=== PATIENT | female | born 1950 | race Caucasian/White ===

== ENCOUNTER 2018-10-18 09:12 | Inpatient (IN) ==
--- NOTE | 2018-10-18 09:40 | ED ---
HPI General Chief Complaint: Altered Mental Status Stated Complaint: altered mental status Time Seen by Provider: 10/18/18 09:29 Source: patient and EMS Mode of arrival: EMS Limitations: altered mental status History of Present Illness HPI narrative: Patient is a 68-year-old female with history of COPD who wears 2- 4 L of oxygen at baseline, history of atrial fibrillation currently on Eliquis, as well as history of hyperlipidemia who presents to the emergency room by EMS for evaluation of increasing lethargy. Reports that patient recently returned home from a [facility] facility, reports that this morning, patient has been less responsive. Patient is alert to person, currently complaints of shortness of breath. MD complaint: Reports altered mental status and confusion Related Data Home Medications Medication Instructions Recorded Confirmed Lactobacillus acidoph-L.bulgar 1 tab PO DAILY 10/18/18 10/18/18 [Floranex] acetaminophen 650 mg PO Q6H PRN 10/18/18 10/18/18 albuterol sulfate [Ventolin HFA] 2 puff INHALATION Q6H PRN 10/18/18 10/18/18 amiodarone 200 mg PO DAILY 10/18/18 10/18/18 apixaban [Eliquis] 5 mg PO BID 10/18/18 10/18/18 aspirin [Aspirin Childrens] 81 mg PO DAILY 10/18/18 10/18/18 atorvastatin 80 mg PO DAILY 10/18/18 10/18/18 rfgfxqu-ctkyumeuc-fyxb 1 tab PO DAILY 10/18/18 10/18/18 cholecalciferol (vitamin D3) 1,000 unit PO DAILY 10/18/18 10/18/18 [Vitamin D3] cyanocobalamin (vitamin B-12) 500 mcg PO DAILY 10/18/18 10/18/18 [Vitamin B-12] docusate sodium 100 mg PO BID 10/18/18 10/18/18 furosemide 40 mg PO BID 10/18/18 10/18/18 ipratropium-albuterol 3 ml INHALATION Q4HR PRN 10/18/18 10/18/18 magnesium oxide 400 mg PO DAILY 10/18/18 10/18/18 metoprolol succinate 50 mg PO DAILY 10/18/18 10/18/18 nitroglycerin 0.4 mg SUBLINGUAL Q5-15M PRN 10/18/18 10/18/18 ropinirole 0.25 mg PO HS 10/18/18 10/18/18 umeclidinium-vilanterol [Anoro 1 inh INHALATION Q24H 10/18/18 10/18/18 Ellipta] Allergies Allergy/AdvReac Type Severity Reaction Status Date / Time ciprofloxacin [From Cipro] Allergy Rash Verified 10/18/18 09:41 metronidazole [From Flagyl] Allergy Rash Verified 10/18/18 09:41 Review of Systems ROS: all other systems reviewed are negative [facility] History 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 HEAD: Atraumatic. Normocephalic. EYES: Pupils equal and round. No scleral icterus. No injection or drainage. ENT: No nasal bleeding or discharge. Mucous membranes pink and moist. NECK: Trachea midline. No JVD. CARDIOVASCULAR: Irregular irregular rate and rhythm. No murmur appreciated. RESPIRATORY: Increased accessory muscle use. Scattered wheezing. Breath sounds equal bilaterally. GASTROINTESTINAL: Abdomen soft, non-tender, nondistended. Hepatic and splenic margins not palpable. MUSCULOSKELETAL: No obvious deformities. No clubbing. No cyanosis. No edema. NEUROLOGICAL: Awake and alert. No obvious cranial nerve deficits. Motor grossly within normal limits. Normal speech. PSYCHIATRIC: Appropriate mood and affect; insight and judgment normal, alert to person Course Initial Documented Vital Signs Temperature 98.0 F 10/18/18 09:22 Pulse Rate 96 H 10/18/18 09:22 Respiratory Rate 36 H 10/18/18 09:22 Blood Pressure 120/73 10/18/18 09:22 Pulse Oximetry 96 10/18/18 09:22 Last Documented Vital Signs Temperature 98.0 F 10/18/18 09:22 Pulse Rate 96 H 10/18/18 09:22 Respiratory Rate 36 H 10/18/18 09:22 Blood Pressure 120/73 10/18/18 09:22 Pulse Oximetry 96 10/18/18 09:22 Procedures Intubation Time Out Performed: Yes Sedative: etomidate Mg Given: 20 Paralytic: succinylcholine Mg Given: 100 Assist Device Used: other (D Blade - glide scope) ET Tube Size: 7.5 Tube Secured Depth (cm): 23 Tube Secured Location: teeth Tube Placement Confirmation: visualized tube passing through cords and equal breath sounds bilaterally Patient Tolerated Procedure: well Intubation Complications: none Critical Care Time Critical Care Time: Yes Total Critical Care Time: 30 Attestation: Aggregate critical care time was 30 minutes. Time to perform other separately billable procedures was not included in the critical care time. My time did not include minutes spent treating any other patients simultaneously or on activities that did not directly contribute to the patient's treatment. The services I provided to this patient were to treat and/or prevent clinically significant deterioration that could result in: , decompensation, deterioration I provided critical care services requiring my management, as noted below: Chart data review, documentation time, medication orders and management, vital sign assessments/reviewing monitor data, ordering and reviewing lab tests, ordering and interpreting/reviewing x-rays and diagnostic studies, care of the patient and discussion of the patient with the admitting physicians. Medical Decision Making MDM Narrative Medical decision making narrative: During the course of the patients emergency department visit, the patients history, examination, and differential diagnosis were reviewed with the patient. The patient was placed on a investigation officer with oximetry and frequent blood pressure monitoring. The patient had an IV access obtained and blood work sent for analysis. The patient was initially provided IV Solu-Medrol as well as duo nebs and IV fluids. Patient is wheezing with increased respiratory rate, she was ordered steroids as well as neb treatments, she is alert to person, I did initiate an altered mental status workup as well. Labs and studies are reviewed, patient with hypercapnic respiratory failure with a pH of 7.19, PCO2 was 111, PO2 was 99. Patient with increasing altered mentation, plan to intubate patient. Patient's is at bedside, reports that they are from [place], reports that she was recently hospitalized and was at a nursing care facility and was discharged 1 month ago, they were here for medication. Patients reports that he has been reports that patient is a full code, reports that she has not been acting like her normal self for the past few days. Discussed with patient's need for intubation, he agrees and consents to treatment. Patient was also found to have a mild right lung base consolidation , she has been pancultured, given her recent hospitalization, she has been given Zosyn as well as vancomycin. Patient will be admitted to the hospital for further treatment. case reviewed with Dr. Grullon who accepts pt to service Medical Screen Exam Complete: Yes Emergency Medical Condition: Yes Differential Diagnosis Differential Diagnosis: Encephalopathy, pneumonia, COPD exacerbation, hypoxemia , ACS, arrhythmia Medical Records Medical records reviewed: Yes I reviewed the patient's medical records. Lab Data Result diagrams: 10/18/18 09:30 10/18/18 09:30 Lab Results 10/18/18 10/18/18 10/18/18 Range/Units 09:30 09:30 09:30 CBC w Diff Auto diff final WBC 9.0 (4.0-11.0) th/mm3 RBC 3.73 L (4.00-5.30) mil/mm3 Hgb 12.1 (11.6-15.3) gm/dL Hct 37.2 (35.0-46.0) % MCV 99.8 (80.0-100.0) fL MCH 32.6 (27.0-34.0) pg MCHC 32.7 (32.0-36.0) % RDW 17.5 H (11.6-17.2) % Plt Count 240 (150-450) th/mm3 MPV 8.4 (7.0-11.0) fL Neut % (Auto) 77.6 H (16.0-70.0) % Lymph % (Auto) 11.8 (9.0-44.0) % Dundy % (Auto) 9.4 H (0.0-8.0) % Eos % (Auto) 0.7 (0.0-4.0) % Baso % (Auto) 0.5 (0.0-2.0) % Neut # (Auto) 7.0 (1.8-7.7) th/mm3 Lymph # (Auto) 1.1 (1.0-4.8) th/mm3 Dundy # (Auto) 0.8 (0.0-0.9) th/mm3 Eos # (Auto) 0.1 (0.0-0.4) th/mm3 Baso # (Auto) 0.0 (0.0-0.2) th/mm3 WBC Differential . Differential Comment . PT 11.9 H (9.8-11.6) sec INR 1.2 Ratio APTT 26.1 (23.4-31.7) sec Puncture Site Patient Temperature O2 Saturation (90-100) % ABG pH (7.380-7.420) ABG pCO2 (38-42) mmHg ABG pO2 (61-120) mmHg ABG HCO3 (22-26) mmol/L ABG O2 Content (12.0-20.0) Vol % ABG Base Excess (-2-2) mmol/L ABG Methemoglobin (0-2) % Josse Test Hemoglobin (12.0-16.0) G/DL Carboxyhemoglobin (0-4) % O2 Delivery Device Liter Flow L/M Critical Value Sodium 142 (136-145) meq/L Potassium 4.0 (3.5-5.1) meq/L Chloride 97 L (98-107) meq/L Carbon Dioxide 42.0 H (21.0-32.0) meq/L Anion Gap 3 L (5-15) meq/L BUN 55 H (7-18) mg/dL Creatinine 1.90 H (0.50-1.00) mg/dL Estimated GFR 26 L (>89) mL/min Random Glucose 156 H (74-106) mg/dL Lactic Acid (0.4-2.0) mmol/L Calcium 8.8 (8.5-10.1) mg/dL Magnesium 2.5 (1.5-2.5) mg/dL Total Bilirubin 0.4 (0.2-1.0) mg/dL AST 29 (15-37) U/L ALT 42 (10-53) U/L Alkaline Phosphatase 127 H (45-117) U/L Troponin I 0.03 (0.02-0.05) ng/mL Total Protein 7.5 (6.4-8.2) g/dL Albumin 3.0 L (3.4-5.0) g/dL 10/18/18 10/18/18 Range/Units 09:30 10:00 CBC w Diff WBC (4.0-11.0) th/mm3 RBC (4.00-5.30) mil/mm3 Hgb (11.6-15.3) gm/dL Hct (35.0-46.0) % MCV (80.0-100.0) fL MCH (27.0-34.0) pg MCHC (32.0-36.0) % RDW (11.6-17.2) % Plt Count (150-450) th/mm3 MPV (7.0-11.0) fL Neut % (Auto) (16.0-70.0) % Lymph % (Auto) (9.0-44.0) % Dundy % (Auto) (0.0-8.0) % Eos % (Auto) (0.0-4.0) % Baso % (Auto) (0.0-2.0) % Neut # (Auto) (1.8-7.7) th/mm3 Lymph # (Auto) (1.0-4.8) th/mm3 Dundy # (Auto) (0.0-0.9) th/mm3 Eos # (Auto) (0.0-0.4) th/mm3 Baso # (Auto) (0.0-0.2) th/mm3 WBC Differential Differential Comment PT (9.8-11.6) sec INR Ratio APTT (23.4-31.7) sec Puncture Site Right radial Patient Temperature 98.6 O2 Saturation 92 (90-100) % ABG pH 7.19 L* (7.380-7.420) ABG pCO2 111 H* (38-42) mmHg ABG pO2 99 (61-120) mmHg ABG HCO3 41 H (22-26) mmol/L ABG O2 Content 16.0 (12.0-20.0) Vol % ABG Base Excess 12.8 H (-2-2) mmol/L ABG Methemoglobin 1.4 (0-2) % Josse Test Present Hemoglobin 12.2 (12.0-16.0) G/DL Carboxyhemoglobin 4.2 H (0-4) % O2 Delivery Device Nasal cannula Liter Flow 3.00 L/M Critical Value Yes Sodium (136-145) meq/L Potassium (3.5-5.1) meq/L Chloride (98-107) meq/L Carbon Dioxide (21.0-32.0) meq/L Anion Gap (5-15) meq/L BUN (7-18) mg/dL Creatinine (0.50-1.00) mg/dL Estimated GFR (>89) mL/min Random Glucose (74-106) mg/dL Lactic Acid 0.7 (0.4-2.0) mmol/L Calcium (8.5-10.1) mg/dL Magnesium (1.5-2.5) mg/dL Total Bilirubin (0.2-1.0) mg/dL AST (15-37) U/L ALT (10-53) U/L Alkaline Phosphatase (45-117) U/L Troponin I (0.02-0.05) ng/mL Total Protein (6.4-8.2) g/dL Albumin (3.4-5.0) g/dL Imaging Data Radiologist's impression: Chest X-Ray 10/18/18 09:42 CONCLUSION: Mild right base consolidation. Mild left base atelectasis. Mild cardiomegaly. ECG Data EKG Prior to Arrival: No Attestation: I personally reviewed and interpreted this ECG as follows: Interpretation: EKG at 0949: Afib at 90bpm, qt/qtc: 414/462, rbbb Discharge Plan Discharge Disposition Patient Disposition: ED Admit(ED Internal Use Only) Discharge Condition Condition: Critical Discharge Details Diagnosis: Acute respiratory failure with hypercapnia, Pneumonia Physicians Team ED Provider: Farhana Temple Rxs /Orders / Referrals /Forms Prescriptions: No Action furosemide 40 mg Tablet 40 mg PO BID RF: 0 atorvastatin 80 mg Tablet 80 mg PO DAILY RF: 0 acetaminophen 325 mg Tablet 650 mg PO Q6H PRN (Reason: Pain) RF: 0 ipratropium-albuterol 0.5 mg-3 mg(2.5 mg base)/3 mL Solution For Nebulization 3 ml INHALATION Q4HR PRN (Reason: Wheezing) RF: 0 amiodarone 200 mg Tablet 200 mg PO DAILY RF: 0 metoprolol succinate 50 mg Tablet Extended Release 24 Hr 50 mg PO DAILY RF: 0 magnesium oxide 400 mg (241.3 mg magnesium) Tablet 400 mg PO DAILY RF: 0 cyanocobalamin (vitamin B-12) [Vitamin B-12] 500 mcg Tablet 500 mcg PO DAILY RF: 0 ropinirole 0.25 mg Tablet 0.25 mg PO HS RF: 0 nitroglycerin 0.4 mg Tablet, Sublingual 0.4 mg SUBLINGUAL Q5-15M PRN (Reason: Chest Pain) RF: 0 docusate sodium 100 mg Capsule 100 mg PO BID RF: 0 aspirin [Aspirin Childrens] 81 mg Tablet,Chewable 81 mg PO DAILY RF: 0 albuterol sulfate [Ventolin HFA] 90 mcg/actuation Hfa Aerosol Inhaler 2 puff INHALATION Q6H PRN (Reason: Shortness Of Breath) RF: 0 cholecalciferol (vitamin D3) [Vitamin D3] 1,000 unit Capsule 1,000 unit PO DAILY RF: 0 ckqydpa-ullpdowgw-ecrf 333-133-5 mg Tablet 1 tab PO DAILY RF: 0 Lactobacillus acidoph-L.bulgar [Floranex] 1 million cell Tablet 1 tab PO DAILY RF: 0 apixaban [Eliquis] 5 mg Tablet 5 mg PO BID RF: 0 umeclidinium-vilanterol [Anoro Ellipta] 62.5-25 mcg/actuation Blister With Device 1 inh INHALATION Q24H RF: 0 Status ED Status: With Doctor
[2018-10-18] MEDS ORDERED: MethylPREDNISolone Sod Succinate Inj 125 MG/2 ML Vial IV.PUSH ONE (09:43)
[2018-10-18] MEDS ORDERED: Sod Chloride 0.9% Inj 1,000 ML IV.SIG SCH ×2 (09:45→11:30)
[2018-10-18 09:59] LABS: Baso % (Auto) 0.5 % (0.0-2.0); Eos # (Auto) 0.1 th/mm3 (0.0-0.4); Eos % (Auto) 0.7 % (0.0-4.0); Hematocrit 37.2 % (35.0-46.0); Hemoglobin 12.1 gm/dL (11.6-15.3); Lymph # (Auto) 1.1 th/mm3 (1.0-4.8); Lymph % (Auto) 11.8 % (9.0-44.0); Mean Corpuscular HGB Conc 32.7 % (32.0-36.0); Mean Corpuscular Hemoglobin 32.6 pg (27.0-34.0); Mean Corpuscular Volume 99.8 fL (80.0-100.0); Mean Platelet Volume 8.4 fL (7.0-11.0); Mono # (Auto) 0.8 th/mm3 (0.0-0.9); Mono % (Auto) 9.4 % (0.0-8.0); Neut % (Auto) 77.6 % (16.0-70.0); Platelet Count 240 th/mm3 (150-450); Red Blood Count 3.73 mil/mm3 (4.00-5.30); Red Cell Distribution Width 17.5 % (11.6-17.2)
--- NOTE | 2018-10-18 10:02 | XR ---
EXAM DATE: 10/18/2018 9:57 AM EST AGE/SEX: 68 years / Female INDICATIONS: Altered mental status, croup, short of breath CLINICAL DATA: This is the patient's initial encounter. Patient reports that signs and symptoms have been present for 1 day and indicates a pain score of Nonresponsive. MEDICAL/SURGICAL HISTORY: Non-responsive. Non-responsive. COMPARISON: No prior exams available for comparison. FINDINGS: There is mild consolidation at the right lung base. Mild atelectasis seen of the left base. No defini te pleural effusion demonstrated. No pneumothorax seen. Mild cardiomegaly noted. Previous median sternotomy CONCLUSION: Mild right base consolidation. Mild left base atelectasis. Mild cardiomegaly. Electronically signed by: Satya Pratt MD Board Certified Radiologist 10/18/2018 10:01 AM EST
[2018-10-18 10:08] LABS: ABG Base Excess 12.8 mmol/L (-2-2); ABG PCO2 111 mmHg (38-42); ABG PO2 99 mmHg (61-120)
[2018-10-18 10:12] LABS: Chloride 97 meq/L (98-107); Sodium 142 meq/L (136-145)
[2018-10-18] MEDS ORDERED: Vancomycin Inj 1,000 MG in Sodium Chlor 0.9% Inj 250 ML IV.SIG ONE ×2 (10:13→18:00)
[2018-10-18] MEDS ORDERED: Succinylcholine Inj 100 MG/5 ML Syringe IV.PUSH ONE (10:13)
[2018-10-18] MEDS ORDERED: Propofol 1000 mg/100 ml Inj 1,000 MG/100 ML BOTTLE IV.CONT PRN ×2 (10:13→11:11)
[2018-10-18] MEDS ORDERED: Piperacil/Tazo 3.375 GM Premix 3.375 GM/50 ML PIGGYBACK IV.SIG ONE (10:13)
[2018-10-18] MEDS ORDERED: Etomidate Inj 20 MG/10 ML Ampul IV.PUSH ONE (10:13)
[2018-10-18 10:15] LABS: Anion Gap 3 meq/L (5-15); Calcium 8.8 mg/dL (8.5-10.1)
[2018-10-18 10:16] LABS: Activated Partial Thrombo Time 26.1 sec (23.4-31.7); Blood Urea Nitrogen 55 mg/dL (7-18); Glucose,Random 156 mg/dL (74-106); INR 1.2 Ratio; Magnesium 2.5 mg/dL (1.5-2.5); Prothrombin Time 11.9 sec (9.8-11.6)
[2018-10-18 10:19] LABS: Alanine Aminotransferase 42 U/L (10-53); Aspartate Aminotransferase 29 U/L (15-37); Glomerular Filtration Rate 26 mL/min (>89)
[2018-10-18 10:20] LABS: Total Protein 7.5 g/dL (6.4-8.2)
[2018-10-18 10:21] LABS: Alkaline Phosphatase 127 U/L (45-117)
[2018-10-18] MEDS ORDERED: Succinylcholine Inj 200 MG/10 ML Vial ONE (10:21)
[2018-10-18 10:24] LABS: Troponin I 0.03 ng/mL (0.02-0.05)
--- NOTE | 2018-10-18 11:09 | XR ---
EXAM DATE: 10/18/2018 11:04 AM EST AGE/SEX: 68 years / Female INDICATIONS: ET tube placement CLINICAL DATA: This is the patient's subsequent encounter. Patient reports that signs and symptoms h ave been present for 1 day and indicates a pain score of Nonresponsive. MEDICAL/SURGICAL HISTORY: Non-responsive. Non-responsive. COMPARISON: [facility], CHEST 1V SINGLE AP, 10/18/2018. . FINDINGS: There is right greater than left bibasilar consolidation. A small right pleural effusion is also susp ected. I don't see a pneumothorax. Mild cardiomegaly unchanged. Median sternotomy changes are again noted. Patient is now intubated. Endotracheal tube tip is approximately 2.2 cm above the prince. CONCLUSION: 1. Interim intubation as above. 2. Right base consolidation probably slightly worse and with a possible small pleural effusion devel oping. 3. Left base consolidation developing. Electronically signed by: Satya Pratt MD Board Certified Radiologist 10/18/2018 11:08 AM EST
[2018-10-18] MEDS ORDERED: Acetaminophen 325 MG Tablet PO PRN (11:11)
[2018-10-18] MEDS ORDERED: Bisacodyl 10 MG Supp RECTAL PRN (11:11)
[2018-10-18] MEDS: Midazolam 100 MG/100 ML Inj 100 MG/100 ML BAG IV.CONT PRN (11:35)
[2018-10-18] MEDS: fentaNYL 10 mcg/mL Premix Drip 2,500 MCG/250 ML BAG IV.SIG PRN (11:46)
[2018-10-18] MEDS: Oral Hygiene Kit OROPHARYNG SCH ×2 (12:30→16:44)
--- NOTE | 2018-10-18 13:30 | US ---
EXAM DATE: 10/18/2018 1:26 PM EST AGE/SEX: 68 years / Female INDICATIONS: Bilateral leg swelling. CLINICAL DATA: This is the patient's initial encounter. Patient reports that signs and symptoms have been present for 1 day and indicates a pain score of Nonresponsive. MEDICAL/SURGICAL HISTORY: Chronic obstructive pulmonary disease. Gastroesophageal reflux disea se. Hypertension. Atrial fibrillation. None. COMPARISON: No prior exams available for comparison. TECHNIQUE: Venous ultrasound of both lower extremities was performed from the inguinal ligament to t he proximal calf. Real-time, color Doppler and spectral tracing, compression and augmentation techni ques were used. FINDINGS: Right Leg: Normal compression of the deep venous system from the inguinal region to the proximal cynthia f. No echogenic clot is seen. Normal response of the venous system to augmentation and respiration. Left Leg: Normal compression of the deep venous system from the inguinal region to the proximal calf . No echogenic clot is seen. Normal response of the venous system to augmentation and respiration. Other: None. CONCLUSION: 1. The study is negative for bilateral lower extremity deep venous thrombosis. Electronically signed by: Rj Lao MD Board Certified Radiologist 10/18/2018 1:29 PM EST
--- NOTE | 2018-10-18 13:59 | ECG ---
Date Performed: 10/18/2018 Time Performed: 09:49:07 PTAGE: 68 years EKG: ATRIAL FIBRILLATION RIGHT BUNDLE BRANCH BLOCK ABNORMAL ECG NO PREVIOUS TRACING DOCTOR: Jarvis Wallace Interpretating Date/Time 10/18/2018 13:58:13
[2018-10-18 14:08] LABS: ABG Base Excess 9.9 mmol/L (-2-2); ABG PCO2 63 mmHg (38-42); ABG PO2 72 mmHg (61-120)
[2018-10-18] MEDS ORDERED: Vancomycin Consult Pharmacy OTHER PRN (14:29)
[2018-10-18] MEDS: Sod Chloride 0.9% Inj 1,000 ML IV.CONT SCH (14:30)
[2018-10-18 14:38] LABS: Bilirubin,Urine Negative (Negative); Clarity,Urine Clear (Clear); Color,Urine Yellow (Yellw/Straw); Glucose,Urine (UA) Negative (Negative); Leukocyte Esterase,Urine Negative (Negative); Nitrite,Urine Negative (Negative); Urobilinogen,Urine 0.2 mg/dL (Less than 2)
[2018-10-18 14:49] LABS: Hyaline Casts,Urine 0-3 /lpf (0-3); RBC,Urine 0-3 /hpf (0-3); Squamous Epithelial Cell,Urine 0-5 /hpf (0-5); WBC,Urine 0-5 /hpf (0-5)
[2018-10-18 15:07] LABS: Albumin 2.8 g/dL (3.4-5.0)
[2018-10-18 15:11] LABS: Total Protein 7.2 g/dL (6.4-8.2)
[2018-10-18 15:20] LABS: Thyroid Stimulating Hormone 1.42 uIU/mL (0.358-3.740)
--- NOTE | 2018-10-18 15:57 | CT ---
EXAM DATE: 10/18/2018 3:36 PM EST AGE/SEX: 68 years / Female INDICATIONS: Increasing lethargy and less responsive this morning. CLINICAL DATA: This is the patient's initial encounter. Patient reports that signs and symptoms have been present for 1 day and indicates a pain score of Nonresponsive. MEDICAL/SURGICAL HISTORY: Chronic obstructive pulmonary disease. Gastroesophageal reflux disease. Hypertension. Atrial fibrillation. None. RADIATION DOSE: 60.83 CTDI (mGy) COMPARISON: No prior exams available for comparison. TECHNIQUE: CT of the head without contrast. Using automated exposure control and adjustment of the mA and/or kV according to patient size, radiation dose was kept as low as reasonably achievable to ob tain optimal diagnostic quality images. DICOM format image data is available electronically for revi ew and comparison. FINDINGS: Cerebrum: The ventricles are normal for age. No evidence of midline shift, mass lesion, hemorrhage or acute infarction. No extraaxial fluid collections are seen. Posterior Fossa: The cerebellum and brainstem are intact. The 4th ventricle is midline. The cerebe llopontine angle is unremarkable. Extracranial: The visualized portion of the orbits is intact. Skull: The calvaria is intact. No evidence of skull fracture. Endotracheal tube and orogastric tube noted. CONCLUSION: 1. No acute intracranial abnormality. . Electronically signed by: Rj Lao MD Board Certified Radiologist 10/18/2018 3:56 PM EST
[2018-10-18 16:13] LABS: T4 (Thyroxine) 10.7 mcg/dL (4.8-13.9)
--- NOTE | 2018-10-18 16:57 | XR ---
EXAM DATE: 10/18/2018 4:52 PM EST AGE/SEX: 68 years / Female INDICATIONS: NG tube placement CLINICAL DATA: This is the patient's subsequent encounter. Patient reports that signs and symptoms h ave been present for 1 day and indicates a pain score of Nonresponsive. MEDICAL/SURGICAL HISTORY: . Chronic obstructive pulmonary disease. Gastroesophageal reflux dis ease. Hypertension. Atrial fibrillation. . None. COMPARISON: No prior exams available for comparison. FINDINGS: A single frontal view of the upper abdomen in the supine position. Tip of the NG tube is just past th e GE junction in the body of the stomach. No dilated bowel loops within the visualized portions of th e abdomen. Heart is enlarged. Interstitial prominence involving the lung bases. No effusions. CONCLUSION: Tip of the NG tube just past the GE junction. Electronically signed by: Rj Lao MD Board Certified Radiologist 10/18/2018 4:56 PM EST
[2018-10-18] MEDS: Azithromycin Inj 500 MG in Sodium Chlor 0.9% Inj 250 ML IV.SIG SCH (17:12)
--- NOTE | 2018-10-18 18:06 | P.HPCC ---
History of Present Illness Service: ICU Primary Care Physician: Talha Maguire Chief Complaint: Hypercapnic respiratory failure History of Present Illness: This is a 68-year-old female that presented to the ED, with increased lethargy. Patient has a known history of COPD. Laboratory and imaging studies revealed the patient had a CO2 of 111 noted to be in hypercapnic respiratory failure and was emergently intubated in the ED. the patient was noted to have right basilar consolidation empiric antibiotics for H CAP was initiated secondary to the fact the patient had recently been in a detention facility for approximately 1 month. Patient's past medical history is significant for atrial fibrillation, COPD, morbid obesity, and tobacco use disorder. - Diagnosis (1) Tobacco use disorder Inpatient Certification: I certify that the inpatient services were ordered in accordance with Medicare regulations governing the order. 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 - Medical History Medical History: Medical History (Last Reviewed 10/18/18 @ 17:49 by Hue Grullon MD) A-fib COPD (chronic obstructive pulmonary disease) GERD (gastroesophageal reflux disease) Hypertension - Tobacco History Tobacco Use In Past 30 Days: Yes Smoking Status: Heavy tobacco smoker Tobacco Type: Cigarettes - Alcohol History How Often Do You Have a Drink Containing Alcohol: Never - Substance Use History Substance History: No History of Abuse - Travel History Recent Travel in the [place] Within the Last 8 Weeks: No Recent Travel Out of the Country Within the Last 8 Weeks: No - Immunization History Tetanus Immunization: Unsure Medications and Allergies Active Medications: Active Medications Acetaminophen (Tylenol) 650 mg PO Q6H PRN PRN Reason: PAIN 1-10 AND/OR FEVER >101F Al Hydroxide/Mg Hydroxide (Milk Of Magnmendez Liq) 30 ml PO Q12H PRN PRN Reason: Mild Constipation Albuterol (Duoneb Neb (Prn)) 1 ampul NEB Q2HR NEB PRN PRN Reason: SHORTNESS OF BREATH Albuterol (Duoneb Neb (Rony)) 1 ampul NEB Q4HR NEB [facility] Last Admin: 10/18/18 12:30 Dose: 1 ampul Amiodarone HCl (Cordarone) 200 mg PO DAILY [facility] Apixaban (Eliquis) 5 mg PO BID [facility] Aspirin (Aspirin Chew) 81 mg PO DAILY [facility] Bisacodyl (Dulcolax Supp) 10 mg RECTAL DAILY PRN PRN Reason: SEVERE CONSITIPATION Chlorhexidine Gluconate (Peridex 0.12% Oral Kit) 15 ml OROPHARYNG BID@0800, 2000 [facility] Chlorhexidine Gluconate (Chlorhexidine 2% Cloth) 3 pack TOPICAL DAILY@0400 RONY Stop: 10/24/18 03:59 Chlorhexidine Gluconate (Chlorhexidine 2% Cloth) 3 pack TOPICAL DAILY@0400 PRN PRN Reason: Extra cloth needed Stop: 10/24/18 03:59 Famotidine (Pepcid) 20 mg PO BID [facility] Famotidine (Pepcid Pf Inj) 20 mg IV.PUSH Q12HR [facility] Furosemide (Lasix Inj) 40 mg IV.PUSH BID@0900,1800 [facility] Last Admin: 10/18/18 17:08 Dose: 40 mg Midazolam HCl (Versed Inj) 100 mg in 100 mls @ 2 mls/hr IV.CONT TITRATE PRN; Protocol PRN Reason: See protocol Last Titration: 10/18/18 12:19 Dose: 2 mg/hr, 2 mls/hr Fentanyl (Fentanyl 10 Mcg/Ml Premix Drip) 2,500 mcg in 250 mls @ 5 mls/hr IV.SIG TITRATE PRN; Protocol PRN Reason: Per Protocol Last Titration: 10/18/18 16:47 Dose: 150 mcg/hr, 15 mls/hr Sodium Chloride (Ns Inj) 1,000 mls @ 84 mls/hr IV.CONT .[id number] [facility] Last Admin: 10/18/18 14:30 Dose: 84 mls/hr Propofol (Diprivan 1000 Mg/100 Ml Inj) 1,000 mg in 100 mls @ 3.198 mls/hr IV.CONT TITRATE PRN; Protocol PRN Reason: Per Protocol Cefepime HCl 1,000 mg/ Sodium (Chloride) 100 mls @ 200 mls/hr IV.SIG Q8H [facility] Last Admin: 10/18/18 16:56 Dose: 200 mls/hr Azithromycin 500 mg/ Sodium (Chloride) 250 mls @ 250 mls/hr IV.SIG Q24H [facility] Last Admin: 10/18/18 17:12 Dose: 250 mls/hr Vancomycin HCl 1,000 mg/ (Sodium Chloride) 250 mls @ 250 mls/hr IV.SIG ONCE ONE Stop: 10/18/18 18:59 Lactulose (Lactulose Liq) 30 ml PO DAILY PRN PRN Reason: SEVERE CONSITIPATION Metoprolol Tartrate (Lopressor) 25 mg PO BID [facility] Miscellaneous Medication () 1 each OROPHARYNG 0000,0400,1200,1600 [facility] Last Admin: 10/18/18 16:44 Dose: 1 each Ondansetron HCl (Zofran Inj) 4 mg IV.PUSH Q6H PRN PRN Reason: NAUSEA OR VOMITING Pharmacy Profile Note (Vancomycin Consult Pharmacy) 1 each OTHER UNSCH PRN PRN Reason: Pharmacy to dose Senna/Docusate Sodium (Paz-Colace) 1 tab PO BID [facility] Sennosides (Senokot) 17.2 mg PO Q12H PRN PRN Reason: Moderate Constipation Sodium Chloride (Ns Flush) 2 ml IV.FLUSH BID [facility] Sodium Chloride (Ns Flush) 2 ml IV.FLUSH PRN PRN PRN Reason: FLUSH AFTER USING IV ACCESS Allergies Allergy/AdvReac Type Severity Reaction Status Date / Time ciprofloxacin [From Cipro] Allergy Rash Verified 10/18/18 09:41 metronidazole [From Flagyl] Allergy Rash Verified 10/18/18 09:41 Home Medications Medication Instructions Recorded Confirmed Type Lactobacillus acidoph-L.bulgar 1 tab PO DAILY 10/18/18 10/18/18 History [Floranex] acetaminophen 650 mg PO Q6H PRN 10/18/18 10/18/18 History albuterol sulfate [Ventolin HFA] 2 puff INHALATION Q6H PRN 10/18/18 10/18/18 History amiodarone 200 mg PO DAILY 10/18/18 10/18/18 History apixaban [Eliquis] 5 mg PO BID 10/18/18 10/18/18 History aspirin [Aspirin Childrens] 81 mg PO DAILY 10/18/18 10/18/18 History atorvastatin 80 mg PO DAILY 10/18/18 10/18/18 History jtsbnmq-lhyzwbcqy-vbjk 1 tab PO DAILY 10/18/18 10/18/18 History cholecalciferol (vitamin D3) 1,000 unit PO DAILY 10/18/18 10/18/18 History [Vitamin D3] cyanocobalamin (vitamin B-12) 500 mcg PO DAILY 10/18/18 10/18/18 History [Vitamin B-12] docusate sodium 100 mg PO BID 10/18/18 10/18/18 History furosemide 40 mg PO BID 10/18/18 10/18/18 History ipratropium-albuterol 3 ml INHALATION Q4HR PRN 10/18/18 10/18/18 History magnesium oxide 400 mg PO DAILY 10/18/18 10/18/18 History metoprolol succinate 50 mg PO DAILY 10/18/18 10/18/18 History nitroglycerin 0.4 mg SUBLINGUAL Q5-15M PRN 10/18/18 10/18/18 History ropinirole 0.25 mg PO HS 10/18/18 10/18/18 History umeclidinium-vilanterol [Anoro 1 inh INHALATION Q24H 10/18/18 10/18/18 History Ellipta] Results - Labs CBC & Chem 7: 10/18/18 09:30 10/18/18 09:30 Labs: Short CBC 10/18/18 Range/Units 09:30 WBC 9.0 (4.0-11.0) th/mm3 Hgb 12.1 (11.6-15.3) gm/dL Hct 37.2 (35.0-46.0) % Plt Count 240 (150-450) th/mm3 [facility] 10/18/18 09:30 Sodium 142 Potassium 4.0 Chloride 97 L Carbon Dioxide 42.0 H BUN 55 H Creatinine 1.90 H Calcium 8.8 Cardiac Enzymes 10/18/18 10/18/18 Range/Units 09:30 14:38 Total Creatine Kinase 51 (26-192) U/L Troponin I 0.03 (0.02-0.05) ng/mL Liver Function 10/18/18 10/18/18 Range/Units 09:30 14:38 Total Bilirubin 0.4 0.7 (0.2-1.0) mg/dL Direct Bilirubin 0.3 H (0.0-0.2) mg/dL AST 29 34 (15-37) U/L ALT 42 39 (10-53) U/L Alkaline Phosphatase 127 H 119 H (45-117) U/L Albumin 3.0 L 2.8 L (3.4-5.0) g/dL Urine 10/18/18 Range/Units 13:57 Urine Color Yellow (Yellw/Straw) Urine Clarity Clear (Clear) Urine pH 6.0 (5.0-8.5) Ur Specific [place] 1.020 (1.002-1.035) Urine Protein Negative (Neg-Trace) mg/dL Urine Glucose (UA) Negative (Negative) mg/dL - Imaging Impressions Abdomen X-Ray 10/18/18 00:00 CONCLUSION: Tip of the NG tube just past the GE junction. Chest X-Ray 10/18/18 09:42 CONCLUSION: Mild right base consolidation. Mild left base atelectasis. Mild cardiomegaly. Chest X-Ray 10/18/18 10:37 CONCLUSION: 1. Interim intubation as above. 2. Right base consolidation probably slightly worse and with a possible small pleural effusion developing. 3. Left base consolidation developing. Venous Doppler Study 10/18/18 10:59 CONCLUSION: 1. The study is negative for bilateral lower extremity deep venous thrombosis. Head CT 10/18/18 14:32 CONCLUSION: 1. No acute intracranial abnormality. . Exam Vital signs: Vital Signs 10/18/18 09:22 10/18/18 09:40 10/18/18 09:50 Temperature 98.0 F Pulse Rate 96 H 99 H 97 H Respiratory Rate 36 H 18 16 Blood Pressure 120/73 Pulse Oximetry 96 10/18/18 09:53 10/18/18 10:00 10/18/18 11:11 Temperature Pulse Rate 97 H 92 H 89 Respiratory Rate 16 20 Blood Pressure 72/49 L Pulse Oximetry 94 L 99 10/18/18 11:38 10/18/18 12:01 10/18/18 12:19 Temperature Pulse Rate 92 H 80 Respiratory Rate 20 20 Blood Pressure 104/69 98/54 L 133/79 Pulse Oximetry 10/18/18 12:20 10/18/18 12:23 10/18/18 12:31 Temperature Pulse Rate 98 H 127 H Respiratory Rate 20 19 20 Blood Pressure Pulse Oximetry 99 99 10/18/18 12:35 10/18/18 12:45 10/18/18 13:00 Temperature Pulse Rate 102 H 94 H 96 H Respiratory Rate 29 H 19 18 Blood Pressure 122/72 114/89 132/71 Pulse Oximetry 96 95 98 10/18/18 13:15 10/18/18 13:30 10/18/18 13:45 Temperature Pulse Rate 102 H 90 100 H Respiratory Rate 18 17 18 Blood Pressure 114/67 118/68 113/61 Pulse Oximetry 98 95 10/18/18 13:59 10/18/18 14:00 10/18/18 14:15 Temperature Pulse Rate 102 H 90 Respiratory Rate 18 18 18 Blood Pressure 112/62 Pulse Oximetry 97 97 97 10/18/18 14:30 Temperature Pulse Rate 100 H Respiratory Rate 18 Blood Pressure 107/58 L Pulse Oximetry 95 Intake & Output 10/17/18 10/18/18 10/18/18 18:59 06:59 18:59 Intake Total 1023.5 / 1023.5 Balance 1023.5 / 1023.5 Weight 106.594 kg Intake: IV 1023.5 / 1023.5 Versed Inj 100 mg In 100 ml @ 2 1 / 1 MG/HR 2 mls/hr IV.CONT TITRATE PRN Rx#:[id number] Diprivan 1000 mg/100 ml Inj 1, 20 / 20 000 mg In 100 ml @ 5 MCG/KG/MIN 3.198 mls/hr IV.CONT TITRATE PRN Rx#:[id number] NS Inj 1,000 ML @ 1000 mls/hr 1000 / 1000 IV.SIG BOLUS RONY Rx#:[id number] fentaNYL 10 mcg/mL Premix Drip 2.5 / 2.5 2,500 mcg In 250 ml @ 50 MCG/HR 5 mls/hr IV.SIG TITRATE PRN Rx #:[id number] - Constitutional morbidly obese (Intubated and sedated) - Routine HEENT Exam Head: Present: normocephalic, atraumatic Eye: Present: PERRL ENT: Present: mucous membranes moist - Routine Neck Exam Present: supple, trachea midline - Routine Respiratory Exam Present: patient mechanically ventilated, decreased breath sounds - Routine Cardiovascular Exam Present: irregularly irregular - Routine Abdominal Exam Present: soft (obese), normoactive bowel sounds - Routine Extremities Exam Present: pulses intact, normal capillary refill Caprini VTE Risk Assessment Caprini VTE Risk Assessment: Moderate/High Risk (score >= 2) VTE Pharmacological Exception Reason: Documented Caprini Risk Assessment Model: Point Value = 1 Point Value = 2 Point Value = 3 Point Value = 5 Age 41-60 Minor surgery BMI > 25 kg/m2 Swollen legs Varicose veins or History of unexplained or recurrent spontaneous Oral contraceptives or hormone replacement Sepsis (< 1 month) Serious lung disease, including pneumonia (< 1 month) Abnormal pulmonary function Acute myocardial infarction Congestive heart failure (< 1 month) History of inflammatory bowel disease Medical patient at bed rest Age 61-74 Arthroscopic surgery Major open surgery (> 45 min) Laparoscopic surgery (> 45 min) Malignancy Confined to bed (> 72 hours) Immobilizing plaster cast Central venous access Age >= 75 History of VTE Family history of VTE Factor V Leiden Prothrombin [id number] Lupus anticoagulant Anticardiolipin antibodies Elevated serum homocysteine Heparin-induced thrombocytopenia Other congenital or acquired thrombophilia Stroke (< 1 month) Elective arthroplasty Hip, pelvis, or leg fracture Acute spinal cord injury (< 1 month) Prophylaxis Regimen: Total Risk Factor Score Risk Level Prophylaxis Regimen 0-1 Low Early ambulation 2 Moderate Order ONE of the following: *Sequential Compression Device (SCD) *Heparin 5000 units SQ BID 3-4 Higher Order ONE of the following medications: *Heparin 5000 units SQ TID *Enoxaparin/Lovenox 40 mg SQ daily (WT < 150 kg, CrCl > 30 mL/min) *Enoxaparin/Lovenox 30 mg SQ daily (WT < 150 kg, CrCl > 10-29 mL/min) *Enoxaparin/Lovenox 30 mg SQ BID (WT < 150 kg, CrCl > 30 mL/min) AND/OR *Sequential Compression Device (SCD) 5 or more Highest Order ONE of the following medications: *Heparin 5000 units SQ TID (Preferred with Epidurals) *Enoxaparin/Lovenox 40 mg SQ daily (WT < 150 kg, CrCl > 30 mL/min) *Enoxaparin/Lovenox 30 mg SQ daily (WT < 150 kg, CrCl > 10-29 mL/min) *Enoxaparin/Lovenox 30 mg SQ BID (WT < 150 kg, CrCl > 30 mL/min) AND *Sequential Compression Device (SCD) Assessment and Plan - Problem List (1) Tobacco use disorder Code(s): F17.200 - Nicotine dependence, unspecified, uncomplicated Status: Acute - Assessment and Plan Plan: Assessment Morbidly obese female recently in detention facility that presented with acute hypercapnic respiratory failure with emergent requirement for intubation, and probable HCAP pneumonia. Admit to ICU. Plan by systems: Neurologic: Continue Versed and fentanyl infusions currently at 2 mg/hour and 150 mics/hour to maintain ventilator synchrony Daily sedation vacation Neurochecks per ICU protocol CT head negative Respiratory: Acute hypercapnic respiratory failure Acute on chronic COPD exacerbation Tobacco use disorder Maintain O2 sat greater than 92% Ventilator bundle ABG 7.35/48/136/26/16 on FiO2 of 50% and mechanical ventilation Begin CPAP trials in a.m., if patient clinically stable Chest x-raynoted right basilar consolidation Duo nebs every 4 hours scheduled and every 2 hours as needed Plan for smoking cessation counseling post extubation Cardiovascular: Cardiomegaly Chronic atrial fibrillation Continue amiodarone 200 mg/day, aspirin 81 mg/day, metoprolol 25 mg twice daily , and Eliquis 5 mg twice daily Continue home dosing Lasix 40 mg twice daily Monitor QT interval-patient currently on azithromycin and home dose amiodarone Renal: SAMIRA Insert Branch strict Iand O -- Strict I/Os FEN/GI: Obesity Protein calorie malnutrition Albumin 3.0 Insert OGT Maintain n.p.o. status for now Zofran for nausea Famotidine for GI prophylaxis Hold atorvastatin Obtain lipid panel Heme/ID: Pneumonia Obtain blood, urine, sputum culture Obtain influenza A/B, strep pneumo antigen Obtain respiratory panel maker CBC Initiate empiric antibiotics cefepime, azithromycin, and vancomycin Endocrine: Glucose monitoring per ICU protocol, low-dose regimen -- SSI Prophylaxis: GI Prophylaxis Famotidine DVT Prophylaxis -- SCDs Patient on Eliquis 5 mg twice daily Lines: Of IVs x2. Central line if indicated Dispo: My billing statement This patient remains critically ill with one or more organ systems which are or may become a threat to life. I have spent in excess of 57 minutes discontinuously in the care and management of this patient. This time is exclusive of procedures, and includes, but is not limited to, evaluation of the patient, review of the medical record, discussions with family, consultants, nursing staff, or respiratory therapy, and documentation in the medical record. Code Status: Full Discussed Condition With: GRAIN ORIGINATION SPECIALIST at bedside. No family at bedside
[2018-10-18] MEDS: Chlorhexidine 0.12% Oral Kit 15 ML UDC OROPHARYNG SCH (20:38)
[2018-10-18] MEDS ORDERED: Famotidine PF Inj 20 MG/2 ML Vial IV.PUSH SCH (21:00)
[2018-10-18] MEDS: Sod Chloride 0.9% Inj 1,000 ML IV.SIG SCH ×2 (21:55→22:52)
[2018-10-18] MEDS: Metoprolol Tartrate 25 MG Tablet PO SCH (21:56)
[2018-10-18] MEDS: Famotidine 20 MG Tablet PO SCH (22:18)
[2018-10-18] MEDS: Senna/Docusate Sodium 8.6/50 MG Tablet PO SCH (22:18)
[2018-10-18] MEDS: Famotidine PF Inj 20 MG/2 ML Vial IV.PUSH SCH (22:18)
[2018-10-19] MEDS: Phenylephrine Inj 40 MG in Sodium Chlor 0.9% Inj 496 ML IV.CONT PRN ×2 (01:23→20:47)
[2018-10-19] MEDS: Sod Chloride 0.9% Inj 1,000 ML IV.CONT SCH ×2 (01:25→15:10)
[2018-10-19] MEDS: Oral Hygiene Kit OROPHARYNG SCH ×4 (01:27→18:10)
[2018-10-19] MEDS: fentaNYL 10 mcg/mL Premix Drip 2,500 MCG/250 ML BAG IV.SIG PRN (03:13)
[2018-10-19] MEDS ORDERED: Chlorhexidine Gluconate 2% 1 Pack (2 Cloths) TOPICAL PRN (04:00)
[2018-10-19 04:31] LABS: ABG PCO2 52 mmHg (38-42); ABG PO2 63 mmHg (61-120)
[2018-10-19] MEDS: Chlorhexidine Gluconate 2% 1 Pack (2 Cloths) TOPICAL SCH (04:31)
[2018-10-19 05:16] LABS: Baso # (Auto) 0.1 th/mm3 (0.0-0.2); Baso % (Auto) 1.4 % (0.0-2.0); Hematocrit 37.8 % (35.0-46.0); Hemoglobin 12.5 gm/dL (11.6-15.3); Lymph # (Auto) 0.5 th/mm3 (1.0-4.8); Lymph % (Auto) 5.7 % (9.0-44.0); Mean Corpuscular Hemoglobin 32.9 pg (27.0-34.0); Mean Corpuscular Volume 99.7 fL (80.0-100.0); Mono # (Auto) 0.6 th/mm3 (0.0-0.9); Mono % (Auto) 7.1 % (0.0-8.0); Neut # (Auto) 7.8 th/mm3 (1.8-7.7); Neut % (Auto) 85.8 % (16.0-70.0); Platelet Count 250 th/mm3 (150-450); Red Blood Count 3.79 mil/mm3 (4.00-5.30); Red Cell Distribution Width 17.8 % (11.6-17.2)
[2018-10-19 05:23] LABS: INR 1.3 Ratio
[2018-10-19 05:37] LABS: Alanine Aminotransferase 33 U/L (10-53); Albumin 2.6 g/dL (3.4-5.0); Alkaline Phosphatase 113 U/L (45-117); Anion Gap 6 meq/L (5-15); Aspartate Aminotransferase 27 U/L (15-37); Blood Urea Nitrogen 48 mg/dL (7-18); Calcium 8.1 mg/dL (8.5-10.1); Carbon Dioxide 34.4 meq/L (21.0-32.0); Chloride 106 meq/L (98-107); Glomerular Filtration Rate 40 mL/min (>89); Glucose,Random 164 mg/dL (74-106); Magnesium 1.8 mg/dL (1.5-2.5); Phosphorus 2.7 mg/dL (2.5-4.9); Potassium 4.1 meq/L (3.5-5.1); Sodium 146 meq/L (136-145)
[2018-10-19 06:27] LABS: Vancomycin,Random 11.9 Comment
--- NOTE | 2018-10-19 06:27 | XR ---
EXAM DATE: 10/19/2018 6:20 AM EST AGE/SEX: 68 years / Female INDICATIONS: Shortness of breath. CLINICAL DATA: This is the patient's subsequent encounter. Patient reports that signs and symptoms h ave been present for 2 days and indicates a pain score of Nonresponsive. MEDICAL/SURGICAL HISTORY: Non-responsive. Non-responsive. COMPARISON: [facility], CHEST 1V SINGLE AP, 10/18/2018. . FINDINGS: Endotracheal tube tip is just above the prince. Nasogastric tube descends to the stomach. Hazy bilate ral primarily basilar pleural-parenchymal opacity is grossly unchanged. Cardiac contours are grossly stable. CONCLUSION: Endotracheal tube tip is very close to the prince. Otherwise stable chest appearance Electronically signed by: Satya Garcia MD Board Certified Radiologist 10/19/2018 6:26 AM EST
[2018-10-19] MEDS ORDERED: Dextrose 50% in Water 50 ML Vial IV.PUSH PRN (06:34)
--- NOTE | 2018-10-19 07:05 | P.PNCC ---
Subjective Subjective Remarks/Hospital Course: 10/19: FiO2 requirements decreased to 50%. CPAP trials initiated early this a.m.. ETT retracted 2cm, due to chest x-ray results ,to 21cm. On daily sedation vacation GCS 11 T. She has periods of agitation she remains on low- dose Versed at 1 mg fentanyl at 100 mics currently on CPAP trials. Objective Vital Signs / I&O: Vital Signs 10/18/18 09:22 10/18/18 09:40 10/18/18 09:50 Temperature 98.0 F Pulse Rate 96 H 99 H 97 H Respiratory Rate 36 H 18 16 Blood Pressure 120/73 Pulse Oximetry 96 10/18/18 09:53 10/18/18 10:00 10/18/18 11:11 Temperature Pulse Rate 97 H 92 H 89 Respiratory Rate 16 20 Blood Pressure 72/49 L Pulse Oximetry 94 L 99 10/18/18 11:38 10/18/18 12:01 10/18/18 12:19 Temperature Pulse Rate 92 H 80 Respiratory Rate 20 20 Blood Pressure 104/69 98/54 L 133/79 Pulse Oximetry 10/18/18 12:20 10/18/18 12:23 10/18/18 12:31 Temperature Pulse Rate 98 H 127 H Respiratory Rate 20 19 20 Blood Pressure Pulse Oximetry 99 99 10/18/18 12:35 10/18/18 12:45 10/18/18 13:00 Temperature Pulse Rate 102 H 94 H 96 H Respiratory Rate 29 H 19 18 Blood Pressure 122/72 114/89 132/71 Pulse Oximetry 96 95 98 10/18/18 13:15 10/18/18 13:30 10/18/18 13:45 Temperature Pulse Rate 102 H 90 100 H Respiratory Rate 18 17 18 Blood Pressure 114/67 118/68 113/61 Pulse Oximetry 98 95 10/18/18 13:59 10/18/18 14:00 10/18/18 14:15 Temperature Pulse Rate 102 H 90 Respiratory Rate 18 18 18 Blood Pressure 112/62 Pulse Oximetry 97 97 97 10/18/18 14:30 10/18/18 16:00 10/18/18 17:55 Temperature Pulse Rate 100 H 96 H Respiratory Rate 18 18 Blood Pressure 107/58 L Pulse Oximetry 95 94 L 10/18/18 18:00 10/18/18 18:46 10/18/18 19:02 Temperature Pulse Rate 94 H 94 H 90 Respiratory Rate 17 18 Blood Pressure 112/59 L 123/64 Pulse Oximetry 95 95 10/18/18 19:17 10/18/18 19:29 10/18/18 19:32 Temperature Pulse Rate 92 H 83 96 H Respiratory Rate 18 18 18 Blood Pressure 121/72 112/61 Pulse Oximetry 94 L 10/18/18 19:33 10/18/18 20:00 10/18/18 20:02 Temperature 97.5 F L Pulse Rate 94 H 92 H Respiratory Rate 18 18 17 Blood Pressure 90/56 L Pulse Oximetry 98 91 L 86 L 10/18/18 20:17 10/18/18 20:22 10/18/18 20:33 Temperature Pulse Rate 100 H 104 H 98 H Respiratory Rate 24 36 H 18 Blood Pressure 93/61 L 77/55 L 91/50 L Pulse Oximetry 98 94 L 10/18/18 21:00 10/18/18 21:17 10/18/18 21:32 Temperature Pulse Rate 94 H 94 H 96 H Respiratory Rate 17 18 18 Blood Pressure 99/58 L 102/59 L 84/46 L Pulse Oximetry 94 L 94 L 94 L 10/18/18 21:47 10/18/18 21:49 10/18/18 22:00 Temperature Pulse Rate 100 H 98 H 94 H Respiratory Rate 18 18 Blood Pressure 73/49 L 80/44 L Pulse Oximetry 94 L 94 L 10/18/18 22:02 10/18/18 22:26 10/18/18 22:32 Temperature Pulse Rate 96 H 116 H 100 H Respiratory Rate 18 32 H 18 Blood Pressure 85/47 L 86/67 L 98/45 L Pulse Oximetry 93 L 96 93 L 10/18/18 23:00 10/18/18 23:02 10/18/18 23:17 Temperature Pulse Rate 94 H 94 H 100 H Respiratory Rate 17 17 18 Blood Pressure 84/57 L 92/56 L 95/60 L Pulse Oximetry 92 L 92 L 92 L 10/19/18 00:00 10/19/18 00:15 10/19/18 00:30 Temperature 98 F Pulse Rate 96 H 98 H 90 Respiratory Rate 18 18 18 Blood Pressure 91/53 L 96/52 L 81/49 L Pulse Oximetry 92 L 95 97 10/19/18 00:45 10/19/18 00:52 10/19/18 01:00 Temperature Pulse Rate 104 H 94 H 98 H Respiratory Rate 18 18 18 Blood Pressure 74/50 L 68/49 L 83/45 L Pulse Oximetry 96 96 97 10/19/18 01:18 10/19/18 01:30 10/19/18 01:45 Temperature Pulse Rate 100 H 96 H 100 H Respiratory Rate 29 H 18 18 Blood Pressure 107/69 114/67 132/73 Pulse Oximetry 72 L 100 99 10/19/18 02:00 10/19/18 02:01 10/19/18 02:12 Temperature Pulse Rate 98 H 96 H Respiratory Rate 18 18 18 Blood Pressure 133/76 116/65 Pulse Oximetry 100 100 98 10/19/18 02:31 10/19/18 02:46 10/19/18 03:00 Temperature Pulse Rate 102 H 94 H 92 H Respiratory Rate 17 18 23 Blood Pressure 108/62 98/58 L 101/57 L Pulse Oximetry 99 98 100 10/19/18 03:16 10/19/18 03:31 10/19/18 03:46 Temperature Pulse Rate 96 H 92 H 90 Respiratory Rate 18 18 18 Blood Pressure 85/41 L 107/61 113/61 Pulse Oximetry 97 99 99 10/19/18 04:00 10/19/18 04:01 10/19/18 04:16 Temperature 98.6 F Pulse Rate 96 H 98 H 102 H Respiratory Rate 18 18 20 Blood Pressure 115/57 L 119/64 Pulse Oximetry 99 99 10/19/18 04:24 10/19/18 04:25 10/19/18 04:31 Temperature Pulse Rate 101 H 102 H Respiratory Rate 18 18 18 Blood Pressure 108/63 Pulse Oximetry 97 99 10/19/18 04:46 10/19/18 05:00 10/19/18 05:16 Temperature Pulse Rate 102 H 102 H 96 H Respiratory Rate 18 18 18 Blood Pressure 111/62 109/62 115/51 L Pulse Oximetry 100 100 100 10/19/18 05:31 10/19/18 05:46 10/19/18 06:00 Temperature Pulse Rate 102 H 104 H 100 H Respiratory Rate 18 22 31 H Blood Pressure 112/57 L 109/54 L 96/51 L Pulse Oximetry 100 100 88 L 10/19/18 06:16 10/19/18 06:18 10/19/18 06:20 Temperature Pulse Rate 94 H 102 H Respiratory Rate 18 18 14 Blood Pressure 77/47 L 78/45 L Pulse Oximetry 98 97 93 L Intake & Output 10/18/18 10/18/18 10/19/18 06:59 18:59 06:59 Intake Total 1023.5 / 1023.5 4950 / 4950 Output Total 650 / 650 1105 / 1105 Balance 373.5 / 373.5 3845 / 3845 Weight 106.594 kg 113.4 kg Intake: IV 1023.5 / 1023.5 4950 / 4950 Versed Inj 100 mg In 100 ml @ 2 1 / 1 MG/HR 2 mls/hr IV.CONT TITRATE PRN Rx#:[id number] Diprivan 1000 mg/100 ml Inj 1, 20 / 20 000 mg In 100 ml @ 5 MCG/KG/MIN 3.198 mls/hr IV.CONT TITRATE PRN Rx#:[id number] NS Inj 1,000 ML @ 84 mls/hr IV. 1000 / 1000 CONT .[id number] MERE Rx#: [id number] Azithromycin Inj 500 MG In NS 250 / 250 Inj 250 ML @ 250 mls/hr IV.SIG Q24H MERE Rx#:[id number] Maxipime Inj 1,000 MG In NS Inj 200 / 200 100 ML @ 200 mls/hr IV.SIG Q8H MERE Rx#:[id number] NS Inj 1,000 ML @ 2000 mls/hr 1000 / 1000 3000 / 3000 IV.SIG Q30M MERE Rx#:[id number] Vancomycin Inj 1,000 MG In NS 250 / 250 Inj 250 ML @ 250 mls/hr IV.SIG ONCE ONE Rx#:[id number] fentaNYL 10 mcg/mL Premix Drip 2.5 / 2.5 250 / 250 2,500 mcg In 250 ml @ 50 MCG/HR 5 mls/hr IV.SIG TITRATE PRN Rx #:[id number] Oral 0 / 0 0 / 0 Output: Urine Amount (Catheter) 650 / 650 1075 / 1075 Indwelling Urethral Catheter 650 / 650 1075 / 1075 Gastric Drainage 30 / 30 Orogastric Tube 30 / 30 Other: # Bowel Movements 0 Weight On Admission 112.5 kg Result Diagrams: 10/19/18 04:35 10/19/18 04:35 Other Results: Laboratory Results CBC w Diff Auto diff final 10/19/18 04:35 WBC 9.0 th/mm3 (4.0-11.0) 10/19/18 04:35 RBC 3.79 mil/mm3 (4.00-5.30) L 10/19/18 04:35 Hgb 12.5 gm/dL (11.6-15.3) 10/19/18 04:35 Hct 37.8 % (35.0-46.0) 10/19/18 04:35 MCV 99.7 fL (80.0-100.0) 10/19/18 04:35 MCH 32.9 pg (27.0-34.0) 10/19/18 04:35 MCHC 33.0 % (32.0-36.0) 10/19/18 04:35 RDW 17.8 % (11.6-17.2) H 10/19/18 04:35 Plt Count 250 th/mm3 (150-450) 10/19/18 04:35 MPV 9.0 fL (7.0-11.0) 10/19/18 04:35 Neut % (Auto) 85.8 % (16.0-70.0) H 10/19/18 04:35 Lymph % (Auto) 5.7 % (9.0-44.0) L 10/19/18 04:35 [place] % (Auto) 7.1 % (0.0-8.0) 10/19/18 04:35 Eos % (Auto) 0.0 % (0.0-4.0) 10/19/18 04:35 Baso % (Auto) 1.4 % (0.0-2.0) 10/19/18 04:35 Neut # (Auto) 7.8 th/mm3 (1.8-7.7) H 10/19/18 04:35 Lymph # (Auto) 0.5 th/mm3 (1.0-4.8) L 10/19/18 04:35 [place] # (Auto) 0.6 th/mm3 (0.0-0.9) 10/19/18 04:35 Eos # (Auto) 0.0 th/mm3 (0.0-0.4) 10/19/18 04:35 Baso # (Auto) 0.1 th/mm3 (0.0-0.2) 10/19/18 04:35 WBC Differential . 10/19/18 04:35 Differential Comment . 10/19/18 04:35 PT 13.0 sec (9.8-11.6) H 10/19/18 04:35 INR 1.3 Ratio 10/19/18 04:35 APTT 26.1 sec (23.4-31.7) 10/18/18 09:30 Puncture Site Right brachial 10/19/18 04:10 Patient Temperature 98.6 10/19/18 04:10 O2 Saturation 91 % (90-100) 10/19/18 04:10 ABG pH 7.42 (7.380-7.420) 10/19/18 04:10 ABG pCO2 52 mmHg (38-42) H* 10/19/18 04:10 ABG pO2 63 mmHg (61-120) 10/19/18 04:10 ABG HCO3 33 mmol/L (22-26) H 10/19/18 04:10 ABG O2 Content 15.4 Vol % (12.0-20.0) 10/19/18 04:10 ABG Base Excess 8.0 mmol/L (-2-2) H 10/19/18 04:10 ABG Methemoglobin 0.7 % (0-2) 10/19/18 04:10 Josse Test + 10/18/18 14:00 Hemoglobin 12.0 G/DL (12.0-16.0) 10/19/18 04:10 Carboxyhemoglobin 1.9 % (0-4) 10/19/18 04:10 O2 Delivery Device Ventilator 10/19/18 04:10 Liter Flow 3.00 L/M 10/18/18 10:00 Vent Setting Prvc/ac 10/19/18 04:10 Inspired O2 40 % 10/19/18 04:10 Critical Value Yes 10/19/18 04:10 Sodium 146 meq/L (136-145) H 10/19/18 04:35 Potassium 4.1 meq/L (3.5-5.1) 10/19/18 04:35 Chloride 106 meq/L (98-107) D 10/19/18 04:35 Carbon Dioxide 34.4 meq/L (21.0-32.0) H 10/19/18 04:35 Anion Gap 6 meq/L (5-15) 10/19/18 04:35 BUN 48 mg/dL (7-18) H 10/19/18 04:35 Creatinine 1.30 mg/dL (0.50-1.00) H 10/19/18 04:35 Estimated GFR 40 mL/min (>89) L 10/19/18 04:35 Random Glucose 164 mg/dL (74-106) H 10/19/18 04:35 Lactic Acid 1.7 mmol/L (0.4-2.0) 10/19/18 04:35 Calcium 8.1 mg/dL (8.5-10.1) L 10/19/18 04:35 Phosphorus 2.7 mg/dL (2.5-4.9) 10/19/18 04:35 Magnesium 1.8 mg/dL (1.5-2.5) D 10/19/18 04:35 Total Bilirubin 0.7 mg/dL (0.2-1.0) 10/19/18 04:35 Direct Bilirubin 0.3 mg/dL (0.0-0.2) H 10/18/18 14:38 Indirect Bilirubin 0.4 mg/dL (0.0-0.8) 10/18/18 14:38 AST 27 U/L (15-37) 10/19/18 04:35 ALT 33 U/L (10-53) 10/19/18 04:35 Alkaline Phosphatase 113 U/L (45-117) 10/19/18 04:35 Ammonia 44 mcmol/L (11-32) H 10/18/18 14:38 Total Creatine Kinase 51 U/L (26-192) 10/18/18 14:38 Troponin I 0.03 ng/mL (0.02-0.05) 10/18/18 09:30 Total Protein 7.0 g/dL (6.4-8.2) 10/19/18 04:35 Albumin 2.6 g/dL (3.4-5.0) L 10/19/18 04:35 TSH 1.420 uIU/mL (0.358-3.740) 10/18/18 14:38 Thyroxine (T4) 10.7 mcg/dL (4.8-13.9) 10/18/18 14:38 Urine Color Yellow (Yellw/Straw) 10/18/18 13:57 Urine Clarity Clear (Clear) 10/18/18 13:57 Urine pH 6.0 (5.0-8.5) 10/18/18 13:57 Ur Specific [place] 1.020 (1.002-1.035) 10/18/18 13:57 Urine Protein Negative mg/dL (Neg-Trace) 10/18/18 13:57 Urine Glucose (UA) Negative mg/dL (Negative) 10/18/18 13:57 Urine Ketones Negative mg/dL (Negative) 10/18/18 13:57 Urine Occult Blood Negative (Negative) 10/18/18 13:57 Urine Nitrate Negative (Negative) 10/18/18 13:57 Urine Bilirubin Negative (Negative) 10/18/18 13:57 Urine Urobilinogen 0.2 mg/dL (Less than 2) 10/18/18 13:57 Ur Leukocyte Esterase Negative (Negative) 10/18/18 13:57 Urine RBC 0-3 /hpf (0-3) 10/18/18 13:57 Urine WBC 0-5 /hpf (0-5) 10/18/18 13:57 Ur Squamous Epith Cells 0-5 /hpf (0-5) 10/18/18 13:57 Hyaline Casts 0-3 /lpf (0-3) 10/18/18 13:57 Micro UA Comment Culture not ind 10/18/18 13:57 Ur Microscopic Review Microscopic reviewed 10/18/18 13:57 Urine Culture Comments Culture not ind 10/18/18 13:57 Nasal Screen MRSA (PCR) Not detected (Negative) 10/18/18 13:49 Random Vancomycin 11.9 Comment 10/19/18 04:35 Impressions Abdomen X-Ray 10/18/18 00:00 CONCLUSION: Tip of the NG tube just past the GE junction. Venous Doppler Study 10/18/18 10:59 CONCLUSION: 1. The study is negative for bilateral lower extremity deep venous thrombosis. Head CT 10/18/18 14:32 CONCLUSION: 1. No acute intracranial abnormality. . Chest X-Ray 10/19/18 04:00 CONCLUSION: Endotracheal tube tip is very close to the prince. Otherwise stable chest appearance Objective Remarks: GENERAL: This is a well-developed well-nourished morbidly obese female currently sedated and intubated undergoing CPAP trials SKIN: Warm and dry. Skin integrity intact HEAD: Atraumatic. Normocephalic. EYES: Pupils equal and round. EOMI. No scleral icterus. No injection or drainage. ENT: No nasal bleeding or discharge. Mucous membranes pink and moist. NECK: Trachea midline. No JVD. CARDIOVASCULAR: Irregular rate irregular rhythm. Atrial fibrillation RESPIRATORY: No accessory muscle use. Clear to auscultation. Breath sounds equal bilaterally. GASTROINTESTINAL: Abdomen soft, non-tender, obese nondistended. No guarding. MUSCULOSKELETAL: Extremities without clubbing, cyanosis, or edema. No obvious deformities. NEUROLOGICAL: RASS -2 No gross focal/sensory deficits. Follows commands in all 4 extremities. Easily agitated on sedation vacation Assessment and Plan - Problem List (1) Tobacco use disorder Code(s): F17.200 - Nicotine dependence, unspecified, uncomplicated Status: Acute - Assessment and Plan Plan: Plan by systems: Neurologic: Continue Versed and fentanyl infusions currently at 2 mg/hour and 150 mics/hour to maintain ventilator synchrony Daily sedation vacation Neurochecks per ICU protocol CT head negative Respiratory: Acute hypercapnic respiratory failure Acute on chronic COPD exacerbation Tobacco use disorder Maintain O2 sat greater than 92% Ventilator bundle Begin CPAP trials in a.m., if patient clinically stable Chest x-rayETT tip noted near prince retracted 2 cm to 21 cm at the lip Duo nebs every 4 hours scheduled and every 2 hours as needed Plan for smoking cessation counseling post extubation Begin Solu-Medrol 40 every 8hrs Patient has home O2 dependency ranging 3-4 LPM, per report of family Cardiovascular: Cardiomegaly Chronic atrial fibrillation Continue amiodarone 200 mg/day, aspirin 81 mg/day, metoprolol 25 mg twice daily (with parameters), and Eliquis 5 mg twice daily Continue home dosing Lasix 40 mg twice daily Monitor QT interval-patient currently on azithromycin and home dose amiodarone Renal: SAMIRA Insert Branch strict Iand O -- Strict I/Os FEN/GI: Obesity Protein calorie malnutrition Albumin 3.0 Maintain OGT to low intermittent wall suction Zofran for nausea Famotidine for GI prophylaxis Hold atorvastatin Obtain lipid panel Heme/ID: Pneumonia Obtain blood, urine, sputum culture influenza A/B- Neg strep pneumo antigen 10/18 respiratory panel- NGTD Monitor CBC Initiate empiric antibiotics cefepime, azithromycin, and vancomycin(day 2) Endocrine: Glucose monitoring per ICU protocol, medium-dose regimen -- SSI Prophylaxis: GI Prophylaxis Famotidine DVT Prophylaxis -- SCDs Patient on Eliquis 5 mg twice daily Lines: Of IVs x2. 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
[2018-10-19] MEDS: MethylPREDNISolone Sod Succinate Inj 40 MG/ML Vial IV.PUSH SCH ×3 (07:58→23:16)
[2018-10-19] MEDS: Metoprolol Tartrate 25 MG Tablet PO SCH (08:05)
[2018-10-19] MEDS: Famotidine 20 MG Tablet PO SCH ×2 (08:05→20:33)
[2018-10-19] MEDS: Amiodarone 200 MG Tablet PO SCH (08:05)
[2018-10-19] MEDS: Senna/Docusate Sodium 8.6/50 MG Tablet PO SCH ×2 (08:05→20:33)
[2018-10-19] MEDS: Chlorhexidine 0.12% Oral Kit 15 ML UDC OROPHARYNG SCH ×2 (08:06→20:32)
[2018-10-19] MEDS: Famotidine PF Inj 20 MG/2 ML Vial IV.PUSH SCH ×2 (08:06→20:33)
[2018-10-19] MEDS ORDERED: Amiodarone 200 MG Tablet PO SCH (09:00)
--- NOTE | 2018-10-19 14:14 | ECG ---
Date Performed: 10/19/2018 Time Performed: 07:53:24 PTAGE: 68 years EKG: ATRIAL FIBRILLATION RIGHT BUNDLE BRANCH BLOCK ABNORMAL ECG Since the PREVIOUS TRACING , no significant change noted PREVIOUS TRACIN10/18/2018 09.49 DOCTOR: Roscoe Matos Interpretating Date/Time 10/19/2018 14:10:42
[2018-10-19] MEDS: Insulin NovoLOG Aspart Correctional Sugar Inj SQ SCH ×2 (15:09→17:54)
[2018-10-19] MEDS: Azithromycin Inj 500 MG in Sodium Chlor 0.9% Inj 250 ML IV.SIG SCH (16:18)
[2018-10-19] MEDS: Vancomycin Inj 1,250 MG in Sodium Chlor 0.9% Inj 250 ML IV.SIG SCH (20:32)
--- NOTE | 2018-10-19 21:27 | ECHRPT ---
Indication: CORONARY ATHEROSCLEROSIS CONCLUSIONS Normal left ventricular size. Wall thickness is normal. The left ventricular systolic function is moderately reduced with an estimated ejection fraction in the range of 40-45%. The right ventricle is mildly dilated. The right ventricular systoilc function is moderately decreased. The right atrial size is upper limits of normal. Mild thickening of the mitral valve leaflets. Trace mitral valve regurgitation. Mitral annular calcification is present. Aortic valve sclerosis is present. There is mild to moderate tricuspid valve regurgitation. The estimated pulmonary arterial pressure is 54mmHg. Mild pulmonary valve regurgitation. BP: / HR: Rhythm: Atrial fibrillation MEASUREMENTS (Male / Female) Normal Values Technical Quality:Technically difficult study 2D ECHO LV Diastolic Diameter PLAX 5.6 cm 4.2 - 5.9 / 3.9 - 5.3 cm LV Systolic Diameter PLAX 4.6 cm IVS Diastolic Thickness 1.1 cm 0.6 - 1.0 / 0.6 - 0.9 cm LVPW Diastolic Thickness 1.0 cm 0.6 - 1.0 / 0.6 - 0.9 cm LV Relative Wall Thickness 0.4 RV Internal Dim ED PLAX 4.4 cm LVOT Diameter 1.6 cm Aortic Root Diameter 3.1 cm LA Systolic Diameter LX 4.5 cm 3.0 - 4.0 / 2.7 - 3.8 cm M-MODE AV Cusp Separation MM 1.6 cm DOPPLER AV Peak Velocity 149.3 cm/s AV Peak Gradient 8.9 mmHg AV Mean Gradient 4.7 mmHg AV Velocity Time Integral 30.1 cm LVOT Peak Velocity 92.6 cm/s LVOT Peak Gradient 3.4 mmHg LVOT Velocity Time Integral 18.8 cm AV Area Cont Eq vti 1.3 cm AV Area Cont Eq pk 1.2 cm MV Peak Velocity 175.2 cm/s MV Peak Gradient 12.3 mmHg MV Mean Velocity 90.3 cm/s MV Mean Gradient 4.5 mmHg MV Area PHT 4.2 cm Mitral E Point Velocity 154.0 cm/s LV E' Lateral Velocity 10.7 cm/s Mitral E to LV E' Lateral Ratio 14.4 LV E' Septal Velocity 6.5 cm/s Mitral E to LV E' Septal Ratio 23.6 TR Peak Velocity 314.0 cm/s TR Peak Gradient 39.4 mmHg Right Atrial Pressure 15.0 mmHg Pulmonary Artery Systolic Pressu 54.4 mmHg Right Ventricular Systolic Press 54.4 mmHg PV Peak Velocity 124.0 cm/s PV Peak Gradient 6.2 mmHg FINDINGS LEFT VENTRICLE Normal left ventricular size. Wall thickness is normal. The left ventricular systolic function is moderately reduced with an estimated ejection fraction in the range of 40-45%. RIGHT VENTRICLE The right ventricle is mildly dilated. The right ventricular systoilc function is moderately decreased. LEFT ATRIUM The left atrial size is normal. RIGHT ATRIUM The right atrial size is upper limits of normal. ATRIAL SEPTUM Normal atrial septal thickness without atrial level shunting by limited color doppler interrogation. AORTA The aortic root and proximal ascending aorta are normal in size on limited imaging. MITRAL VALVE Mild thickening of the mitral valve leaflets. Trace mitral valve regurgitation. Mitral annular calcification is present. AORTIC VALVE Aortic valve sclerosis is present. TRICUSPID VALVE There is mild to moderate tricuspid valve regurgitation. The estimated pulmonary arterial pressure is 54mmHg. PULMONARY VALVE Mild pulmonary valve regurgitation. VESSELS The inferior vena cava is normal in size. PERICARDIUM No pericardial effusion. Vik Weathers MD (Electronically Signed) Final Date:19 October 2018 21:26
[2018-10-20] MEDS: Oral Hygiene Kit OROPHARYNG SCH ×4 (01:27→17:45)
[2018-10-20] MEDS: Insulin NovoLOG Aspart Correctional Sugar Inj SQ SCH ×4 (01:27→18:04)
[2018-10-20] MEDS: Sod Chloride 0.9% Inj 1,000 ML IV.CONT SCH ×2 (04:06→18:24)
[2018-10-20] MEDS: Midazolam 100 MG/100 ML Inj 100 MG/100 ML BAG IV.CONT PRN ×2 (04:07→11:29)
[2018-10-20] MEDS: fentaNYL 10 mcg/mL Premix Drip 2,500 MCG/250 ML BAG IV.SIG PRN ×2 (04:08→21:50)
[2018-10-20] MEDS: Chlorhexidine Gluconate 2% 1 Pack (2 Cloths) TOPICAL SCH (04:11)
[2018-10-20 04:43] LABS: ABG Base Excess 6.7 mmol/L (-2-2); ABG PCO2 52 mmHg (38-42); ABG PO2 57 mmHg (61-120)
[2018-10-20 05:28] LABS: Baso # (Auto) 0.1 th/mm3 (0.0-0.2); Baso % (Auto) 1.4 % (0.0-2.0); Lymph # (Auto) 0.4 th/mm3 (1.0-4.8); Lymph % (Auto) 4.9 % (9.0-44.0); Mean Corpuscular HGB Conc 32.5 % (32.0-36.0); Mean Corpuscular Hemoglobin 32.4 pg (27.0-34.0); Mean Corpuscular Volume 99.8 fL (80.0-100.0); Mean Platelet Volume 8.6 fL (7.0-11.0); Mono # (Auto) 0.3 th/mm3 (0.0-0.9); Neut # (Auto) 8.2 th/mm3 (1.8-7.7); Neut % (Auto) 90.7 % (16.0-70.0); Platelet Count 204 th/mm3 (150-450); Red Blood Count 3.71 mil/mm3 (4.00-5.30)
[2018-10-20 05:37] LABS: Calcium 8.5 mg/dL (8.5-10.1); Carbon Dioxide 33.1 meq/L (21.0-32.0); Magnesium 1.9 mg/dL (1.5-2.5)
[2018-10-20 05:41] LABS: Phosphorus 2.9 mg/dL (2.5-4.9)
[2018-10-20] MEDS: MethylPREDNISolone Sod Succinate Inj 40 MG/ML Vial IV.PUSH SCH ×3 (06:03→21:51)
--- NOTE | 2018-10-20 06:14 | XR ---
EXAM DATE: 10/20/2018 6:10 AM EST AGE/SEX: 68 years / Female INDICATIONS: Shortness of breath. CLINICAL DATA: This is the patient's subsequent encounter. Patient reports that signs and symptoms h ave been present for 3 days and indicates a pain score of Nonresponsive. MEDICAL/SURGICAL HISTORY: Chronic obstructive pulmonary disease. Gastroesophageal reflux disea se. Hypertension. Atrial fibrillation. None. COMPARISON: [facility], CHEST 1V SINGLE AP, 10/19/2018. . FINDINGS: Endotracheal tube is present in good position with tip couple centimeters above the prince. Nasogastr ic tube descends into the stomach. Hazy bibasilar pleural-parenchymal opacity is slightly improved fr om yesterday's exam. Cardiac contours are grossly unchanged. CONCLUSION: Slight improvement in aeration. Electronically signed by: Satya Garcia MD Board Certified Radiologist 10/20/2018 6:13 AM EST
--- NOTE | 2018-10-20 07:24 | P.PNCC ---
Subjective Subjective Remarks/Hospital Course: 10/19: FiO2 requirements decreased to 50%. CPAP trials initiated early this a.m.. ETT retracted 2cm, due to chest x-ray results ,to 21cm. On daily sedation vacation GCS 11 T. She has periods of agitation she remains on low- dose Versed at 1 mg fentanyl at 100 mics currently on CPAP trials. 10/20: Afebrile .GCS 11 T off sedation. Methylprednisolone initiated yesterday chest x-ray revealing slight improvement in irrigation today. Pulmonology consult pending appreciate recommendations . Patient normally utilizes home O2 3-4 L via nasal cannula . IV fluids discontinued last night noted rales in lung bases. Tube feeds to be initiated today. The patient continues on empiric antibiotics, influenza A/B pending. FiO2 requirements increased last night to 70% with noted ABG PaO2 of 57. Patient failed CPAP trials yesterday. Objective Vital Signs / I&O: Vital Signs 10/19/18 07:01 10/19/18 07:16 10/19/18 07:31 Temperature Pulse Rate 98 H 92 H 102 H Respiratory Rate 13 11 L 15 Blood Pressure 95/46 L 102/51 L 108/48 L Pulse Oximetry 96 96 95 10/19/18 07:46 10/19/18 08:00 10/19/18 08:04 Temperature Pulse Rate 98 H 86 102 H Respiratory Rate 17 18 16 Blood Pressure 84/46 L 101/56 L Pulse Oximetry 97 93 L 93 L 10/19/18 09:00 10/19/18 10:00 10/19/18 10:05 Temperature Pulse Rate 106 H 92 H 92 H Respiratory Rate 19 16 Blood Pressure 98/54 L Pulse Oximetry 93 L 93 L 10/19/18 11:00 10/19/18 11:06 10/19/18 11:10 Temperature Pulse Rate 96 H 87 Respiratory Rate 14 10 L 10 L Blood Pressure 98/55 L Pulse Oximetry 92 L 93 L 10/19/18 12:00 10/19/18 13:00 10/19/18 14:00 Temperature Pulse Rate 92 H 96 H 94 H Respiratory Rate 10 L 9 L 10 L Blood Pressure 99/52 L 105/55 L 93/51 L Pulse Oximetry 91 L 92 L 93 L 10/19/18 15:00 10/19/18 15:30 10/19/18 16:00 Temperature Pulse Rate 96 H 114 H Respiratory Rate 17 23 Blood Pressure 109/62 91/47 L Pulse Oximetry 92 L 89 L 93 L 10/19/18 17:00 10/19/18 17:05 10/19/18 17:06 Temperature Pulse Rate 86 96 H Respiratory Rate 10 L 41 H Blood Pressure 75/50 L 86/52 L Pulse Oximetry 93 L 10/19/18 17:13 10/19/18 17:17 10/19/18 18:00 Temperature Pulse Rate 98 H 84 Respiratory Rate 18 12 Blood Pressure 103/55 L Pulse Oximetry 93 L 92 L 10/19/18 18:39 10/19/18 19:17 10/19/18 20:00 Temperature Pulse Rate 100 H 87 106 H Respiratory Rate 14 12 19 Blood Pressure 96/60 L 90/60 L Pulse Oximetry 94 L 93 L 92 L 10/19/18 21:00 10/19/18 22:00 10/19/18 22:10 Temperature 98.9 F Pulse Rate 100 H 96 H Respiratory Rate 15 25 H 9 L Blood Pressure 90/63 L 97/59 L Pulse Oximetry 92 L 94 L 94 L 10/19/18 22:28 10/19/18 23:00 10/19/18 23:55 Temperature Pulse Rate 94 H 94 H Respiratory Rate 10 L 8 L Blood Pressure 97/59 L 99/54 L Pulse Oximetry 92 L 93 L 92 L 10/20/18 00:00 10/20/18 01:00 10/20/18 01:30 Temperature 98.6 F Pulse Rate 96 H 98 H 100 H Respiratory Rate 17 18 18 Blood Pressure 110/63 110/63 124/72 Pulse Oximetry 92 L 91 L 91 L 10/20/18 01:45 10/20/18 02:00 10/20/18 02:39 Temperature Pulse Rate 102 H 96 H Respiratory Rate 18 17 Blood Pressure 103/67 Pulse Oximetry 92 L 90 L 10/20/18 03:00 10/20/18 03:20 10/20/18 03:31 Temperature Pulse Rate 98 H 90 100 H Respiratory Rate 18 18 18 Blood Pressure 87/67 L 87/57 L Pulse Oximetry 90 L 89 L 10/20/18 03:39 10/20/18 04:00 10/20/18 04:01 Temperature Pulse Rate 102 H 116 H 102 H Respiratory Rate 18 39 H Blood Pressure 96/86 L 116/79 Pulse Oximetry 90 L 93 L 10/20/18 04:25 10/20/18 04:34 10/20/18 05:04 Temperature 98.3 F Pulse Rate 96 H 98 H Respiratory Rate 18 18 18 Blood Pressure 110/64 96/68 L Pulse Oximetry 90 L 91 L 92 L 10/20/18 05:25 10/20/18 06:00 10/20/18 06:04 Temperature Pulse Rate 91 H 106 H Respiratory Rate 18 22 Blood Pressure 107/67 Pulse Oximetry 92 L Intake & Output 10/19/18 10/19/18 10/20/18 06:59 18:59 06:59 Intake Total 4950 / 4950 1450 / 1450 2312.5 / 2312.5 Output Total 1105 / 1105 800 / 800 1200 / 1200 Balance 3845 / 3845 650 / 650 1112.5 / 1112.5 Weight 113.4 kg 115 kg Intake: IV 4950 / 4950 1450 / 1450 2312.5 / 2312.5 Versed Inj 100 mg In 100 ml @ 2 100 / 100 MG/HR 2 mls/hr IV.CONT TITRATE PRN Rx#:[id number] Neosynephrine Inj 40 MG In NS 500 / 500 Inj 496 ML @ 40 MCG/MIN 30 mls/ hr IV.CONT TITRATE PRN Rx#: [id number] NS Inj 1,000 ML @ 84 mls/hr IV. 1000 / 1000 1000 / 1000 1000 / 1000 CONT .[id number] MERE Rx#: [id number] Azithromycin Inj 500 MG In NS 250 / 250 250 / 250 Inj 250 ML @ 250 mls/hr IV.SIG Q24H MERE Rx#:[id number] Maxipime Inj 1,000 MG In NS Inj 200 / 200 200 / 200 200 / 200 100 ML @ 200 mls/hr IV.SIG Q8H MERE Rx#:[id number] NS Inj 1,000 ML @ 2000 mls/hr 3000 / 3000 IV.SIG Q30M MERE Rx#:[id number] Vancomycin Inj 1,000 MG In NS 250 / 250 Inj 250 ML @ 250 mls/hr IV.SIG ONCE ONE Rx#:[id number] Vancomycin Inj 1,250 MG In NS 262.5 / 262.5 Inj 250 ML @ 250 mls/hr IV.SIG Q24H MERE Rx#:[id number] fentaNYL 10 mcg/mL Premix Drip 250 / 250 250 / 250 2,500 mcg In 250 ml @ 50 MCG/HR 5 mls/hr IV.SIG TITRATE PRN Rx #:[id number] Oral 0 / 0 Output: Urine 1200 / 1200 Urine Amount (Catheter) 1075 / 1075 800 / 800 Indwelling Urethral Catheter 1075 / 1075 800 / 800 Gastric Drainage Orogastric Tube Other: # Bowel Movements 0 Weight On Admission 112.5 kg Result Diagrams: 10/20/18 04:53 10/20/18 04:53 Other Results: Laboratory Results CBC w Diff Auto diff final 10/20/18 04:53 WBC 9.0 th/mm3 (4.0-11.0) 10/20/18 04:53 RBC 3.71 mil/mm3 (4.00-5.30) L 10/20/18 04:53 Hgb 12.0 gm/dL (11.6-15.3) 10/20/18 04:53 Hct 37.0 % (35.0-46.0) 10/20/18 04:53 MCV 99.8 fL (80.0-100.0) 10/20/18 04:53 MCH 32.4 pg (27.0-34.0) 10/20/18 04:53 MCHC 32.5 % (32.0-36.0) 10/20/18 04:53 RDW 17.0 % (11.6-17.2) 10/20/18 04:53 Plt Count 204 th/mm3 (150-450) 10/20/18 04:53 MPV 8.6 fL (7.0-11.0) 10/20/18 04:53 Neut % (Auto) 90.7 % (16.0-70.0) H 10/20/18 04:53 Lymph % (Auto) 4.9 % (9.0-44.0) L 10/20/18 04:53 [place] % (Auto) 3.0 % (0.0-8.0) 10/20/18 04:53 Eos % (Auto) 0.0 % (0.0-4.0) 10/20/18 04:53 Baso % (Auto) 1.4 % (0.0-2.0) 10/20/18 04:53 Neut # (Auto) 8.2 th/mm3 (1.8-7.7) H 10/20/18 04:53 Lymph # (Auto) 0.4 th/mm3 (1.0-4.8) L 10/20/18 04:53 Carson # (Auto) 0.3 th/mm3 (0.0-0.9) 10/20/18 04:53 Eos # (Auto) 0.0 th/mm3 (0.0-0.4) 10/20/18 04:53 Baso # (Auto) 0.1 th/mm3 (0.0-0.2) 10/20/18 04:53 WBC Differential . 10/20/18 04:53 Differential Comment . 10/20/18 04:53 PT 13.0 sec (9.8-11.6) H 10/19/18 04:35 INR 1.3 Ratio 10/19/18 04:35 APTT 26.1 sec (23.4-31.7) 10/18/18 09:30 Puncture Site Right radial 10/20/18 04:30 Patient Temperature 98.6 10/20/18 04:30 O2 Saturation 88 % (90-100) L* 10/20/18 04:30 ABG pH 7.40 (7.380-7.420) 10/20/18 04:30 ABG pCO2 52 mmHg (38-42) H* 10/20/18 04:30 ABG pO2 57 mmHg (61-120) L* 10/20/18 04:30 ABG HCO3 32 mmol/L (22-26) H 10/20/18 04:30 ABG O2 Content 15.0 Vol % (12.0-20.0) 10/20/18 04:30 ABG Base Excess 6.7 mmol/L (-2-2) H 10/20/18 04:30 ABG Methemoglobin 0.6 % (0-2) 10/20/18 04:30 Josse Test Y 10/20/18 04:30 Hemoglobin 12.1 G/DL (12.0-16.0) 10/20/18 04:30 Carboxyhemoglobin 1.4 % (0-4) 10/20/18 04:30 O2 Delivery Device Ventilator 10/20/18 04:30 Liter Flow 3.00 L/M 10/18/18 10:00 Vent Setting Prvc/ac 10/20/18 04:30 Inspired O2 60 % 10/20/18 04:30 Critical Value Yes 10/20/18 04:30 Sodium 147 meq/L (136-145) H 10/20/18 04:53 Potassium 4.0 meq/L (3.5-5.1) 10/20/18 04:53 Chloride 109 meq/L (98-107) H 10/20/18 04:53 Carbon Dioxide 33.1 meq/L (21.0-32.0) H 10/20/18 04:53 Anion Gap 5 meq/L (5-15) 10/20/18 04:53 BUN 54 mg/dL (7-18) H 10/20/18 04:53 Creatinine 1.30 mg/dL (0.50-1.00) H 10/20/18 04:53 Estimated GFR 40 mL/min (>89) L 10/20/18 04:53 POC Glucose 193 mg/dl (68-110) 10/20/18 04:06 Random Glucose 186 mg/dL (74-106) H 10/20/18 04:53 Hemoglobin A1c 7.0 % (4.3-6.0) H 10/18/18 14:38 Lactic Acid 1.7 mmol/L (0.4-2.0) 10/19/18 04:35 Calcium 8.5 mg/dL (8.5-10.1) 10/20/18 04:53 Phosphorus 2.9 mg/dL (2.5-4.9) 10/20/18 04:53 Magnesium 1.9 mg/dL (1.5-2.5) 10/20/18 04:53 Total Bilirubin 0.7 mg/dL (0.2-1.0) 10/19/18 04:35 Direct Bilirubin 0.3 mg/dL (0.0-0.2) H 10/18/18 14:38 Indirect Bilirubin 0.4 mg/dL (0.0-0.8) 10/18/18 14:38 AST 27 U/L (15-37) 10/19/18 04:35 ALT 33 U/L (10-53) 10/19/18 04:35 Alkaline Phosphatase 113 U/L (45-117) 10/19/18 04:35 Ammonia 44 mcmol/L (11-32) H 10/18/18 14:38 Total Creatine Kinase 51 U/L (26-192) 10/18/18 14:38 Troponin I 0.03 ng/mL (0.02-0.05) 10/18/18 09:30 Total Protein 7.0 g/dL (6.4-8.2) 10/19/18 04:35 Albumin 2.6 g/dL (3.4-5.0) L 10/19/18 04:35 TSH 1.420 uIU/mL (0.358-3.740) 10/18/18 14:38 Thyroxine (T4) 10.7 mcg/dL (4.8-13.9) 10/18/18 14:38 Urine Color Yellow (Yellw/Straw) 10/18/18 13:57 Urine Clarity Clear (Clear) 10/18/18 13:57 Urine pH 6.0 (5.0-8.5) 10/18/18 13:57 Ur Specific [place] 1.020 (1.002-1.035) 10/18/18 13:57 Urine Protein Negative mg/dL (Neg-Trace) 10/18/18 13:57 Urine Glucose (UA) Negative mg/dL (Negative) 10/18/18 13:57 Urine Ketones Negative mg/dL (Negative) 10/18/18 13:57 Urine Occult Blood Negative (Negative) 10/18/18 13:57 Urine Nitrate Negative (Negative) 10/18/18 13:57 Urine Bilirubin Negative (Negative) 10/18/18 13:57 Urine Urobilinogen 0.2 mg/dL (Less than 2) 10/18/18 13:57 Ur Leukocyte Esterase Negative (Negative) 10/18/18 13:57 Urine RBC 0-3 /hpf (0-3) 10/18/18 13:57 Urine WBC 0-5 /hpf (0-5) 10/18/18 13:57 Ur Squamous Epith Cells 0-5 /hpf (0-5) 10/18/18 13:57 Hyaline Casts 0-3 /lpf (0-3) 10/18/18 13:57 Micro UA Comment Culture not ind 10/18/18 13:57 Ur Microscopic Review Microscopic reviewed 10/18/18 13:57 Urine Culture Comments Culture not ind 10/18/18 13:57 Nasal Screen MRSA (PCR) Not detected (Negative) 10/18/18 13:49 Random Vancomycin 11.9 Comment 10/19/18 04:35 Adenovirus (PCR) Not detected (Not Detect) 10/18/18 14:45 Bordetella holmesii PCR Not detected (Not Detect) 10/18/18 14:45 B. pertussis DNA (PCR) Not detected (Not Detect) 10/18/18 14:45 B. paraper/bronch (PCR) Not detected (Not Detect) 10/18/18 14:45 Human Metapneumovir PCR Not detected (Not Detect) 10/18/18 14:45 Influenza A (RT-PCR) Not detected (Not Detect) 10/18/18 14:45 Influenza A (H1) PCR Not detected (Not Detect) 10/18/18 14:45 Influenza A (H3) PCR Not detected (Not Detect) 10/18/18 14:45 Influenza B (RT-PCR) Not detected (Not Detect) 10/18/18 14:45 Parainfluenza 1 (PCR) Not detected (Not Detect) 10/18/18 14:45 Parainfluenza 2 (PCR) Not detected (Not Detect) 10/18/18 14:45 Parainfluenza 3 (PCR) Not detected (Not Detect) 10/18/18 14:45 Parainfluenza 4 (PCR) Not detected (Not Detect) 10/18/18 14:45 RSV Type A (PCR) Not detected (Not Detect) 10/18/18 14:45 RSV Type B (PCR) Not detected (Not Detect) 10/18/18 14:45 Rhinovirus (PCR) Not detected (Not Detect) 10/18/18 14:45 Impressions Abdomen X-Ray 10/18/18 00:00 CONCLUSION: Tip of the NG tube just past the GE junction. Venous Doppler Study 10/18/18 10:59 CONCLUSION: 1. The study is negative for bilateral lower extremity deep venous thrombosis. Head CT 10/18/18 14:32 CONCLUSION: 1. No acute intracranial abnormality. . Chest X-Ray 10/20/18 04:00 CONCLUSION: Slight improvement in aeration. Objective Remarks: GENERAL: This is a well-developed well-nourished morbidly obese female currently sedated and sedated SKIN: Warm and dry. Skin integrity intact HEAD: Atraumatic. Normocephalic. EYES: Pupils equal and round. EOMI. No scleral icterus. No injection or drainage. ENT: No nasal bleeding or discharge. Mucous membranes pink and moist. NECK: Trachea midline. No JVD. CARDIOVASCULAR: Irregular rate irregular rhythm. Atrial fibrillation RESPIRATORY: No accessory muscle use. Clear to auscultation. Breath sounds equal bilaterally. GASTROINTESTINAL: Abdomen soft, non-tender, obese nondistended. No guarding. MUSCULOSKELETAL: Extremities without clubbing, cyanosis, or edema. No obvious deformities. NEUROLOGICAL: RASS -1 No gross focal/sensory deficits. Follows commands in all 4 extremities. GCS 11T on sedation vacation Assessment and Plan - Problem List (1) Tobacco use disorder Code(s): F17.200 - Nicotine dependence, unspecified, uncomplicated Status: Acute - Assessment and Plan Plan: Plan by systems: Neurologic: Continue Versed and fentanyl infusions currently at 2 mg/hour and 100 mics/hour to maintain ventilator synchrony Daily sedation vacation Neurochecks per ICU protocol 10/19 CT head negative Respiratory: Acute hypercapnic respiratory failure Acute on chronic COPD exacerbation Tobacco use disorder Pneumonia Maintain O2 sat greater than 92% Ventilator bundle Currently patient is on FiO2 of 70% with a PEEP of 10, continue to wean as tolerated Reinitiate CPAP trials when clinically indicated and less FiO2 requirement Chest x-rayslight improvement in aeration ABG 7.40/52/57/32/6 0.7 on 60%, FIO2 and PEEP increased Duo nebs every 4 hours scheduled and every 2 hours as needed Plan for smoking cessation counseling post extubation Continue Solu-Medrol 40 every 8hrs Patient has home O2 dependency ranging 3-4 LPM, per report of family Pulmonology consulted Cardiovascular: Cardiomegaly Chronic atrial fibrillation H/O HTN H/O CABG Continue amiodarone 200 mg/day, aspirin 81 mg/day, metoprolol 25 mg twice daily (with parameters only), and Eliquis 5 mg twice daily Continue home dosing Lasix 40 mg twice daily Monitor QT interval-patient currently on azithromycin and home dose amiodarone F/U ECHO results Renal: SAMIRA Insert Branch strict I and O-being monitored currently on diuretics -- Strict I/Os FEN/GI: Obesity Protein calorie malnutrition Albumin 3.0 Maintain OGT to low intermittent wall suction Zofran for nausea Famotidine for GI prophylaxis Hold atorvastatin F/U lipid panel Heme/ID: Pneumonia 10/19 blood, urine, sputum cultures- NGTD influenza A/B- Neg strep pneumo antigen 10/18 respiratory panel- NGTD Monitor CBC Initiate empiric antibiotics cefepime, azithromycin, and vancomycin(day 3) Endocrine: Hyperglycemia of critical illness Glucose monitoring per ICU protocol, increased to high-dose regimen Hemoglobin A1c 7.0 on admission -- SSI Prophylaxis: GI Prophylaxis Famotidine DVT Prophylaxis -- SCDs Patient on Eliquis 5 mg twice daily Lines: Of IVs x2. Central line if indicated Level 3 followup Code Status: full Discussed Condition With: Eula Darya, patient's daughter [phone]. Provided medical status update. All questions answered
[2018-10-20] MEDS: Amiodarone 200 MG Tablet PO SCH (08:42)
[2018-10-20] MEDS: Famotidine 20 MG Tablet PO SCH ×2 (08:42→20:57)
[2018-10-20] MEDS: Senna/Docusate Sodium 8.6/50 MG Tablet PO SCH ×2 (08:42→20:56)
[2018-10-20] MEDS: Famotidine PF Inj 20 MG/2 ML Vial IV.PUSH SCH ×2 (08:43→20:56)
[2018-10-20] MEDS: Chlorhexidine 0.12% Oral Kit 15 ML UDC OROPHARYNG SCH ×2 (08:45→20:56)
[2018-10-20 10:09] LABS: Chol/HDL Ratio 2.29 Ratio; HDL Cholesterol 37.9 mg/dL (40.0-60.0)
--- NOTE | 2018-10-20 10:12 | P.DIET ---
Nutritional Evaluation Type of nutrition evaluation: initial Nutrition consult regarding: Tube Feeding (New TF) Nutrition screening: MDC Subjective Subjective Comments: Assessment based on SCCM and ASPEN guidelines for the critically ill obese Objective - Diagnosis Hypercapnic respiratory failure - Objective Body Mass Index: 43.5 [place] body weight: 54 kg (120lb) % IBW: 212 Body Weight Used for Calculations: Actual Energy Needs - Lower Range (kCal/kg): 11 Energy Needs - Upper Range (kCal/kg): 14 Lower Limit kCal/kg (kCals): 1,265 Upper Limit kCal/kg (kCals): 1,610 Lower Limit Protein Factor (Grams per Kg): 2.0 (g/kg IBW) Upper Limit Protein Factor (Grams per Kg): 2.5 (g/kg IBW) Lower Protein Needs (Protein): 108 Upper Protein Needs (Protein): 135 Dietitian Reviewed in Medical Record: Curent medications, Intake & Output, Labs , Medical history, Tube feeding Diet Order: TF Objective Comments: PMH; COPD, Afib, morbid obesity, tobacco use disorder Labs; Na 147, BUN 54, Cr 1.3, GFR 40, Glucose 186, POC 193 Medications; lasix, insulin, solumedrol, versed Assessment Assessment: New TF; Pt presents to [facility] with increased lethargy and found to be in respiratory failure and emergently intubated. Pt is currently at nutritional risk related to clinical course and need for TF. Current TF order is Glucerna 1.5 running at 55ml/hour. Will recommend new TF order of Glucerna 1.5 running at 40ml/hour plus 2 packets Beneprotein BID to provide 1520kcal, 103g protein and 729 ml free water to best meet pt's assessed nutritional needs. Current TF order is over feeding pt at this time which can increase difficulty weaning from ventilator. Labs and medications reviewed, noted pt on solumedrol which will cause blood sugars to run high. Will continue to monitor blood glucose and TF tolerance. Recommendations: 1. TF recs; Glucerna 1.5 running running at 40ml/hour plus 2 packets beneprotein BID 2. Monitor blood glucose and tolerance to TF Dietitian to Monitor: Lab values, Glucose level, Tube feeding tolerance, Medical course
[2018-10-20 12:03] LABS: ABG Base Excess 8.2 mmol/L (-2-2); ABG PCO2 49 mmHg (38-42); ABG PO2 64 mmHg (61-120)
--- NOTE | 2018-10-20 15:58 | MB ---
cc: Jackie Christopher MD DATE: 10/20/2018 PULMONARY CONSULTATION HISTORY OF PRESENT ILLNESS: The patient is a 68-year-old female with a past medical history of COPD, GERD, atrial fibrillation, hypertension, who presented to [facility] ED with altered mental status and acute hypercapnic respiratory failure requiring intubation and mechanical ventilation. The patient had a chest x-ray on admission, which showed mild right basilar consolidation and mild left base atelectasis. She had several chest x-rays since then and last chest x-ray from today showed no significant changes. Doppler ultrasound of lower extremity negative for DVT. The patient also had a CT brain, which showed no acute intracranial abnormalities. She is currently sedated with Versed and fentanyl and on full mechanical ventilation; PRVC mode with a PEEP of 10 and FiO2 80%. ABG from this afternoon showed a pH of 7.44, CO2 49, pO2 of 64, bicarbonate of 33, saturation 92% on PEEP of 10 and 80% FiO2. The patient was placed on bronchodilators, antibiotics, and steroids. Her sputum culture from 10/18/2018 showed normal respiratory dylan and strep pneumonia legionella urinary antigen, influenza screening all negative. Blood culture from 10/18/2018 also showed no growth to date. PAST MEDICAL HISTORY: Significant for atrial fibrillation, COPD, GERD, hypertension. ALLERGIES: CIPRO AND FLAGYL. SOCIAL HISTORY: Smoker, nondrinker. FAMILY HISTORY: Noncontributory to present illness. ACTIVE MEDICATIONS: Include: 1. Amiodarone. 2. DuoNeb. 3. Aspirin. 4. Zithromax. 5. Cefepime. 6. Pepcid. 7. Fentanyl. 8. Versed 9. Lasix. 10. Vancomycin. REVIEW OF SYSTEMS: As per HPI. The rest of review of systems unobtainable as the patient is intubated. PHYSICAL EXAMINATION: GENERAL: A 68-year-old female; intubated and on full mechanical ventilation. VITAL SIGNS: Temperature of 97.7, pulse of 102, respiratory rate of 18, blood pressure 90/49, saturation 92%. HEENT: Atraumatic, normocephalic. Pupils are equal, round, reactive to light and accommodation. Extraocular muscles intact. Conjunctivae pink. Anicteric sclerae. Oral mucosa within normal. NECK: Supple. No JVD, adenopathy or thyromegaly. Trachea in the midline. CARDIOVASCULAR: Regular rate and rhythm. Normal S1, S2. No murmurs, rubs or gallops noted. PULMONARY: Bilateral air entry. No rales or wheezing. ABDOMEN: Soft, obese, nontender. No distention. Positive bowel sounds. EXTREMITIES: No cyanosis or clubbing. Trace edema. NEUROLOGIC: Intubated and sedated. LABORATORY DATA: WBC 9, hemoglobin 12, hematocrit 37, platelet count 204. Sodium 147, potassium 4, chloride 109, CO2 of 33, BUN 54, creatinine 1.30. RADIOGRAPHIC STUDIES: 1. A CT brain, no acute intracranial abnormalities. 2. Doppler ultrasound of lower extremity, no evidence of DVT. 3. Chest x-ray, bibasilar pleural parenchymal opacity. 4. Echocardiogram showed an EF of 40%-45%, moderate pulmonary hypertension with a PA pressure of 54 mmHg. IMPRESSION: 1. Acute hypoxemic and hypercapnic respiratory failure. 2. Chronic obstructive pulmonary disease. 3. Hypertension. 4. Chronic atrial fibrillation. 5. Obesity. 6. Gastroesophageal reflux disease. 7. Mild left ventricular dysfunction with ejection fraction 40%-45%. RECOMMENDATIONS: 1. Continue with vent support and maintain sats above 92%. 2. Bronchodilators in the form of DuoNeb every 4 hours plus every 2 hours p.r.n. for shortness of breath. 3. Agree with IV steroids. She is on Solu-Medrol 40 mg IV every 8 hours. 4. Continue with PRVC mode, respiratory rate of 18, tidal volume 500, increase PEEP to 12 and decrease FiO2 as tolerated. 5. We will proceed with CT angiogram of the chest to rule out a pulmonary embolism. Doppler ultrasound of lower extremity was negative for DVT. 6. The patient had echocardiogram on 10/19/2018, which showed moderately decreased RV systolic function with EF of 40%-45% and moderate pulmonary hypertension with a PA pressure of 54 mmHg. 7. Continue with empiric antibiotics. She is on cefepime and azithromycin. Monitor for signs of infection, which include fever and WBC. 8. Gastrointestinal and deep venous thrombosis prophylaxis. The patient is on Pepcid and Eliquis respectively. Further recommendations will be based on hospital course. Thank you for this consultation and allowing us to participate in this patient's care. MD Winifred Hernandez , 03:24 PM , 03:35 PM
--- NOTE | 2018-10-20 16:16 | CT ---
EXAM DATE: 10/20/2018 4:10 PM EST AGE/SEX: 68 years / Female INDICATIONS: Hypercapnic respiratory failure. CLINICAL DATA: This is the patient's initial encounter. Patient reports that signs and symptoms have been present for 1 day and indicates a pain score of 0/10. MEDICAL/SURGICAL HISTORY: Chronic obstructive pulmonary disease. Gastroesophageal reflux disease. Hypertension. Atrial fibrillation. None. RADIATION DOSE: 17.29 CTDI (mGy) COMPARISON: [facility], CHEST 1V SINGLE AP, 10/20/2018. . TECHNIQUE: Volumetric scanning was performed using a multi-row detector CT scanner during bolus infu aileen of 50 ml Visipaque 320 (iodixanol) nonionic water-soluble contrast as a single exam dose. The d elian was post processed with a variety of visualization algorithms including full volume maximum inten sity projection and sliding thin slab reformation. Using automated exposure control and adjustment of the mA and/or kV according to patient size, radiation dose was kept as low as reasonably achievable to obtain optimal diagnostic quality images. DICOM format image data is available electronically for review and comparison. FINDINGS: Pulmonary Arteries: No filling defects are seen in the pulmonary arteries out to the subsegmental ve ssels. The left and right pulmonary arteries are normal in diameter. Lung: There is consolidation and volume fine loss involving both lower lobes, right greater than lef t. The upper lungs remain clear. 9 mm calcified granuloma in the lateral upper left lung. Effusion: Moderate size right pleural effusion and small left pleural effusion. Mediastinum: No evidence of mediastinal or hilar adenopathy. Other: ET tube well above the prince. Gastric tube traverses into the stomach. Evidence of prior med arianna sternotomy. CONCLUSION: 1. The study is negative for pulmonary embolism. 2. Bilateral lower lung consolidation and pleural effusions, right greater than left. Electronically signed by: Rj Mcneill MD Board Certified Radiologist 10/20/2018 4:14 PM EST
[2018-10-20] MEDS ORDERED: Magnesium Sulfate Inj 2 GM in Sodium Chlor 0.9% Inj 96 ML IV.SIG PRN (17:14)
[2018-10-20] MEDS ORDERED: Magnesium Sulfate Inj 4 GM in Sodium Chlor 0.9% Inj 92 ML IV.SIG PRN (17:14)
[2018-10-20] MEDS ORDERED: Potassium Chlor 40 mEq Premix 40 MEQ/100 ML PIGGYBACK IV.SIG PRN ×2 (17:14)
[2018-10-20] MEDS ORDERED: Sodium Phosphate Inj 30 MMOL in Sodium Chlor 0.9% Inj 250 ML IV.SIG PRN (17:14)
[2018-10-20] MEDS ORDERED: Potassium Chlor 20 mEq Premix 20 MEQ/100 ML PIGGYBACK IV.SIG PRN ×2 (17:14)
[2018-10-20] MEDS ORDERED: Magnesium Oxide 400 MG Tablet PO PRN (17:14)
[2018-10-20] MEDS ORDERED: Potassium Phosphate Inj 30 MMOL in Sodium Chlor 0.9% Inj 250 ML IV.SIG PRN (17:14)
[2018-10-20] MEDS ORDERED: Potassium Phosphate 500 MG Soluble Tablet PO PRN ×2 (17:14)
[2018-10-20] MEDS ORDERED: Potassium Chloride Liq 20 MEQ/15 ML UDC PO PRN ×2 (17:14)
[2018-10-20] MEDS: Azithromycin Inj 500 MG in Sodium Chlor 0.9% Inj 250 ML IV.SIG SCH (17:44)
[2018-10-20] MEDS: Metoprolol Tartrate 25 MG Tablet PO SCH (20:56)
[2018-10-20] MEDS: Vancomycin Inj 1,250 MG in Sodium Chlor 0.9% Inj 250 ML IV.SIG SCH (21:50)
[2018-10-21] MEDS: Insulin NovoLOG Aspart Correctional Sugar Inj SQ SCH ×5 (00:26→23:43)
[2018-10-21] MEDS: Oral Hygiene Kit OROPHARYNG SCH ×5 (00:26→23:37)
[2018-10-21] MEDS: Chlorhexidine Gluconate 2% 1 Pack (2 Cloths) TOPICAL SCH (04:01)
[2018-10-21 04:15] LABS: Baso % (Auto) 0.1 % (0.0-2.0); Hematocrit 38.7 % (35.0-46.0); Hemoglobin 12.9 gm/dL (11.6-15.3); Lymph # (Auto) 0.4 th/mm3 (1.0-4.8); Lymph % (Auto) 3.7 % (9.0-44.0); Mean Corpuscular HGB Conc 33.4 % (32.0-36.0); Mean Corpuscular Hemoglobin 33.4 pg (27.0-34.0); Mean Corpuscular Volume 100.2 fL (80.0-100.0); Mean Platelet Volume 8.4 fL (7.0-11.0); Mono # (Auto) 0.4 th/mm3 (0.0-0.9); Mono % (Auto) 3.8 % (0.0-8.0); Neut # (Auto) 9.6 th/mm3 (1.8-7.7); Neut % (Auto) 92.4 % (16.0-70.0); Platelet Count 224 th/mm3 (150-450); Red Blood Count 3.86 mil/mm3 (4.00-5.30); Red Cell Distribution Width 17.5 % (11.6-17.2); White Blood Count 10.4 th/mm3 (4.0-11.0)
[2018-10-21 04:36] LABS: Calcium 8.6 mg/dL (8.5-10.1); Phosphorus 2.6 mg/dL (2.5-4.9); Potassium 3.7 meq/L (3.5-5.1)
[2018-10-21] MEDS ORDERED: Sod Chloride 0.9% Inj 1,000 ML IV.SIG SCH (04:45)
--- NOTE | 2018-10-21 05:32 | XR ---
EXAM DATE: 10/21/2018 5:29 AM EST AGE/SEX: 68 years / Female INDICATIONS: Shortness of breath. CLINICAL DATA: This is the patient's subsequent encounter. Patient reports that signs and symptoms h ave been present for 4 - 6 days and indicates a pain score of Nonresponsive. MEDICAL/SURGICAL HISTORY: . Chronic obstructive pulmonary disease. Gastroesophageal reflux dise ase. Hypertension. Atrial fibrillation. None. COMPARISON: . FINDINGS: Endotracheal tube is present with tip several centimeters above the prince. Nasogastric tube descends into the stomach. Hazy bibasilar pleural-parenchymal opacity increased from prior examination. Cardi ac contours grossly unchanged. CONCLUSION: Slight interval worsening in aeration. Electronically signed by: Satya Garcia MD Board Certified Radiologist 10/21/2018 5:31 AM EST
[2018-10-21] MEDS: MethylPREDNISolone Sod Succinate Inj 40 MG/ML Vial IV.PUSH SCH ×3 (05:59→21:36)
[2018-10-21 06:19] LABS: ABG Base Excess 8.1 mmol/L (-2-2); ABG PCO2 46 mmHg (38-42); ABG PO2 130 mmHG (61-120)
[2018-10-21] MEDS: Senna/Docusate Sodium 8.6/50 MG Tablet PO SCH ×2 (09:30→20:39)
[2018-10-21] MEDS: Chlorhexidine 0.12% Oral Kit 15 ML UDC OROPHARYNG SCH ×2 (09:30→20:46)
[2018-10-21] MEDS: Famotidine PF Inj 20 MG/2 ML Vial IV.PUSH SCH ×2 (09:31→20:40)
[2018-10-21] MEDS: Amiodarone 200 MG Tablet PO SCH (09:31)
[2018-10-21] MEDS: Metoprolol Tartrate 25 MG Tablet PO SCH ×3 (09:32→23:36)
[2018-10-21] MEDS: Famotidine 20 MG Tablet PO SCH ×2 (09:32→20:39)
--- NOTE | 2018-10-21 09:35 | US ---
EXAM DATE: 10/21/2018 9:24 AM EST AGE/SEX: 68 years / Female INDICATIONS: Left pleural effusion. CLINICAL DATA: This is the patient's subsequent encounter. Patient reports that signs and symptoms h ave been present for 1 day and indicates a pain score of Nonresponsive. MEDICAL/SURGICAL HISTORY: . Chronic obstructive pulmonary disease. Gastroesophageal reflux dise ase. Hypertension. Atrial fibrillation. None. COMPARISON: [facility], [facility] PULMONARY W CONTRAST W 3D, 10/20/2018. . MEASUREMENTS: Skin To Parietal Pleura:__Inadequate fluid cm Skin To Max Safe Depth:__Inadequate fluid cm Estimated Fluid Volume:__59 cc Fluid Composition:__simple FINDINGS: No significant left pleural effusion CONCLUSION: 1. Electronically signed by: Baldemar Bukc MD Board Certified Radiologist 10/21/2018 9:33 AM EST
--- NOTE | 2018-10-21 09:35 | US ---
EXAM DATE: 10/21/2018 9:25 AM EST AGE/SEX: 68 years / Female INDICATIONS: Right pleural effusion. CLINICAL DATA: This is the patient's subsequent encounter. Patient reports that signs and symptoms h ave been present for 2 days and indicates a pain score of Nonresponsive. MEDICAL/SURGICAL HISTORY: . Chronic obstructive pulmonary disease. Gastroesophageal reflux dise ase. Hypertension. Atrial fibrillation. None. [place] [facility] [place] . MEASUREMENTS: Skin To Parietal Pleura:__Inadequate fluid cm Skin To Max Safe Depth:__Inadequate fluid cm Estimated Fluid Volume:__125 cc Fluid Composition:__simple FINDINGS: Trace pleural effusion on the right. CONCLUSION: 1. Trace pleural effusion on the right. Electronically signed by: Baldemar Buck MD Board Certified Radiologist 10/21/2018 9:34 AM EST
--- NOTE | 2018-10-21 09:44 | P.PNPL ---
Subjective Interval history: Patient remains sedated with Versed and Fentanyl infusion. Afebrile. Placed on Biphasic mode overnight FIO2 weaned down 60% this morning. CTA chest showed no PE, bibasilar consolidation with small effusion. Physical Exam Vital signs: Vital Signs 10/20/18 10:00 10/20/18 10:04 10/20/18 10:34 Temperature Pulse Rate 91 H 98 H 92 H Respiratory Rate 23 18 17 Blood Pressure 109/53 L 108/58 L 109/53 L Pulse Oximetry 91 L 91 L 91 L 10/20/18 11:04 10/20/18 11:05 10/20/18 11:14 Temperature Pulse Rate 94 H 94 H 98 H Respiratory Rate 18 18 18 Blood Pressure 99/51 L 93/58 L Pulse Oximetry 90 L 91 L 91 L 10/20/18 11:34 10/20/18 12:00 10/20/18 12:04 Temperature Pulse Rate 100 H 106 H 96 H Respiratory Rate 17 18 Blood Pressure 95/48 L 106/65 Pulse Oximetry 92 L 92 L 10/20/18 12:34 10/20/18 13:00 10/20/18 13:04 Temperature Pulse Rate 102 H 96 H 98 H Respiratory Rate 18 17 18 Blood Pressure 93/49 L 98/65 L 103/61 Pulse Oximetry 92 L 93 L 93 L 10/20/18 13:34 10/20/18 13:44 10/20/18 14:00 Temperature Pulse Rate 100 H 102 H 90 Respiratory Rate 18 18 Blood Pressure 74/48 L 79/57 L Pulse Oximetry 93 L 91 L 10/20/18 14:04 10/20/18 14:16 10/20/18 14:34 Temperature Pulse Rate 102 H 96 H Respiratory Rate 18 18 18 Blood Pressure 90/49 L 100/50 L Pulse Oximetry 91 L 92 L 91 L 10/20/18 15:04 10/20/18 15:17 10/20/18 16:00 Temperature 98.9 F Pulse Rate 98 H 104 H 89 Respiratory Rate 18 18 Blood Pressure 106/53 L Pulse Oximetry 92 L 10/20/18 17:37 10/20/18 18:00 10/20/18 18:01 Temperature 97.6 F Pulse Rate 99 H 103 H Respiratory Rate 18 18 19 Blood Pressure 109/67 Pulse Oximetry 93 L 90 L 96 10/20/18 19:00 10/20/18 19:42 10/20/18 20:00 Temperature Pulse Rate 99 H 104 H 99 H Respiratory Rate 23 18 18 Blood Pressure 124/71 121/72 124/70 Pulse Oximetry 95 94 L 94 L 10/20/18 20:04 10/20/18 21:00 10/20/18 22:00 Temperature Pulse Rate 100 H 104 H 99 H Respiratory Rate 18 18 18 Blood Pressure 97/73 L 122/77 Pulse Oximetry 94 L 93 L 94 L 10/20/18 23:00 10/20/18 23:54 10/20/18 23:55 Temperature Pulse Rate 91 H 104 H Respiratory Rate 18 18 18 Blood Pressure 139/61 Pulse Oximetry 93 L 92 L 10/21/18 00:00 10/21/18 01:00 10/21/18 02:00 Temperature Pulse Rate 107 H 101 H 100 H Respiratory Rate 18 18 18 Blood Pressure 124/60 119/64 114/60 Pulse Oximetry 92 L 92 L 91 L 10/21/18 03:00 10/21/18 03:49 10/21/18 04:00 Temperature Pulse Rate 114 H 105 H 124 H Respiratory Rate 18 18 18 Blood Pressure 128/68 Pulse Oximetry 91 L 89 L 10/21/18 04:01 10/21/18 04:14 10/21/18 04:36 Temperature Pulse Rate 110 H 114 H 131 H Respiratory Rate 18 18 19 Blood Pressure 94/53 L 96/53 L 101/56 L Pulse Oximetry 90 L 90 L 92 L 10/21/18 04:50 10/21/18 05:00 10/21/18 05:14 Temperature Pulse Rate 124 H 120 H Respiratory Rate 18 18 18 Blood Pressure 89/56 L 93/50 L Pulse Oximetry 90 L 90 L 90 L 10/21/18 05:44 10/21/18 05:45 10/21/18 06:00 Temperature Pulse Rate 120 H 113 H Respiratory Rate Blood Pressure 110/61 111/57 L Pulse Oximetry 96 94 L 100 10/21/18 07:32 10/21/18 07:40 Temperature Pulse Rate 125 H Respiratory Rate 10 L Blood Pressure Pulse Oximetry 100 Intake & Output 10/20/18 10/21/18 10/21/18 18:59 06:59 18:59 Intake Total 200 / 200 862.5 / 862.5 100 / 100 Output Total 1425 / 1425 1600 / 1600 Balance -1225 / -1225 -737.5 / -737.5 100 / 100 Weight 114 kg Intake: IV 200 / 200 862.5 / 862.5 100 / 100 Versed Inj 100 mg In 100 ml @ 2 100 / 100 MG/HR 2 mls/hr IV.CONT TITRATE PRN Rx#:[id number] NS Inj 1,000 ML @ 84 mls/hr IV. 0 / 0 CONT .[id number] MERE Rx#: [id number] Azithromycin Inj 500 MG In NS 250 / 250 Inj 250 ML @ 250 mls/hr IV.SIG Q24H MERE Rx#:[id number] Maxipime Inj 1,000 MG In NS Inj 100 / 100 100 / 100 100 / 100 100 ML @ 200 mls/hr IV.SIG Q8H MERE Rx#:[id number] Vancomycin Inj 1,250 MG In NS 262.5 / 262.5 Inj 250 ML @ 250 mls/hr IV.SIG Q24H MERE Rx#:[id number] fentaNYL 10 mcg/mL Premix Drip 250 / 250 2,500 mcg In 250 ml @ 50 MCG/HR 5 mls/hr IV.SIG TITRATE PRN Rx #:[id number] Output: Urine 1200 / 1200 Urine Amount (Catheter) 225 / 225 1600 / 1600 Indwelling Urethral Catheter 225 / 225 1600 / 1600 - Constitutional no acute distress, morbidly obese - Routine HEENT Exam Head: Present: normocephalic, atraumatic Eye: Present: EOMI, PERRL, normal accommodation, conjunctivae pink ENT: Present: mucous membranes moist - Routine Neck Exam Present: supple, full ROM, trachea midline - Routine Respiratory Exam Present: patient mechanically ventilated, CTA bilaterally - Routine Cardiovascular Exam Present: RRR, S1, S2, tachycardia - Routine Abdominal Exam Present: soft, normoactive bowel sounds - Routine Extremities Exam Present: pulses intact - Routine Skin Exam Present: intact, dry - Routine Neurological Exam Present: altered mental status - Routine Psychiatric Exam Present: unable to assess - Urinary Catheter Management Indwelling Urethral Catheter Cath placed during this visit: yes Reason for continuing: Hourly intake/output Insertion date: 10/18/18 Assessment and Plan - Assessment (1) Tobacco use disorder Code(s): F17.200 - Nicotine dependence, unspecified, uncomplicated Status: Acute - Plan 1. Acute hypoxemic and hypercapnic respiratory failure. 2. Chronic obstructive pulmonary disease. 3. Hypertension. 4. Chronic atrial fibrillation. 5. Obesity. 6. Gastroesophageal reflux disease. 7. Mild left ventricular dysfunction with ejection fraction 40%-45%. Plan On Versed and Fentanyl infusion for sedation. Daily sedation vacation when appropriate. Continue with vent support and maintain sats above 92%. Bronchodilators. Solu-Medrol 40 mg IV every 8 hours. CTA chest 10/20: No PE< bibasilar consolidation with small pleural effusion. Doppler US LE negative for DVT. Echo: 10/19 :moderately decreased RV systolic function with EF of 40%-45% and moderate pulmonary hypertension with a PA pressure of 54 mmHg. Abx- on cefepime and azithromycin. Monitor for signs of infection, Sputum cx: normal resp dylan, strep pneumonia legionella urinary Ag, Influenza screening, BC all negative GI/DVT prophylaxis. on Pepcid and Eliquis respectively. Continue treatment plan.
[2018-10-21] MEDS: Midazolam 100 MG/100 ML Inj 100 MG/100 ML BAG IV.CONT PRN ×2 (10:31→23:32)
--- NOTE | 2018-10-21 10:38 | P.PNCC ---
Subjective Subjective Remarks/Hospital Course: 10/19: FiO2 requirements decreased to 50%. CPAP trials initiated early this a.m.. ETT retracted 2cm, due to chest x-ray results ,to 21cm. On daily sedation vacation GCS 11 T. She has periods of agitation she remains on low- dose Versed at 1 mg fentanyl at 100 mics currently on CPAP trials. 10/20: Afebrile .GCS 11 T off sedation. Methylprednisolone initiated yesterday chest x-ray revealing slight improvement in irrigation today. Pulmonology consult pending appreciate recommendations . Patient normally utilizes home O2 3-4 L via nasal cannula . IV fluids discontinued last night noted rales in lung bases. Tube feeds to be initiated today. The patient continues on empiric antibiotics, influenza A/B pending. FiO2 requirements increased last night to 70% with noted ABG PaO2 of 57. Patient failed CPAP trials yesterday. 10/21: The patient's respiratory status continued to deteriorate. The patient was transferred to [facility], FIO2 75%. Overnight the patient ventilator management changed to Biphasic mode.Repeat ABG pending this afternoon. Tube feeds reinitiated. CTA noted no PE, US chest showed minimal pleural effusions. Eliquis restarted. Objective Vital Signs / I&O: Vital Signs 10/20/18 10:34 10/20/18 11:04 10/20/18 11:05 Temperature Pulse Rate 92 H 94 H 94 H Respiratory Rate 17 18 18 Blood Pressure 109/53 L 99/51 L Pulse Oximetry 91 L 90 L 91 L 10/20/18 11:14 10/20/18 11:34 10/20/18 12:00 Temperature Pulse Rate 98 H 100 H 106 H Respiratory Rate 18 17 Blood Pressure 93/58 L 95/48 L Pulse Oximetry 91 L 92 L 10/20/18 12:04 10/20/18 12:34 10/20/18 13:00 Temperature Pulse Rate 96 H 102 H 96 H Respiratory Rate 18 18 17 Blood Pressure 106/65 93/49 L 98/65 L Pulse Oximetry 92 L 92 L 93 L 10/20/18 13:04 10/20/18 13:34 10/20/18 13:44 Temperature Pulse Rate 98 H 100 H 102 H Respiratory Rate 18 18 18 Blood Pressure 103/61 74/48 L 79/57 L Pulse Oximetry 93 L 93 L 91 L 10/20/18 14:00 10/20/18 14:04 10/20/18 14:16 Temperature Pulse Rate 90 102 H Respiratory Rate 18 18 Blood Pressure 90/49 L Pulse Oximetry 91 L 92 L 10/20/18 14:34 10/20/18 15:04 10/20/18 15:17 Temperature 98.9 F Pulse Rate 96 H 98 H 104 H Respiratory Rate 18 18 18 Blood Pressure 100/50 L 106/53 L Pulse Oximetry 91 L 92 L 10/20/18 16:00 10/20/18 17:37 10/20/18 18:00 Temperature 97.6 F Pulse Rate 89 99 H Respiratory Rate 18 18 Blood Pressure Pulse Oximetry 93 L 90 L 10/20/18 18:01 10/20/18 19:00 10/20/18 19:42 Temperature Pulse Rate 103 H 99 H 104 H Respiratory Rate 19 23 18 Blood Pressure 109/67 124/71 121/72 Pulse Oximetry 96 95 94 L 10/20/18 20:00 10/20/18 20:04 10/20/18 21:00 Temperature Pulse Rate 99 H 100 H 104 H Respiratory Rate 18 18 18 Blood Pressure 124/70 97/73 L Pulse Oximetry 94 L 94 L 93 L 10/20/18 22:00 10/20/18 23:00 10/20/18 23:54 Temperature Pulse Rate 99 H 91 H 104 H Respiratory Rate 18 18 18 Blood Pressure 122/77 139/61 Pulse Oximetry 94 L 93 L 10/20/18 23:55 10/21/18 00:00 10/21/18 01:00 Temperature Pulse Rate 107 H 101 H Respiratory Rate 18 18 18 Blood Pressure 124/60 119/64 Pulse Oximetry 92 L 92 L 92 L 10/21/18 02:00 10/21/18 03:00 10/21/18 03:49 Temperature Pulse Rate 100 H 114 H 105 H Respiratory Rate 18 18 18 Blood Pressure 114/60 128/68 Pulse Oximetry 91 L 91 L 10/21/18 04:00 10/21/18 04:01 10/21/18 04:14 Temperature Pulse Rate 124 H 110 H 114 H Respiratory Rate 18 18 18 Blood Pressure 94/53 L 96/53 L Pulse Oximetry 89 L 90 L 90 L 10/21/18 04:36 10/21/18 04:50 10/21/18 05:00 Temperature Pulse Rate 131 H 124 H Respiratory Rate 19 18 18 Blood Pressure 101/56 L 89/56 L Pulse Oximetry 92 L 90 L 90 L 10/21/18 05:14 10/21/18 05:44 10/21/18 05:45 Temperature Pulse Rate 120 H 120 H Respiratory Rate 18 Blood Pressure 93/50 L 110/61 Pulse Oximetry 90 L 96 94 L 10/21/18 06:00 10/21/18 07:32 10/21/18 07:40 Temperature Pulse Rate 113 H 125 H Respiratory Rate 10 L Blood Pressure 111/57 L Pulse Oximetry 100 100 Intake & Output 10/20/18 10/21/18 10/21/18 18:59 06:59 18:59 Intake Total 200 / 200 862.5 / 862.5 100 / 100 Output Total 1425 / 1425 1600 / 1600 Balance -1225 / -1225 -737.5 / -737.5 100 / 100 Weight 114 kg Intake: IV 200 / 200 862.5 / 862.5 100 / 100 Versed Inj 100 mg In 100 ml @ 2 100 / 100 MG/HR 2 mls/hr IV.CONT TITRATE PRN Rx#:[id number] NS Inj 1,000 ML @ 84 mls/hr IV. 0 / 0 CONT .[id number] MERE Rx#: [id number] Azithromycin Inj 500 MG In NS 250 / 250 Inj 250 ML @ 250 mls/hr IV.SIG Q24H MERE Rx#:[id number] Maxipime Inj 1,000 MG In NS Inj 100 / 100 100 / 100 100 / 100 100 ML @ 200 mls/hr IV.SIG Q8H MERE Rx#:[id number] Vancomycin Inj 1,250 MG In NS 262.5 / 262.5 Inj 250 ML @ 250 mls/hr IV.SIG Q24H MERE Rx#:[id number] fentaNYL 10 mcg/mL Premix Drip 250 / 250 2,500 mcg In 250 ml @ 50 MCG/HR 5 mls/hr IV.SIG TITRATE PRN Rx #:[id number] Output: Urine 1200 / 1200 Urine Amount (Catheter) 225 / 225 1600 / 1600 Indwelling Urethral Catheter 225 / 225 1600 / 1600 Result Diagrams: 10/21/18 03:23 10/21/18 03:23 Other Results: Laboratory Results CBC w Diff Auto diff final 10/20/18 04:53 WBC 10.4 th/mm3 (4.0-11.0) 10/21/18 03:23 RBC 3.86 mil/mm3 (4.00-5.30) L 10/21/18 03:23 Hgb 12.9 gm/dL (11.6-15.3) 10/21/18 03:23 Hct 38.7 % (35.0-46.0) 10/21/18 03:23 MCV 100.2 fL (80.0-100.0) H 10/21/18 03:23 MCH 33.4 pg (27.0-34.0) 10/21/18 03:23 MCHC 33.4 % (32.0-36.0) 10/21/18 03:23 RDW 17.5 % (11.6-17.2) H 10/21/18 03:23 Plt Count 224 th/mm3 (150-450) 10/21/18 03:23 MPV 8.4 fL (7.0-11.0) 10/21/18 03:23 Neut % (Auto) 92.4 % (16.0-70.0) H 10/21/18 03:23 Lymph % (Auto) 3.7 % (9.0-44.0) L 10/21/18 03:23 Mckean % (Auto) 3.8 % (0.0-8.0) 10/21/18 03:23 Eos % (Auto) 0.0 % (0.0-4.0) 10/21/18 03:23 Baso % (Auto) 0.1 % (0.0-2.0) 10/21/18 03:23 Neut # (Auto) 9.6 th/mm3 (1.8-7.7) H 10/21/18 03:23 Lymph # (Auto) 0.4 th/mm3 (1.0-4.8) L 10/21/18 03:23 Mckean # (Auto) 0.4 th/mm3 (0.0-0.9) 10/21/18 03:23 Eos # (Auto) 0.0 th/mm3 (0.0-0.4) 10/21/18 03:23 Baso # (Auto) 0.0 th/mm3 (0.0-0.2) 10/21/18 03:23 WBC Differential . 10/21/18 03:23 Differential Comment Auto diff final 10/21/18 03:23 PT 13.0 sec (9.8-11.6) H 10/19/18 04:35 INR 1.3 Ratio 10/19/18 04:35 APTT 26.1 sec (23.4-31.7) 10/18/18 09:30 Puncture Site Left radial 10/21/18 05:49 Patient Temperature 98.6 10/21/18 05:49 O2 Saturation 97 % (90-100) 10/21/18 05:49 ABG pH 7.46 (7.380-7.420) H 10/21/18 05:49 ABG pCO2 46 mmHg (38-42) H 10/21/18 05:49 ABG pO2 130 mmHG (61-120) H 10/21/18 05:49 ABG HCO3 32 mmol/L (22-26) H 10/21/18 05:49 ABG O2 Content 17.4 Vol % (12.0-20.0) 10/21/18 05:49 ABG Base Excess 8.1 mmol/L (-2-2) H 10/21/18 05:49 ABG Methemoglobin 1.4 % (0-2) 10/21/18 05:49 Josse Test Present 10/21/18 05:49 Hemoglobin 12.7 G/DL (12.0-16.0) 10/21/18 05:49 Carboxyhemoglobin 0.8 % (0-4) 10/21/18 05:49 O2 Delivery Device Ventilator 10/21/18 05:49 Liter Flow 3.00 L/M 10/18/18 10:00 Vent Setting Aprv/bi 10/21/18 05:49 Inspired O2 100 % 10/21/18 05:49 Critical Value No 10/21/18 05:49 Sodium 149 meq/L (136-145) H 10/21/18 03:23 Potassium 3.7 meq/L (3.5-5.1) 10/21/18 03:23 Chloride 109 meq/L (98-107) H 10/21/18 03:23 Carbon Dioxide 34.0 meq/L (21.0-32.0) H 10/21/18 03:23 Anion Gap 6 meq/L (5-15) 10/21/18 03:23 BUN 54 mg/dL (7-18) H 10/21/18 03:23 Creatinine 1.13 mg/dL (0.50-1.00) H 10/21/18 03:23 Estimated GFR 48 mL/min (>89) L 10/21/18 03:23 POC Glucose 166 mg/dl (68-110) H 10/21/18 00:26 Random Glucose 177 mg/dL (74-106) H 10/21/18 03:23 Hemoglobin A1c 7.0 % (4.3-6.0) H 10/18/18 14:38 Lactic Acid 1.7 mmol/L (0.4-2.0) 10/19/18 04:35 Calcium 8.6 mg/dL (8.5-10.1) 10/21/18 03:23 Phosphorus 2.6 mg/dL (2.5-4.9) 10/21/18 03:23 Magnesium 2.0 mg/dL (1.5-2.5) 10/21/18 03:23 Total Bilirubin 0.7 mg/dL (0.2-1.0) 10/19/18 04:35 Direct Bilirubin 0.3 mg/dL (0.0-0.2) H 10/18/18 14:38 Indirect Bilirubin 0.4 mg/dL (0.0-0.8) 10/18/18 14:38 AST 27 U/L (15-37) 10/19/18 04:35 ALT 33 U/L (10-53) 10/19/18 04:35 Alkaline Phosphatase 113 U/L (45-117) 10/19/18 04:35 Ammonia 44 mcmol/L (11-32) H 10/18/18 14:38 Total Creatine Kinase 51 U/L (26-192) 10/18/18 14:38 Troponin I 0.03 ng/mL (0.02-0.05) 10/18/18 09:30 Total Protein 7.0 g/dL (6.4-8.2) 10/19/18 04:35 Albumin 2.6 g/dL (3.4-5.0) L 10/19/18 04:35 Triglycerides 91 mg/dL (42-150) 10/20/18 04:53 Cholesterol 87 mg/dL (120-200) L 10/20/18 04:53 LDL Cholesterol, Calc 31 mg/dL (0-99) 10/20/18 04:53 HDL Cholesterol 37.9 mg/dL (40.0-60.0) L 10/20/18 04:53 Cholesterol/HDL Ratio 2.29 Ratio 10/20/18 04:53 TSH 1.420 uIU/mL (0.358-3.740) 10/18/18 14:38 Thyroxine (T4) 10.7 mcg/dL (4.8-13.9) 10/18/18 14:38 Urine Color Yellow (Yellw/Straw) 10/18/18 13:57 Urine Clarity Clear (Clear) 10/18/18 13:57 Urine pH 6.0 (5.0-8.5) 10/18/18 13:57 Ur Specific [place] 1.020 (1.002-1.035) 10/18/18 13:57 Urine Protein Negative mg/dL (Neg-Trace) 10/18/18 13:57 Urine Glucose (UA) Negative mg/dL (Negative) 10/18/18 13:57 Urine Ketones Negative mg/dL (Negative) 10/18/18 13:57 Urine Occult Blood Negative (Negative) 10/18/18 13:57 Urine Nitrate Negative (Negative) 10/18/18 13:57 Urine Bilirubin Negative (Negative) 10/18/18 13:57 Urine Urobilinogen 0.2 mg/dL (Less than 2) 10/18/18 13:57 Ur Leukocyte Esterase Negative (Negative) 10/18/18 13:57 Urine RBC 0-3 /hpf (0-3) 10/18/18 13:57 Urine WBC 0-5 /hpf (0-5) 10/18/18 13:57 Ur Squamous Epith Cells 0-5 /hpf (0-5) 10/18/18 13:57 Hyaline Casts 0-3 /lpf (0-3) 10/18/18 13:57 Micro UA Comment Culture not ind 10/18/18 13:57 Ur Microscopic Review Microscopic reviewed 10/18/18 13:57 Urine Culture Comments Culture not ind 10/18/18 13:57 Nasal Screen MRSA (PCR) Not detected (Negative) 10/18/18 13:49 Random Vancomycin 11.9 Comment 10/19/18 04:35 Adenovirus (PCR) Not detected (Not Detect) 10/18/18 14:45 Bordetella holmesii PCR Not detected (Not Detect) 10/18/18 14:45 B. pertussis DNA (PCR) Not detected (Not Detect) 10/18/18 14:45 B. paraper/bronch (PCR) Not detected (Not Detect) 10/18/18 14:45 Human Metapneumovir PCR Not detected (Not Detect) 10/18/18 14:45 Influenza A (RT-PCR) Not detected (Not Detect) 10/18/18 14:45 Influenza A (H1) PCR Not detected (Not Detect) 10/18/18 14:45 Influenza A (H3) PCR Not detected (Not Detect) 10/18/18 14:45 Influenza B (RT-PCR) Not detected (Not Detect) 10/18/18 14:45 Parainfluenza 1 (PCR) Not detected (Not Detect) 10/18/18 14:45 Parainfluenza 2 (PCR) Not detected (Not Detect) 10/18/18 14:45 Parainfluenza 3 (PCR) Not detected (Not Detect) 10/18/18 14:45 Parainfluenza 4 (PCR) Not detected (Not Detect) 10/18/18 14:45 RSV Type A (PCR) Not detected (Not Detect) 10/18/18 14:45 RSV Type B (PCR) Not detected (Not Detect) 10/18/18 14:45 Rhinovirus (PCR) Not detected (Not Detect) 10/18/18 14:45 Impressions Abdomen X-Ray 10/18/18 00:00 CONCLUSION: Tip of the NG tube just past the GE junction. Venous Doppler Study 10/18/18 10:59 CONCLUSION: 1. The study is negative for bilateral lower extremity deep venous thrombosis. Head CT 10/18/18 14:32 CONCLUSION: 1. No acute intracranial abnormality. . Chest CTA 10/20/18 00:00 CONCLUSION: 1. The study is negative for pulmonary embolism. 2. Bilateral lower lung consolidation and pleural effusions, right greater than left. Chest Ultrasound 10/21/18 00:00 CONCLUSION: 1. Trace pleural effusion on the right. Chest X-Ray 10/21/18 04:02 CONCLUSION: Slight interval worsening in aeration. Objective Remarks: GENERAL: This is a well-developed well-nourished morbidly obese female currently sedated and sedated SKIN: Warm and dry. Skin integrity intact HEAD: Atraumatic. Normocephalic. EYES: Pupils equal and round. EOMI. No scleral icterus. No injection or drainage. ENT: No nasal bleeding or discharge. Mucous membranes pink and moist. NECK: Trachea midline. No JVD. CARDIOVASCULAR: Irregular rate irregular rhythm. Atrial fibrillation RESPIRATORY: No accessory muscle use. Clear to auscultation. Breath sounds equal bilaterally. GASTROINTESTINAL: Abdomen soft, non-tender, obese nondistended. No guarding. MUSCULOSKELETAL: Extremities without clubbing, cyanosis, or edema. No obvious deformities. NEUROLOGICAL: RASS -1 No gross focal/sensory deficits. Follows commands in all 4 extremities. GCS 11T on sedation vacation Assessment and Plan - Problem List (1) Tobacco use disorder Code(s): F17.200 - Nicotine dependence, unspecified, uncomplicated Status: Acute - Assessment and Plan Plan: Plan by systems: Neurologic: Continue Versed and fentanyl infusions currently at 2 mg/hour and 100 mics/hour to maintain ventilator synchrony Daily sedation vacation Neurochecks per ICU protocol 10/19 CT head negative Respiratory: Acute hypercapnic respiratory failure Acute on chronic COPD exacerbation Tobacco use disorder Pneumonia B/L Pleural Effusions Maintain O2 sat greater than 92% Ventilator bundle Currently patient is on FiO2 of 70% with a PEEP of 10, continue to wean as tolerated Reinitiate CPAP trials when clinically indicated and less FiO2 requirement Chest x-rayslight improvement in aeration Vent management Biphasic mode Thi 5.2, PHi 35 T low 0.8 PSV 5 FIO2 60% Duo nebs every 4 hours scheduled and every 2 hours as needed Plan for smoking cessation counseling post extubation Continue Solu-Medrol 40 every 8hrs Patient has home O2 dependency ranging 3-4 LPM, per report of family Pulmonology following Nicotine patch medium dose US chest right effusion 125cc, left effusion 85cc 10/20- CTA no Pulm Embolus Cardiovascular: Cardiomegaly Chronic atrial fibrillation H/O HTN H/O CABG Continue amiodarone 200 mg/day, aspirin 81 mg/day, metoprolol 25 mg twice daily (with parameters only), and Eliquis 5 mg twice daily Continue home dosing Lasix 40 mg twice daily Monitor QT interval-patient currently on azithromycin and home dose amiodarone 10/20 ECHO results- EF40-45%, RV mildly dilated Renal: SAMIRA Insert Branch strict I and O-being monitored currently on diuretics -- Strict I/Os FEN/GI: Obesity Protein calorie malnutrition Albumin 3.0 Begin tube feedings Zofran for nausea Famotidine for GI prophylaxis Hold atorvastatin F/U lipid panel Heme/ID: Pneumonia 10/19 blood, urine, sputum cultures- NGTD influenza A/B- Neg strep pneumo antigen 10/18 respiratory panel- NGTD Monitor CBC Initiate empiric antibiotics cefepime, azithromycin, and vancomycin(day 4) Endocrine: Hyperglycemia of critical illness Glucose monitoring per ICU protocol, increased to high-dose regimen Hemoglobin A1c 7.0 on admission -- SSI Prophylaxis: GI Prophylaxis Famotidine DVT Prophylaxis -- SCDs Patient on Eliquis 5 mg twice daily Lines: Of IVs x2. Central line if indicated CCT 39 mins Code Status: Full
[2018-10-21 12:11] LABS: ABG Base Excess 6.4 mmol/L (-2-2); ABG PCO2 31 mmHg (38-42); ABG PO2 226 mmHG (61-120)
[2018-10-21] MEDS: fentaNYL 10 mcg/mL Premix Drip 2,500 MCG/250 ML BAG IV.SIG PRN (13:49)
[2018-10-21] MEDS: Azithromycin Inj 500 MG in Sodium Chlor 0.9% Inj 250 ML IV.SIG SCH (16:22)
[2018-10-21] MEDS ORDERED: Digoxin Inj 500 MCG/2 ML Ampul IV.PUSH ONE (16:45)
--- NOTE | 2018-10-21 17:04 | P.CONPAL ---
Consult Service: Palliative Care Requesting Physician: Hue Grullon Reason for Consult: a. To assist with evaluation and management of symptoms including: dyspnea, pain. b. To assist medical decision maker(s) with: better understanding of current medical conditions; weighing benefits/burdens of medical treatment options; making medical treatment decisions. Primary Care Provider: Talha Maguire History of Present Illness History of Present Illness: Mrs. Christianson is a 68-year-old female with past medical history of oxygen dependent COPD, GERD, atrial fibrillation, hypertension, coronary artery disease s/p CABG and stent placements, carotid artery stenosis, prior lung mass nondiagnostic biopsy. Patient was recently admitted to the hospital in [place] in August for respiratory distress, she was discharged to rehab, the day following rehab she and her family came to [place]. Patient presented to [facility] emergency department on 10/18/18 after her found her with altered mental status and worsening shortness of breath. Upon arrival to the emergency department the patient was found to have hypercapnic respiratory failure requiring intubation and mechanical ventilation. Chest x-ray on admission revealed mild right basilar consolidation and mild left basilar atelectasis. Doppler ultrasound of lower extremities negative for DVT. CT brain revealed no acute intracranial abnormalities. Patient remains sedated on mechanical ventilation in ICU. Palliative care was consulted to assist with further clarification of goals of medical treatment in this patient with COPD who family indicated never wanted to be on life support. Discussed with Dr. Grullon. Function/Cognitive Trajectory: Patient has had ongoing trajectory of decline in the months to years prior to this admission. Patient has been oxygen dependent since 2016. She was recently admitted to the hospital with rehab following for respiratory distress. Patient indicated to family prior to coming to [place] that this would be her last trip to [place]. 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 - Medical History Medical History: Medical History (Last Updated 10/21/18 @ 16:45 by Idania Perez) A-fib COPD (chronic obstructive pulmonary disease) Coronary artery disease GERD (gastroesophageal reflux disease) Hypertension - Surgical History Surgical History: Surgical History (Last Updated 10/21/18 @ 16:46 by Idania Perez) History of coronary artery stent placement S/P CABG (coronary artery bypass graft) - Family History Family History: Family History (Last Updated 10/21/18 @ 16:46 by Idania Perez) Other Parents - Social History I have reviewed the patient's Social History: Yes - Tobacco History Tobacco Use In Past 30 Days: Yes Smoking Status: Heavy tobacco smoker Tobacco Type: Cigarettes - Alcohol History How Often Do You Have a Drink Containing Alcohol: Never - Substance Use History Substance History: No History of Abuse - Travel History Recent Travel in the [place] Within the Last 8 Weeks: No Recent Travel Out of the Country Within the Last 8 Weeks: No - Immunization History Tetanus Immunization: Unsure Medications and Allergies Active Medications: Active Medications Acetaminophen (Tylenol) 650 mg PO Q6H PRN PRN Reason: PAIN 1-10 AND/OR FEVER >101F Al Hydroxide/Mg Hydroxide (Milk Of Magnmendez Liq) 30 ml PO Q12H PRN PRN Reason: Mild Constipation Albuterol (Duoneb Neb (Prn)) 1 ampul NEB Q2HR NEB PRN PRN Reason: SHORTNESS OF BREATH Albuterol (Duoneb Neb (Rony)) 1 ampul NEB Q4HR NEB [facility] Last Admin: 10/21/18 15:05 Dose: 1 ampul Amiodarone HCl (Cordarone) 200 mg PO DAILY [facility] Last Admin: 10/21/18 09:31 Dose: 200 mg Apixaban (Eliquis) 5 mg PO BID [facility] Last Admin: 10/20/18 08:42 Dose: 5 mg Aspirin (Aspirin Chew) 81 mg PO DAILY [facility] Last Admin: 10/21/18 09:30 Dose: 81 mg Atorvastatin Calcium (Lipitor) 80 mg PO DAILY [facility] Bisacodyl (Dulcolax Supp) 10 mg RECTAL DAILY PRN PRN Reason: SEVERE CONSITIPATION Chlorhexidine Gluconate (Peridex 0.12% Oral Kit) 15 ml OROPHARYNG BID@0800, 2000 [facility] Last Admin: 10/21/18 09:30 Dose: 15 ml Chlorhexidine Gluconate (Chlorhexidine 2% Cloth) 3 pack TOPICAL DAILY@0400 [facility] Stop: 10/24/18 03:59 Last Admin: 10/21/18 04:01 Dose: 3 pack Chlorhexidine Gluconate (Chlorhexidine 2% Cloth) 3 pack TOPICAL DAILY@0400 PRN PRN Reason: Extra cloth needed Stop: 10/24/18 03:59 Dextrose (D50w Vial) 50 ml IV.PUSH UNSCH PRN PRN Reason: PER HYPOGLYCEMIA PROTOCOL Famotidine (Pepcid) 20 mg PO BID [facility] Last Admin: 10/21/18 09:32 Dose: Not Given Famotidine (Pepcid Pf Inj) 20 mg IV.PUSH Q12HR [facility] Last Admin: 10/21/18 09:31 Dose: 20 mg Furosemide (Lasix Inj) 40 mg IV.PUSH BID@0900,1800 [facility] Last Admin: 10/21/18 10:11 Dose: Not Given Glucagon (Glucagon Inj) 1 mg OTHER PRN PRN PRN Reason: for Hypoglycemia Protocol Midazolam HCl (Versed Inj) 100 mg in 100 mls @ 2 mls/hr IV.CONT TITRATE PRN; Protocol PRN Reason: See protocol Last Admin: 10/21/18 10:31 Dose: 5 mg/hr, 5 mls/hr Fentanyl (Fentanyl 10 Mcg/Ml Premix Drip) 2,500 mcg in 250 mls @ 5 mls/hr IV.SIG TITRATE PRN; Protocol PRN Reason: Per Protocol Last Admin: 10/21/18 13:49 Dose: 200 mcg/hr, 20 mls/hr Cefepime HCl 1,000 mg/ Sodium (Chloride) 100 mls @ 200 mls/hr IV.SIG Q8H [facility] Last Infusion: 10/21/18 16:23 Dose: Infused Azithromycin 500 mg/ Sodium (Chloride) 250 mls @ 250 mls/hr IV.SIG Q24H [facility] Last Admin: 10/21/18 16:22 Dose: 250 mls/hr Phenylephrine HCl 40 mg/ (Sodium Chloride) 500 mls @ 30 mls/hr IV.CONT TITRATE PRN; Protocol PRN Reason: Per Protocol Last Titration: 10/20/18 02:00 Dose: 0 mcg/min, 0 mls/hr Vancomycin HCl 1,250 mg/ (Sodium Chloride) 262.5 mls @ 250 mls/hr IV.SIG Q24H [facility] Last Infusion: 10/21/18 04:01 Dose: Infused Magnesium Sulfate 4 gm/ Sodium (Chloride) 100 mls @ 50 mls/hr IV.SIG UNSCH PRN PRN Reason: For Magnesium 0.9 - 1.1 mg/dL Magnesium Sulfate 2 gm/ Sodium (Chloride) 100 mls @ 50 mls/hr IV.SIG UNSCH PRN PRN Reason: For Magnesium 1.2 - 1.6 mg/dL Potassium Chloride (Kcl 40 Meq Premix Inj) 40 meq in 100 mls @ 25 mls/hr IV.SIG Q2H PRN PRN Reason: For Potassium 2.8 - 3.2 mEq/L Potassium Chloride (Kcl 20 Meq Premix Inj) 20 meq in 100 mls @ 50 mls/hr IV.SIG Q2H PRN PRN Reason: For Potassium 3.3 - 3.5 mEq/L Potassium Chloride (Kcl 40 Meq Premix Inj) 40 meq in 100 mls @ 25 mls/hr IV.SIG UNSCH PRN PRN Reason: For Potassium 3.3 - 3.5 mEq/L Potassium Chloride (Kcl 20 Meq Premix Inj) 20 meq in 100 mls @ 50 mls/hr IV.SIG Q2H PRN PRN Reason: For Potassium 2.8 - 3.2 mEq/L Potassium Phosphate 30 mmol/ (Sodium Chloride) 260 mls @ 42 mls/hr IV.SIG UNSCH PRN PRN Reason: SEE LABEL COMMENTS Sodium Phosphate 30 mmol/ (Sodium Chloride) 260 mls @ 42 mls/hr IV.SIG UNSCH PRN PRN Reason: For Phosphorus < 2.5 mg/dL Insulin Aspart (Novolog Insulin Correctional Sugar Inj) 0 unit SQ Q6HR [facility]; Protocol Last Admin: 10/21/18 12:41 Dose: 5 unit Lactulose (Lactulose Liq) 30 ml PO DAILY PRN PRN Reason: SEVERE CONSITIPATION Magnesium Oxide (Mag-Ox) 800 mg PO UNSCH PRN PRN Reason: For Magnesium 1.2 - 1.6 mg/dL Methylprednisolone Sodium Succinate (Solumedrol Inj) 40 mg IV.PUSH Q8HR [facility] Last Admin: 10/21/18 13:14 Dose: 40 mg Metoprolol Tartrate (Lopressor) 25 mg PO BID [facility] Last Admin: 10/21/18 13:14 Dose: 25 mg Miscellaneous Information ([facility] Ordered Lab Info) 0 each OTHER ONCE ONE Stop: 10/21/18 19:46 Miscellaneous Medication () 1 each OROPHARYNG 0000,0400,1200,1600 [facility] Last Admin: 10/21/18 16:22 Dose: 1 each Nicotine (Habitrol 14 Mg Patch.24 Hr) 1 patch T-DERMAL DAILY [facility] Ondansetron HCl (Zofran Inj) 4 mg IV.PUSH Q6H PRN PRN Reason: NAUSEA OR VOMITING Pharmacy Profile Note (Vancomycin Consult Pharmacy) 1 each OTHER UNSCH PRN PRN Reason: Pharmacy to dose Potassium Chloride (Kcl Liq) 40 meq PO UNSCH PRN PRN Reason: Potassium level 3.3-3.5 mEq/L Potassium Chloride (Kcl Liq) 40 meq PO UNSCH PRN PRN Reason: POTASSIUM LESS THAN 3.5 Potassium Phosphate (K-Phos Original) 2,000 mg PO Q4H PRN PRN Reason: Phosphorus Less Than 2.5 mg/dL Potassium Phosphate (K-Phos Original) 2,000 mg PO UNSCH PRN PRN Reason: SEE LABEL COMMENTS Senna/Docusate Sodium (Paz-Colace) 1 tab PO BID [facility] Last Admin: 10/21/18 09:30 Dose: 1 tab Sennosides (Senokot) 17.2 mg PO Q12H PRN PRN Reason: Moderate Constipation Sodium Chloride (Ns Flush) 2 ml IV.FLUSH BID [facility] Last Admin: 10/21/18 09:31 Dose: 2 ml Sodium Chloride (Ns Flush) 2 ml IV.FLUSH PRN PRN PRN Reason: FLUSH AFTER USING IV ACCESS Terbutaline Sulfate (Brethine Inj) 1 mg SQ UNSCH PRN PRN Reason: For Extravasation Allergies Allergy/AdvReac Type Severity Reaction Status Date / Time ciprofloxacin [From Cipro] Allergy Rash Verified 10/18/18 09:41 metronidazole [From Flagyl] Allergy Rash Verified 10/18/18 09:41 Home Medications Medication Instructions Recorded Confirmed Type Lactobacillus acidoph-L.bulgar 1 tab PO DAILY 10/18/18 10/18/18 History [Floranex] acetaminophen 650 mg PO Q6H PRN 10/18/18 10/18/18 History albuterol sulfate [Ventolin HFA] 2 puff INHALATION Q6H PRN 10/18/18 10/18/18 History amiodarone 200 mg PO DAILY 10/18/18 10/18/18 History apixaban [Eliquis] 5 mg PO BID 10/18/18 10/18/18 History aspirin [Aspirin Childrens] 81 mg PO DAILY 10/18/18 10/18/18 History atorvastatin 80 mg PO DAILY 10/18/18 10/18/18 History jkyffan-ocekegdfj-xuxe 1 tab PO DAILY 10/18/18 10/18/18 History cholecalciferol (vitamin D3) 1,000 unit PO DAILY 10/18/18 10/18/18 History [Vitamin D3] cyanocobalamin (vitamin B-12) 500 mcg PO DAILY 10/18/18 10/18/18 History [Vitamin B-12] docusate sodium 100 mg PO BID 10/18/18 10/18/18 History furosemide 40 mg PO BID 10/18/18 10/18/18 History ipratropium-albuterol 3 ml INHALATION Q4HR PRN 10/18/18 10/18/18 History magnesium oxide 400 mg PO DAILY 10/18/18 10/18/18 History metoprolol succinate 50 mg PO DAILY 10/18/18 10/18/18 History nitroglycerin 0.4 mg SUBLINGUAL Q5-15M PRN 10/18/18 10/18/18 History ropinirole 0.25 mg PO HS 10/18/18 10/18/18 History umeclidinium-vilanterol [Anoro 1 inh INHALATION Q24H 10/18/18 10/18/18 History Ellipta] Advance Directives Living Will: No Healthcare Surrogate: No Health Care Surrogate Name and Number: Health Care Proxy: spouseDc Feeser : [phone] Power of Reimbursement Liaison: No Today's verbally stated goals: Patient is not capacitated to make her own health care decisions, uncertain if he will regain capacity. Ethical and Legal Issues: Patient is not capacitated to make her own health care decisions, uncertain if he will regain capacity. According to [place] statutes, health care proxy decision making falls to her spouse, Dc. Physical Exam Vital Signs: Vital Signs - 24 hr 10/20/18 17:37 10/20/18 18:00 10/20/18 18:01 Temperature 97.6 F Pulse Rate 99 H 103 H Respiratory Rate 19 Blood Pressure 109/67 Pulse Oximetry 93 L 90 L 96 10/20/18 19:00 10/20/18 19:42 10/20/18 20:00 Temperature Pulse Rate 99 H 104 H 99 H Respiratory Rate 23 18 18 Blood Pressure 124/71 121/72 124/70 Pulse Oximetry 95 94 L 94 L 10/20/18 20:04 10/20/18 21:00 10/20/18 22:00 Temperature Pulse Rate 100 H 104 H 99 H Respiratory Rate 18 18 18 Blood Pressure 97/73 L 122/77 Pulse Oximetry 94 L 93 L 94 L 10/20/18 23:00 10/20/18 23:54 10/20/18 23:55 Temperature Pulse Rate 91 H 104 H Respiratory Rate 18 18 18 Blood Pressure 139/61 Pulse Oximetry 93 L 92 L 10/21/18 00:00 10/21/18 01:00 10/21/18 02:00 Temperature Pulse Rate 107 H 101 H 100 H Respiratory Rate 18 18 18 Blood Pressure 124/60 119/64 114/60 Pulse Oximetry 92 L 92 L 91 L 10/21/18 03:00 10/21/18 03:49 10/21/18 04:00 Temperature Pulse Rate 114 H 105 H 124 H Respiratory Rate 18 18 18 Blood Pressure 128/68 Pulse Oximetry 91 L 89 L 10/21/18 04:01 10/21/18 04:14 10/21/18 04:36 Temperature Pulse Rate 110 H 114 H 131 H Respiratory Rate 18 18 19 Blood Pressure 94/53 L 96/53 L 101/56 L Pulse Oximetry 90 L 90 L 92 L 10/21/18 04:50 10/21/18 05:00 10/21/18 05:14 Temperature Pulse Rate 124 H 120 H Respiratory Rate 18 18 18 Blood Pressure 89/56 L 93/50 L Pulse Oximetry 90 L 90 L 90 L 10/21/18 05:44 10/21/18 05:45 10/21/18 06:00 Temperature Pulse Rate 120 H 113 H Respiratory Rate Blood Pressure 110/61 111/57 L Pulse Oximetry 96 94 L 100 10/21/18 07:00 10/21/18 07:32 10/21/18 07:40 Temperature Pulse Rate 125 H 125 H Respiratory Rate 10 L 10 L Blood Pressure 118/80 Pulse Oximetry 100 100 10/21/18 07:45 10/21/18 08:00 10/21/18 08:31 Temperature 97.9 F Pulse Rate 119 H 115 H 117 H Respiratory Rate 14 12 11 L Blood Pressure 114/56 L 97/53 L 101/65 Pulse Oximetry 99 98 100 10/21/18 09:00 10/21/18 09:30 10/21/18 10:00 Temperature Pulse Rate 119 H 123 H 126 H Respiratory Rate 14 13 10 L Blood Pressure 98/52 L 98/67 L 107/65 Pulse Oximetry 100 99 98 10/21/18 10:30 10/21/18 11:00 10/21/18 11:14 Temperature Pulse Rate 122 H 124 H Respiratory Rate 10 L 10 L 10 L Blood Pressure 98/54 L 93/55 L Pulse Oximetry 98 98 98 10/21/18 11:21 10/21/18 11:30 10/21/18 12:00 Temperature Pulse Rate 126 H 121 H 122 H Respiratory Rate 15 10 L 10 L Blood Pressure 91/61 L Pulse Oximetry 98 99 10/21/18 12:11 10/21/18 13:00 10/21/18 13:15 Temperature Pulse Rate 117 H 120 H 126 H Respiratory Rate 10 L 10 L 10 L Blood Pressure 116/73 117/65 Pulse Oximetry 98 98 97 10/21/18 13:30 10/21/18 14:00 10/21/18 15:00 Temperature 97.8 F Pulse Rate 125 H 115 H 123 H Respiratory Rate 10 L 10 L 10 L Blood Pressure 99/66 L 99/71 L 85/59 L Pulse Oximetry 98 98 98 I&O: Intake & Output 10/19/18 10/20/18 10/21/18 10/22/18 06:59 06:59 06:59 06:59 Intake Total 5973.5 / 5973.5 3762.5 / 3762.5 1062.5 / 1062.5 550 / 550 Output Total 1755 / 1755 1999 / 1999 3025 / 3025 Balance 4218.5 / 4218.5 1762.5 / 1762.5 -1962.5 / -1962.5 550 / 550 Weight 113.4 kg 115 kg 114 kg Physical Exam: CONSTITUTIONAL/GENERAL: This is an adequately nourished patient, sedated on mech vent. TUBES/LINES/DRAINS:ETT, OG, wrist restaints, IV, SCDs, Branch. SKIN: No jaundice, rashes, or lesions. Ecchymoses on upper extremities. No wounds seen anteriorly. Skin temperature appropriate. Not diaphoretic. HEAD: Atraumatic. Normocephalic. EYES: Pupils equal and round and reactive. ENT: Unable to assess hearing. Nose without bleeding or purulent drainage. Throat difficult to visualize secondary to tubes. NECK: Trachea midline. CARDIOVASCULAR: Tachycardic rate 120s, atrial fibrillation on telemetry. RESPIRATORY/CHEST: On mechanical ventilation. Shallow distant breath sounds. GASTROINTESTINAL: Abdomen soft, protuberant. No guarding. Bowel sounds present. GENITOURINARY: Without palpable bladder distension. Branch catheter in place. MUSCULOSKELETAL: Extremities with edema. No mottling or clubbing. LYMPHATICS: No palpable cervical or supraclavicular adenopathy. NEUROLOGICAL: Sedated. PSYCHIATRIC: Sedated. Diagnostic Tests Laboratory: Laboratory Results - last 72 hr 10/18/18 10/18/18 10/18/18 13:49 14:38 14:45 CBC w Diff WBC RBC Hgb Hct MCV MCH MCHC RDW Plt Count MPV Neut % (Auto) Lymph % (Auto) [place] % (Auto) Eos % (Auto) Baso % (Auto) Neut # (Auto) Lymph # (Auto) [place] # (Auto) Eos # (Auto) Baso # (Auto) WBC Differential Differential Comment PT INR Puncture Site Patient Temperature O2 Saturation ABG pH ABG pCO2 ABG pO2 ABG HCO3 ABG O2 Content ABG Base Excess ABG Methemoglobin Josse Test Hemoglobin Carboxyhemoglobin O2 Delivery Device Vent Setting Inspired O2 Critical Value Sodium Potassium Chloride Carbon Dioxide Anion Gap BUN Creatinine Estimated GFR POC Glucose Random Glucose Hemoglobin A1c 7.0 H Lactic Acid Calcium Phosphorus Magnesium Total Bilirubin AST ALT Alkaline Phosphatase Total Protein Albumin Triglycerides Cholesterol LDL Cholesterol, Calc HDL Cholesterol Cholesterol/HDL Ratio Nasal Screen MRSA (PCR) Not detected Random Vancomycin Adenovirus (PCR) Not detected Bordetella holmesii PCR Not detected B. pertussis DNA (PCR) Not detected B. paraper/bronch (PCR) Not detected Human Metapneumovir PCR Not detected Influenza A (RT-PCR) Not detected Influenza A (H1) PCR Not detected Influenza A (H3) PCR Not detected Influenza B (RT-PCR) Not detected Parainfluenza 1 (PCR) Not detected Parainfluenza 2 (PCR) Not detected Parainfluenza 3 (PCR) Not detected Parainfluenza 4 (PCR) Not detected RSV Type A (PCR) Not detected RSV Type B (PCR) Not detected Rhinovirus (PCR) Not detected 10/19/18 10/19/18 10/19/18 04:10 04:35 04:35 CBC w Diff Auto diff final WBC 9.0 RBC 3.79 L Hgb 12.5 Hct 37.8 MCV 99.7 MCH 32.9 MCHC 33.0 RDW 17.8 H Plt Count 250 MPV 9.0 Neut % (Auto) 85.8 H Lymph % (Auto) 5.7 L [place] % (Auto) 7.1 Eos % (Auto) 0.0 Baso % (Auto) 1.4 Neut # (Auto) 7.8 H Lymph # (Auto) 0.5 L [place] # (Auto) 0.6 Eos # (Auto) 0.0 Baso # (Auto) 0.1 WBC Differential . Differential Comment . PT 13.0 H INR 1.3 Puncture Site Right brachial Patient Temperature 98.6 O2 Saturation 91 ABG pH 7.42 ABG pCO2 52 H* ABG pO2 63 ABG HCO3 33 H ABG O2 Content 15.4 ABG Base Excess 8.0 H ABG Methemoglobin 0.7 Josse Test Hemoglobin 12.0 Carboxyhemoglobin 1.9 O2 Delivery Device Ventilator Vent Setting Prvc/ac Inspired O2 40 Critical Value Yes Sodium Potassium Chloride Carbon Dioxide Anion Gap BUN Creatinine Estimated GFR POC Glucose Random Glucose Hemoglobin A1c Lactic Acid Calcium Phosphorus Magnesium Total Bilirubin AST ALT Alkaline Phosphatase Total Protein Albumin Triglycerides Cholesterol LDL Cholesterol, Calc HDL Cholesterol Cholesterol/HDL Ratio Nasal Screen MRSA (PCR) Random Vancomycin Adenovirus (PCR) Bordetella holmesii PCR B. pertussis DNA (PCR) B. paraper/bronch (PCR) Human Metapneumovir PCR Influenza A (RT-PCR) Influenza A (H1) PCR Influenza A (H3) PCR Influenza B (RT-PCR) Parainfluenza 1 (PCR) Parainfluenza 2 (PCR) Parainfluenza 3 (PCR) Parainfluenza 4 (PCR) RSV Type A (PCR) RSV Type B (PCR) Rhinovirus (PCR) 10/19/18 10/19/18 10/19/18 04:35 04:35 08:03 CBC w Diff WBC RBC Hgb Hct MCV MCH MCHC RDW Plt Count MPV Neut % (Auto) Lymph % (Auto) [place] % (Auto) Eos % (Auto) Baso % (Auto) Neut # (Auto) Lymph # (Auto) [place] # (Auto) Eos # (Auto) Baso # (Auto) WBC Differential Differential Comment PT INR Puncture Site Patient Temperature O2 Saturation ABG pH ABG pCO2 ABG pO2 ABG HCO3 ABG O2 Content ABG Base Excess ABG Methemoglobin Josse Test Hemoglobin Carboxyhemoglobin O2 Delivery Device Vent Setting Inspired O2 Critical Value Sodium 146 H Potassium 4.1 Chloride 106 D Carbon Dioxide 34.4 H Anion Gap 6 BUN 48 H Creatinine 1.30 H Estimated GFR 40 L POC Glucose 163 Random Glucose 164 H Hemoglobin A1c Lactic Acid 1.7 Calcium 8.1 L Phosphorus 2.7 Magnesium 1.8 D Total Bilirubin 0.7 AST 27 ALT 33 Alkaline Phosphatase 113 Total Protein 7.0 Albumin 2.6 L Triglycerides Cholesterol LDL Cholesterol, Calc HDL Cholesterol Cholesterol/HDL Ratio Nasal Screen MRSA (PCR) Random Vancomycin 11.9 Adenovirus (PCR) Bordetella holmesii PCR B. pertussis DNA (PCR) B. paraper/bronch (PCR) Human Metapneumovir PCR Influenza A (RT-PCR) Influenza A (H1) PCR Influenza A (H3) PCR Influenza B (RT-PCR) Parainfluenza 1 (PCR) Parainfluenza 2 (PCR) Parainfluenza 3 (PCR) Parainfluenza 4 (PCR) RSV Type A (PCR) RSV Type B (PCR) Rhinovirus (PCR) 10/19/18 10/19/18 10/20/18 11:56 16:39 01:21 CBC w Diff WBC RBC Hgb Hct MCV MCH MCHC RDW Plt Count MPV Neut % (Auto) Lymph % (Auto) [place] % (Auto) Eos % (Auto) Baso % (Auto) Neut # (Auto) Lymph # (Auto) [place] # (Auto) Eos # (Auto) Baso # (Auto) WBC Differential Differential Comment PT INR Puncture Site Patient Temperature O2 Saturation ABG pH ABG pCO2 ABG pO2 ABG HCO3 ABG O2 Content ABG Base Excess ABG Methemoglobin Josse Test Hemoglobin Carboxyhemoglobin O2 Delivery Device Vent Setting Inspired O2 Critical Value Sodium Potassium Chloride Carbon Dioxide Anion Gap BUN Creatinine Estimated GFR POC Glucose 151 171 189 Random Glucose Hemoglobin A1c Lactic Acid Calcium Phosphorus Magnesium Total Bilirubin AST ALT Alkaline Phosphatase Total Protein Albumin Triglycerides Cholesterol LDL Cholesterol, Calc HDL Cholesterol Cholesterol/HDL Ratio Nasal Screen MRSA (PCR) Random Vancomycin Adenovirus (PCR) Bordetella holmesii PCR B. pertussis DNA (PCR) B. paraper/bronch (PCR) Human Metapneumovir PCR Influenza A (RT-PCR) Influenza A (H1) PCR Influenza A (H3) PCR Influenza B (RT-PCR) Parainfluenza 1 (PCR) Parainfluenza 2 (PCR) Parainfluenza 3 (PCR) Parainfluenza 4 (PCR) RSV Type A (PCR) RSV Type B (PCR) Rhinovirus (PCR) 10/20/18 10/20/18 10/20/18 04:06 04:30 04:53 CBC w Diff WBC RBC Hgb Hct MCV MCH MCHC RDW Plt Count MPV Neut % (Auto) Lymph % (Auto) [place] % (Auto) Eos % (Auto) Baso % (Auto) Neut # (Auto) Lymph # (Auto) [place] # (Auto) Eos # (Auto) Baso # (Auto) WBC Differential Differential Comment PT INR Puncture Site Right radial Patient Temperature 98.6 O2 Saturation 88 L* ABG pH 7.40 ABG pCO2 52 H* ABG pO2 57 L* ABG HCO3 32 H ABG O2 Content 15.0 ABG Base Excess 6.7 H ABG Methemoglobin 0.6 Josse Test Y Hemoglobin 12.1 Carboxyhemoglobin 1.4 O2 Delivery Device Ventilator Vent Setting Prvc/ac Inspired O2 60 Critical Value Yes Sodium 147 H Potassium 4.0 Chloride 109 H Carbon Dioxide 33.1 H Anion Gap 5 BUN 54 H Creatinine 1.30 H Estimated GFR 40 L POC Glucose 193 Random Glucose 186 H Hemoglobin A1c Lactic Acid Calcium 8.5 Phosphorus 2.9 Magnesium 1.9 Total Bilirubin AST ALT Alkaline Phosphatase Total Protein Albumin Triglycerides Cholesterol LDL Cholesterol, Calc HDL Cholesterol Cholesterol/HDL Ratio Nasal Screen MRSA (PCR) Random Vancomycin Adenovirus (PCR) Bordetella holmesii PCR B. pertussis DNA (PCR) B. paraper/bronch (PCR) Human Metapneumovir PCR Influenza A (RT-PCR) Influenza A (H1) PCR Influenza A (H3) PCR Influenza B (RT-PCR) Parainfluenza 1 (PCR) Parainfluenza 2 (PCR) Parainfluenza 3 (PCR) Parainfluenza 4 (PCR) RSV Type A (PCR) RSV Type B (PCR) Rhinovirus (PCR) 10/20/18 10/20/18 10/20/18 04:53 04:53 11:08 CBC w Diff Auto diff final WBC 9.0 RBC 3.71 L Hgb 12.0 Hct 37.0 MCV 99.8 MCH 32.4 MCHC 32.5 RDW 17.0 Plt Count 204 MPV 8.6 Neut % (Auto) 90.7 H Lymph % (Auto) 4.9 L [place] % (Auto) 3.0 Eos % (Auto) 0.0 Baso % (Auto) 1.4 Neut # (Auto) 8.2 H Lymph # (Auto) 0.4 L [place] # (Auto) 0.3 Eos # (Auto) 0.0 Baso # (Auto) 0.1 WBC Differential . Differential Comment . PT INR Puncture Site Patient Temperature O2 Saturation ABG pH ABG pCO2 ABG pO2 ABG HCO3 ABG O2 Content ABG Base Excess ABG Methemoglobin Josse Test Hemoglobin Carboxyhemoglobin O2 Delivery Device Vent Setting Inspired O2 Critical Value Sodium Potassium Chloride Carbon Dioxide Anion Gap BUN Creatinine Estimated GFR POC Glucose 173 Random Glucose Hemoglobin A1c Lactic Acid Calcium Phosphorus Magnesium Total Bilirubin AST ALT Alkaline Phosphatase Total Protein Albumin Triglycerides 91 Cholesterol 87 L LDL Cholesterol, Calc 31 HDL Cholesterol 37.9 L Cholesterol/HDL Ratio 2.29 Nasal Screen MRSA (PCR) Random Vancomycin Adenovirus (PCR) Bordetella holmesii PCR B. pertussis DNA (PCR) B. paraper/bronch (PCR) Human Metapneumovir PCR Influenza A (RT-PCR) Influenza A (H1) PCR Influenza A (H3) PCR Influenza B (RT-PCR) Parainfluenza 1 (PCR) Parainfluenza 2 (PCR) Parainfluenza 3 (PCR) Parainfluenza 4 (PCR) RSV Type A (PCR) RSV Type B (PCR) Rhinovirus (PCR) 10/20/18 10/20/18 10/21/18 11:56 17:49 00:26 CBC w Diff WBC RBC Hgb Hct MCV MCH MCHC RDW Plt Count MPV Neut % (Auto) Lymph % (Auto) [place] % (Auto) Eos % (Auto) Baso % (Auto) Neut # (Auto) Lymph # (Auto) [place] # (Auto) Eos # (Auto) Baso # (Auto) WBC Differential Differential Comment PT INR Puncture Site Right radial Patient Temperature 98.6 O2 Saturation 92 ABG pH 7.44 H ABG pCO2 49 H ABG pO2 64 ABG HCO3 33 H ABG O2 Content 15.6 ABG Base Excess 8.2 H ABG Methemoglobin 0.3 Josse Test Present Hemoglobin 12.1 Carboxyhemoglobin 1.3 O2 Delivery Device Vent Vent Setting [id number] Inspired O2 80 Critical Value No Sodium Potassium Chloride Carbon Dioxide Anion Gap BUN Creatinine Estimated GFR POC Glucose 191 H 166 H Random Glucose Hemoglobin A1c Lactic Acid Calcium Phosphorus Magnesium Total Bilirubin AST ALT Alkaline Phosphatase Total Protein Albumin Triglycerides Cholesterol LDL Cholesterol, Calc HDL Cholesterol Cholesterol/HDL Ratio Nasal Screen MRSA (PCR) Random Vancomycin Adenovirus (PCR) Bordetella holmesii PCR B. pertussis DNA (PCR) B. paraper/bronch (PCR) Human Metapneumovir PCR Influenza A (RT-PCR) Influenza A (H1) PCR Influenza A (H3) PCR Influenza B (RT-PCR) Parainfluenza 1 (PCR) Parainfluenza 2 (PCR) Parainfluenza 3 (PCR) Parainfluenza 4 (PCR) RSV Type A (PCR) RSV Type B (PCR) Rhinovirus (PCR) 10/21/18 10/21/18 10/21/18 03:23 03:23 05:49 CBC w Diff WBC 10.4 RBC 3.86 L Hgb 12.9 Hct 38.7 MCV 100.2 H MCH 33.4 MCHC 33.4 RDW 17.5 H Plt Count 224 MPV 8.4 Neut % (Auto) 92.4 H Lymph % (Auto) 3.7 L [place] % (Auto) 3.8 Eos % (Auto) 0.0 Baso % (Auto) 0.1 Neut # (Auto) 9.6 H Lymph # (Auto) 0.4 L [place] # (Auto) 0.4 Eos # (Auto) 0.0 Baso # (Auto) 0.0 WBC Differential . Differential Comment Auto diff final PT INR Puncture Site Left radial Patient Temperature 98.6 O2 Saturation 97 ABG pH 7.46 H ABG pCO2 46 H ABG pO2 130 H ABG HCO3 32 H ABG O2 Content 17.4 ABG Base Excess 8.1 H ABG Methemoglobin 1.4 Josse Test Present Hemoglobin 12.7 Carboxyhemoglobin 0.8 O2 Delivery Device Ventilator Vent Setting Aprv/bi Inspired O2 100 Critical Value No Sodium 149 H Potassium 3.7 Chloride 109 H Carbon Dioxide 34.0 H Anion Gap 6 BUN 54 H Creatinine 1.13 H Estimated GFR 48 L POC Glucose Random Glucose 177 H Hemoglobin A1c Lactic Acid Calcium 8.6 Phosphorus 2.6 Magnesium 2.0 Total Bilirubin AST ALT Alkaline Phosphatase Total Protein Albumin Triglycerides Cholesterol LDL Cholesterol, Calc HDL Cholesterol Cholesterol/HDL Ratio Nasal Screen MRSA (PCR) Random Vancomycin Adenovirus (PCR) Bordetella holmesii PCR B. pertussis DNA (PCR) B. paraper/bronch (PCR) Human Metapneumovir PCR Influenza A (RT-PCR) Influenza A (H1) PCR Influenza A (H3) PCR Influenza B (RT-PCR) Parainfluenza 1 (PCR) Parainfluenza 2 (PCR) Parainfluenza 3 (PCR) Parainfluenza 4 (PCR) RSV Type A (PCR) RSV Type B (PCR) Rhinovirus (PCR) 10/21/18 10/21/18 12:00 12:41 CBC w Diff WBC RBC Hgb Hct MCV MCH MCHC RDW Plt Count MPV Neut % (Auto) Lymph % (Auto) [place] % (Auto) Eos % (Auto) Baso % (Auto) Neut # (Auto) Lymph # (Auto) [place] # (Auto) Eos # (Auto) Baso # (Auto) WBC Differential Differential Comment PT INR Puncture Site Right radial Patient Temperature 98.6 O2 Saturation 98 ABG pH 7.58 H* ABG pCO2 31 L ABG pO2 226 H ABG HCO3 29 H ABG O2 Content 18.0 ABG Base Excess 6.4 H ABG Methemoglobin 1.2 Josse Test Present Hemoglobin 12.8 Carboxyhemoglobin 0.9 O2 Delivery Device Ventilator Vent Setting See comments Inspired O2 50 Critical Value Yes Sodium Potassium Chloride Carbon Dioxide Anion Gap BUN Creatinine Estimated GFR POC Glucose 211 H Random Glucose Hemoglobin A1c Lactic Acid Calcium Phosphorus Magnesium Total Bilirubin AST ALT Alkaline Phosphatase Total Protein Albumin Triglycerides Cholesterol LDL Cholesterol, Calc HDL Cholesterol Cholesterol/HDL Ratio Nasal Screen MRSA (PCR) Random Vancomycin Adenovirus (PCR) Bordetella holmesii PCR B. pertussis DNA (PCR) B. paraper/bronch (PCR) Human Metapneumovir PCR Influenza A (RT-PCR) Influenza A (H1) PCR Influenza A (H3) PCR Influenza B (RT-PCR) Parainfluenza 1 (PCR) Parainfluenza 2 (PCR) Parainfluenza 3 (PCR) Parainfluenza 4 (PCR) RSV Type A (PCR) RSV Type B (PCR) Rhinovirus (PCR) Result Diagrams: 10/21/18 03:23 10/21/18 03:23 Microbiology: Microbiology 10/18/18 09:30 Aerobic Blood Culture - Preliminary Blood - Peripheral No growth in 3 days Anaerobic Blood Culture - Preliminary No growth in 3 days 10/18/18 09:25 Aerobic Blood Culture - Preliminary Blood - Peripheral No growth in 3 days Anaerobic Blood Culture - Preliminary No growth in 3 days 10/18/18 14:30 Gram Stain - Final Sputum - Endotracheal Sputum Culture - Final Heavy growth normal respiratory dylan 10/18/18 13:57 Urine Culture - Final Catheterized Urine No growth in 48 hours 10/18/18 18:30 Streptococcus pneumoniae Antigen (M - Final Urine - Catheterized Urine Presumptive negative for streptococcus pneumoniae antigen, suggesting no current or recent infection. Infection due to Streptococcus pneumoniae cannot be ruled out since the antigen present in the sample may be below the detection limit of the test. 10/18/18 18:30 Influenza Types A,B Antigen - Final Nasal Wash Negative for FLU A and B antigen Infection due to influenza A or B cannot be ruled out since the antigen present in the sample may be below the detection limit of the test. Imaging: Abdomen X-Ray 10/18/18 00:00 CONCLUSION: Tip of the NG tube just past the GE junction. Venous Doppler Study 10/18/18 10:59 CONCLUSION: 1. The study is negative for bilateral lower extremity deep venous thrombosis. Head CT 10/18/18 14:32 CONCLUSION: 1. No acute intracranial abnormality. . Chest CTA 10/20/18 00:00 CONCLUSION: 1. The study is negative for pulmonary embolism. 2. Bilateral lower lung consolidation and pleural effusions, right greater than left. Chest Ultrasound 10/21/18 00:00 CONCLUSION: 1. Trace pleural effusion on the right. Chest X-Ray 10/21/18 04:02 CONCLUSION: Slight interval worsening in aeration. Procedures: * 10/18/18 - intubated Patient/Family Conference Present at Family Conference: Met with spouse, children and their spouses, grandson and his spouse. Family Conference Time: 60 Family Conference Location: Consult Room Issues Discussed: * Palliative care role, purpose, approach * Additional medical, psychosocial, and spiritual history * Patients general health, functional status, and cognitive changes in the months leading up to the current hospitalization * Patient/family understanding of the current medical problems * Patient/family understanding of prognosis * Patients goals of care as best understood from advance directives and/or conversations and/or values * Current medical treatment options and benefits/burdens of those options * Likely scenarios comparing ongoing aggressive care with a transition to comfort measures only * Questions answered to the best of my ability * Palliative care contact information provided Family all indicates that patient did not ever want to be put on life support. That she would be angry if she knew that she was on the ventilator at this time. Family is certain she would want compassionate withdrawal of life support. Anticipatory guidance provided. Timing to be determined, anticipate compassionate withdrawal of life support and transition to comfort on 10/22/18 or 10/23/18 - plan for palliative care to meet with family again on 10/22/18 at 10 AM. Assessment and Plan - Disease Oriented Problem List (1) Acute respiratory failure with hypercapnia (2) Pneumonia (3) Tobacco use disorder - Symptom Scale (1) Pain 0-10 Scale: Unable to quantify (2) Dyspnea 0-10 Scale: Unable to quantify Pertinent Non-Medical Issues: Psychosocial: to her spouse Dc for 51 years. Supported by her daughter, Eula and son. Grandson and other family members here from [place]. Patient visits [place] yearly during winter season. 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 Legal:Patient is not capacitated to make her own health care decisions, uncertain if he will regain capacity. According to [place] statutes, health care proxy decision making falls to her spouse, Dc. Ethical issues impacting care: No known concerns at this time. Important Contacts: * Dc Stahl, spouse: [phone] * Eula Lackey, daughter: [phone] Prognosis: Mrs. Avalos is a 68-year-old female with oxygen dependent COPD admitted with respiratory failure who never wanted mechanical ventilation or heroic measures. Family feels patient would want compassionate withdrawal of life support and transition to comfort focused care. Timing to be determined. Patient has end- stage/ terminal COPD. Code Status: No Code DNR Plan: * Patient is not capacitated to make her own health care decisions, uncertain if he will regain capacity. According to [place] statutes, health care proxy decision making falls to her spouse, Dc. * NO CODE * Plan for tentative compassionate withdrawal of life support in the coming day( s), timing to be determined. PLan to meet with family again 10/22/18 around 10am. Anticipatory guidance provided. * Exhibits B & C placed on chart for signatures when family ready. * Discussed with Dr. Grullon and nursing staff. * Medical Case Manager support offered, family will notify whether or not they wish to have crushing machine operator visit on 10/22/18. * Palliative care number provided. * Palliative care will continue to follow throughout hospital course to assist with symptom management further clarification of treatment goals. Appreciation Thank you for the opportunity to participate in the care of Valeria Christianson. Attestation Attestation: To help prompt me to consider important information that might be impacting today's encounter and assessment, information from prior notes written by myself or my colleagues may have been "brought forward" into today's note. My signature on this note, however, is an attestation that I personally performed the exam, history, and/or decision-making noted today, and, unless otherwise indicated, the interactions with patient, family, and staff as well as the review of records all occurred today. I also attest that the listed assessment and stated plan reflect my best clinical judgment today based on the combination of historical information, prior notes, and today's exam/ interactions. When time spent is documented, it refers only to time spent today by the signer, or if indicated, combined time spent today by collaborating physician/nurse practitioner.
[2018-10-21] MEDS ORDERED: Pharmacy Ordered Lab Info OTHER ONE (19:45)
[2018-10-21] MEDS: Vancomycin Inj 1,250 MG in Sodium Chlor 0.9% Inj 250 ML IV.SIG SCH (20:39)
[2018-10-22 04:02] LABS: Hematocrit 39.4 % (35.0-46.0); Lymph # (Auto) 0.3 th/mm3 (1.0-4.8); Lymph % (Auto) 2.7 % (9.0-44.0); Mean Corpuscular HGB Conc 33.1 % (32.0-36.0); Mean Corpuscular Volume 99.6 fL (80.0-100.0); Mean Platelet Volume 9.1 fL (7.0-11.0); Mono # (Auto) 0.7 th/mm3 (0.0-0.9); Neut # (Auto) 10.3 th/mm3 (1.8-7.7); Neut % (Auto) 91.3 % (16.0-70.0); Platelet Count 236 th/mm3 (150-450); Red Blood Count 3.95 mil/mm3 (4.00-5.30); Red Cell Distribution Width 16.9 % (11.6-17.2); White Blood Count 11.3 th/mm3 (4.0-11.0)
[2018-10-22 04:07] LABS: ABG Base Excess 5.2 mmol/L (-2-2); ABG PCO2 31 mmHg (38-42); ABG PO2 171 mmHG (61-120)
[2018-10-22 04:24] LABS: Calcium 8.7 mg/dL (8.5-10.1); Carbon Dioxide 29.4 meq/L (21.0-32.0); Magnesium 2.3 mg/dL (1.5-2.5); Phosphorus 2.2 mg/dL (2.5-4.9)
--- NOTE | 2018-10-22 04:42 | XR ---
EXAM DATE: 10/22/2018 4:40 AM EST AGE/SEX: 68 years / Female INDICATIONS: Shortness of breath, possible pulmonary disease. CLINICAL DATA: This is the patient's initial encounter. Patient reports that signs and symptoms have been present for 1 week and indicates a pain score of Nonresponsive. MEDICAL/SURGICAL HISTORY: Chronic obstructive pulmonary disease. Gastroesophageal reflux disea se. Hypertension. A-fib. None. COMPARISON: [facility], CHEST 1V SINGLE AP, 10/21/2018. . FINDINGS: Endotracheal tube is present with tip 4-5 cm above the prince. Nasogastric tube descends into the sto mach. Aeration is improved with decrease in confluence of bibasilar pleural-parenchymal opacities. Ca rdiac contours are unchanged CONCLUSION: Improved aeration Electronically signed by: Satya Garcia MD Board Certified Radiologist 10/22/2018 4:41 AM EST
[2018-10-22] MEDS: Chlorhexidine Gluconate 2% 1 Pack (2 Cloths) TOPICAL SCH (04:46)
[2018-10-22] MEDS: Oral Hygiene Kit OROPHARYNG SCH ×3 (04:46→17:10)
[2018-10-22] MEDS: MethylPREDNISolone Sod Succinate Inj 40 MG/ML Vial IV.PUSH SCH ×3 (06:13→22:15)
[2018-10-22] MEDS: Insulin NovoLOG Aspart Correctional Sugar Inj SQ SCH ×3 (06:13→17:49)
[2018-10-22] MEDS: fentaNYL 10 mcg/mL Premix Drip 2,500 MCG/250 ML BAG IV.SIG PRN (06:23)
--- NOTE | 2018-10-22 07:46 | P.PNCC ---
Subjective Subjective Remarks/Hospital Course: 10/19: FiO2 requirements decreased to 50%. CPAP trials initiated early this a.m.. ETT retracted 2cm, due to chest x-ray results ,to 21cm. On daily sedation vacation GCS 11 T. She has periods of agitation she remains on low- dose Versed at 1 mg fentanyl at 100 mics currently on CPAP trials. 10/20: Afebrile .GCS 11 T off sedation. Methylprednisolone initiated yesterday chest x-ray revealing slight improvement in irrigation today. Pulmonology consult pending appreciate recommendations . Patient normally utilizes home O2 3-4 L via nasal cannula . IV fluids discontinued last night noted rales in lung bases. Tube feeds to be initiated today. The patient continues on empiric antibiotics, influenza A/B pending. FiO2 requirements increased last night to 70% with noted ABG PaO2 of 57. Patient failed CPAP trials yesterday. 10/21: The patient's respiratory status continued to deteriorate. The patient was transferred to [facility], FIO2 75%. Overnight the patient ventilator management changed to Biphasic mode.Repeat ABG pending this afternoon. Tube feeds reinitiated. CTA noted no PE, US chest showed minimal pleural effusions. Eliquis restarted. 10/22: Noted decrease FiO2 requirements in the last 24hrs. Patient's chest x- ray shows improvement patient continues on biphasic mode , FiO2 now down to 40% . The patient converted into A. fib RVR yesterday heart rate in the 120s patient continued on metoprolol and amiodarone home medications digoxin 250 mics x1 dose was given. Patient now rate controlled. A family meeting was convened yesterday midmorning discussion with family and daughter and grandchildren request made to change CODE STATUS to DNR. Palliative care was consulted and case was discussed with Ms. Ivelisse Perez. Per family's reporting the patient was a DNR in the [facility] visiting [place], and has been was not able to make that decision emergently and proceeded with intubation in the ED. the patient's CODE STATUS was changed to DNR. Creatinine noted to be elevated most likely secondary to CTA and Lasix for diuresis. Lasix now placed on hold. Objective Vital Signs / I&O: Vital Signs 10/21/18 07:32 10/21/18 07:40 10/21/18 07:45 Temperature Pulse Rate 125 H 119 H Respiratory Rate 10 L 14 Blood Pressure 114/56 L Pulse Oximetry 100 99 10/21/18 08:00 10/21/18 08:31 10/21/18 09:00 Temperature 97.9 F Pulse Rate 115 H 117 H 119 H Respiratory Rate 12 11 L 14 Blood Pressure 97/53 L 101/65 98/52 L Pulse Oximetry 98 100 100 10/21/18 09:30 10/21/18 10:00 10/21/18 10:30 Temperature Pulse Rate 123 H 126 H 122 H Respiratory Rate 13 10 L 10 L Blood Pressure 98/67 L 107/65 98/54 L Pulse Oximetry 99 98 98 10/21/18 11:00 10/21/18 11:14 10/21/18 11:21 Temperature Pulse Rate 124 H 126 H Respiratory Rate 10 L 10 L 15 Blood Pressure 93/55 L Pulse Oximetry 98 98 10/21/18 11:30 10/21/18 12:00 10/21/18 12:11 Temperature Pulse Rate 121 H 122 H 117 H Respiratory Rate 10 L 10 L 10 L Blood Pressure 91/61 L 116/73 Pulse Oximetry 98 99 98 10/21/18 13:00 10/21/18 13:15 10/21/18 13:30 Temperature Pulse Rate 120 H 126 H 125 H Respiratory Rate 10 L 10 L 10 L Blood Pressure 117/65 99/66 L Pulse Oximetry 98 97 98 10/21/18 14:00 10/21/18 15:00 10/21/18 15:15 Temperature 97.8 F Pulse Rate 115 H 123 H 128 H Respiratory Rate 10 L 10 L 10 L Blood Pressure 99/71 L 85/59 L Pulse Oximetry 98 98 10/21/18 16:00 10/21/18 16:30 10/21/18 16:46 Temperature 98 F Pulse Rate 119 H 119 H Respiratory Rate 10 L 11 L 10 L Blood Pressure 102/62 108/68 Pulse Oximetry 97 98 99 10/21/18 17:00 10/21/18 17:43 10/21/18 18:00 Temperature Pulse Rate 113 H 120 H 110 H Respiratory Rate 10 L 10 L 10 L Blood Pressure 114/67 119/61 89/63 L Pulse Oximetry 97 98 98 10/21/18 20:00 10/21/18 20:22 10/21/18 21:00 Temperature 98.6 F Pulse Rate 109 H 94 H 122 H Respiratory Rate 12 27 H 14 Blood Pressure 121/63 95/54 L Pulse Oximetry 98 98 10/21/18 22:00 10/21/18 23:00 10/22/18 00:00 Temperature 98.8 F Pulse Rate 113 H 118 H 99 H Respiratory Rate 12 13 14 Blood Pressure 103/77 115/77 118/63 Pulse Oximetry 99 99 97 10/22/18 00:20 10/22/18 00:21 10/22/18 01:00 Temperature Pulse Rate 119 H 113 H Respiratory Rate 14 12 12 Blood Pressure 116/64 Pulse Oximetry 98 97 10/22/18 02:00 10/22/18 03:00 10/22/18 04:00 Temperature 99.0 F Pulse Rate 98 H 92 H 86 Respiratory Rate 12 10 L 10 L Blood Pressure 105/63 100/73 125/62 Pulse Oximetry 97 92 L 100 10/22/18 04:34 10/22/18 05:00 10/22/18 06:00 Temperature Pulse Rate 121 H 99 H 106 H Respiratory Rate 10 L 10 L 10 L Blood Pressure 100/61 115/71 Pulse Oximetry 98 98 98 Intake & Output 10/21/18 10/22/18 10/22/18 18:59 06:59 18:59 Intake Total 952 / 952 1359.5 / 1359.5 Output Total 125 / 125 275 / 275 Balance 827 / 827 1084.5 / 1084.5 Weight 116.4 kg Intake: IV 800 / 800 752.5 / 752.5 Versed Inj 100 mg In 100 ml @ 2 100 / 100 140 / 140 MG/HR 2 mls/hr IV.CONT TITRATE PRN Rx#:[id number] Azithromycin Inj 500 MG In NS 250 / 250 Inj 250 ML @ 250 mls/hr IV.SIG Q24H MERE Rx#:[id number] Maxipime Inj 1,000 MG In NS Inj 200 / 200 100 / 100 100 ML @ 200 mls/hr IV.SIG Q8H MERE Rx#:[id number] Vancomycin Inj 1,250 MG In NS 262.5 / 262.5 Inj 250 ML @ 250 mls/hr IV.SIG Q24H MERE Rx#:[id number] [id number] 10 mcg/mL Premix Drip 250 / 250 250 / 250 2,500 mcg In 250 ml @ 50 MCG/HR 5 mls/hr IV.SIG TITRATE PRN Rx #:[id number] Tube Feeding 92 / 92 507 / 507 Tube Irrigant 60 / 60 100 / 100 Output: Urine Amount (Catheter) 125 / 125 275 / 275 Indwelling Urethral Catheter 125 / 125 275 / 275 Result Diagrams: 10/22/18 03:25 10/22/18 03:25 Other Results: Laboratory Results CBC w Diff Auto diff final 10/20/18 04:53 WBC 11.3 th/mm3 (4.0-11.0) H 10/22/18 03:25 RBC 3.95 mil/mm3 (4.00-5.30) L 10/22/18 03:25 Hgb 13.0 gm/dL (11.6-15.3) 10/22/18 03:25 Hct 39.4 % (35.0-46.0) 10/22/18 03:25 MCV 99.6 fL (80.0-100.0) 10/22/18 03:25 MCH 33.0 pg (27.0-34.0) 10/22/18 03:25 MCHC 33.1 % (32.0-36.0) 10/22/18 03:25 RDW 16.9 % (11.6-17.2) 10/22/18 03:25 Plt Count 236 th/mm3 (150-450) 10/22/18 03:25 MPV 9.1 fL (7.0-11.0) 10/22/18 03:25 Neut % (Auto) 91.3 % (16.0-70.0) H 10/22/18 03:25 Lymph % (Auto) 2.7 % (9.0-44.0) L 10/22/18 03:25 Nobles % (Auto) 6.0 % (0.0-8.0) 10/22/18 03:25 Eos % (Auto) 0.0 % (0.0-4.0) 10/22/18 03:25 Baso % (Auto) 0.0 % (0.0-2.0) 10/22/18 03:25 Neut # (Auto) 10.3 th/mm3 (1.8-7.7) H 10/22/18 03:25 Lymph # (Auto) 0.3 th/mm3 (1.0-4.8) L 10/22/18 03:25 Nobles # (Auto) 0.7 th/mm3 (0.0-0.9) 10/22/18 03:25 Eos # (Auto) 0.0 th/mm3 (0.0-0.4) 10/22/18 03:25 Baso # (Auto) 0.0 th/mm3 (0.0-0.2) 10/22/18 03:25 WBC Differential . 10/22/18 03:25 Differential Comment Auto diff final 10/22/18 03:25 PT 13.0 sec (9.8-11.6) H 10/19/18 04:35 INR 1.3 Ratio 10/19/18 04:35 APTT 26.1 sec (23.4-31.7) 10/18/18 09:30 Puncture Site Right radial 10/22/18 03:53 Patient Temperature 98.6 10/22/18 03:53 O2 Saturation 97 % (90-100) 10/22/18 03:53 ABG pH 7.57 (7.380-7.420) H* 10/22/18 03:53 ABG pCO2 31 mmHg (38-42) L 10/22/18 03:53 ABG pO2 171 mmHG (61-120) H 10/22/18 03:53 ABG HCO3 28 mmol/L (22-26) H 10/22/18 03:53 ABG O2 Content 17.9 Vol % (12.0-20.0) 10/22/18 03:53 ABG Base Excess 5.2 mmol/L (-2-2) H 10/22/18 03:53 ABG Methemoglobin 1.4 % (0-2) 10/22/18 03:53 Josse Test Present 10/22/18 03:53 Hemoglobin 12.9 G/DL (12.0-16.0) 10/22/18 03:53 Carboxyhemoglobin 1.1 % (0-4) 10/22/18 03:53 O2 Delivery Device Ventilator 10/22/18 03:53 Liter Flow 3.00 L/M 10/18/18 10:00 Vent Setting Aprv/bi 10/22/18 03:53 Inspired O2 40 % 10/22/18 03:53 Critical Value Yes 10/22/18 03:53 Sodium 150 meq/L (136-145) H 10/22/18 03:25 Potassium 4.0 meq/L (3.5-5.1) 10/22/18 03:25 Chloride 111 meq/L (98-107) H 10/22/18 03:25 Carbon Dioxide 29.4 meq/L (21.0-32.0) 10/22/18 03:25 Anion Gap 10 meq/L (5-15) 10/22/18 03:25 BUN 72 mg/dL (7-18) H 10/22/18 03:25 Creatinine 1.67 mg/dL (0.50-1.00) H 10/22/18 03:25 Estimated GFR 30 mL/min (>89) L 10/22/18 03:25 POC Glucose 212 mg/dl (68-110) H 10/22/18 06:05 Random Glucose 231 mg/dL (74-106) H 10/22/18 03:25 Hemoglobin A1c 7.0 % (4.3-6.0) H 10/18/18 14:38 Lactic Acid 1.7 mmol/L (0.4-2.0) 10/19/18 04:35 Calcium 8.7 mg/dL (8.5-10.1) 10/22/18 03:25 Phosphorus 2.2 mg/dL (2.5-4.9) L 10/22/18 03:25 Magnesium 2.3 mg/dL (1.5-2.5) 10/22/18 03:25 Total Bilirubin 0.7 mg/dL (0.2-1.0) 10/19/18 04:35 Direct Bilirubin 0.3 mg/dL (0.0-0.2) H 10/18/18 14:38 Indirect Bilirubin 0.4 mg/dL (0.0-0.8) 10/18/18 14:38 AST 27 U/L (15-37) 10/19/18 04:35 ALT 33 U/L (10-53) 10/19/18 04:35 Alkaline Phosphatase 113 U/L (45-117) 10/19/18 04:35 Ammonia 44 mcmol/L (11-32) H 10/18/18 14:38 Total Creatine Kinase 51 U/L (26-192) 10/18/18 14:38 Troponin I 0.03 ng/mL (0.02-0.05) 10/18/18 09:30 Total Protein 7.0 g/dL (6.4-8.2) 10/19/18 04:35 Albumin 2.6 g/dL (3.4-5.0) L 10/19/18 04:35 Triglycerides 91 mg/dL (42-150) 10/20/18 04:53 Cholesterol 87 mg/dL (120-200) L 10/20/18 04:53 LDL Cholesterol, Calc 31 mg/dL (0-99) 10/20/18 04:53 HDL Cholesterol 37.9 mg/dL (40.0-60.0) L 10/20/18 04:53 Cholesterol/HDL Ratio 2.29 Ratio 10/20/18 04:53 TSH 1.420 uIU/mL (0.358-3.740) 10/18/18 14:38 Thyroxine (T4) 10.7 mcg/dL (4.8-13.9) 10/18/18 14:38 Urine Color Yellow (Yellw/Straw) 10/18/18 13:57 Urine Clarity Clear (Clear) 10/18/18 13:57 Urine pH 6.0 (5.0-8.5) 10/18/18 13:57 Ur Specific [place] 1.020 (1.002-1.035) 10/18/18 13:57 Urine Protein Negative mg/dL (Neg-Trace) 10/18/18 13:57 Urine Glucose (UA) Negative mg/dL (Negative) 10/18/18 13:57 Urine Ketones Negative mg/dL (Negative) 10/18/18 13:57 Urine Occult Blood Negative (Negative) 10/18/18 13:57 Urine Nitrate Negative (Negative) 10/18/18 13:57 Urine Bilirubin Negative (Negative) 10/18/18 13:57 Urine Urobilinogen 0.2 mg/dL (Less than 2) 10/18/18 13:57 Ur Leukocyte Esterase Negative (Negative) 10/18/18 13:57 Urine RBC 0-3 /hpf (0-3) 10/18/18 13:57 Urine WBC 0-5 /hpf (0-5) 10/18/18 13:57 Ur Squamous Epith Cells 0-5 /hpf (0-5) 10/18/18 13:57 Hyaline Casts 0-3 /lpf (0-3) 10/18/18 13:57 Micro UA Comment Culture not ind 10/18/18 13:57 Ur Microscopic Review Microscopic reviewed 10/18/18 13:57 Urine Culture Comments Culture not ind 10/18/18 13:57 Nasal Screen MRSA (PCR) Not detected (Negative) 10/18/18 13:49 Vancomycin Trough 18.8 mcg/mL (5.0-10.0) H 10/21/18 20:30 Random Vancomycin 11.9 Comment 10/19/18 04:35 Adenovirus (PCR) Not detected (Not Detect) 10/18/18 14:45 Bordetella holmesii PCR Not detected (Not Detect) 10/18/18 14:45 B. pertussis DNA (PCR) Not detected (Not Detect) 10/18/18 14:45 B. paraper/bronch (PCR) Not detected (Not Detect) 10/18/18 14:45 Human Metapneumovir PCR Not detected (Not Detect) 10/18/18 14:45 Influenza A (RT-PCR) Not detected (Not Detect) 10/18/18 14:45 Influenza A (H1) PCR Not detected (Not Detect) 10/18/18 14:45 Influenza A (H3) PCR Not detected (Not Detect) 10/18/18 14:45 Influenza B (RT-PCR) Not detected (Not Detect) 10/18/18 14:45 Parainfluenza 1 (PCR) Not detected (Not Detect) 10/18/18 14:45 Parainfluenza 2 (PCR) Not detected (Not Detect) 10/18/18 14:45 Parainfluenza 3 (PCR) Not detected (Not Detect) 10/18/18 14:45 Parainfluenza 4 (PCR) Not detected (Not Detect) 10/18/18 14:45 RSV Type A (PCR) Not detected (Not Detect) 10/18/18 14:45 RSV Type B (PCR) Not detected (Not Detect) 10/18/18 14:45 Rhinovirus (PCR) Not detected (Not Detect) 10/18/18 14:45 Impressions Abdomen X-Ray 10/18/18 00:00 CONCLUSION: Tip of the NG tube just past the GE junction. Venous Doppler Study 10/18/18 10:59 CONCLUSION: 1. The study is negative for bilateral lower extremity deep venous thrombosis. Head CT 10/18/18 14:32 CONCLUSION: 1. No acute intracranial abnormality. . Chest CTA 10/20/18 00:00 CONCLUSION: 1. The study is negative for pulmonary embolism. 2. Bilateral lower lung consolidation and pleural effusions, right greater than left. Chest Ultrasound 10/21/18 00:00 CONCLUSION: 1. Trace pleural effusion on the right. Chest X-Ray 10/22/18 04:00 CONCLUSION: Improved aeration Objective Remarks: GENERAL: This is a well-developed well-nourished morbidly obese female currently intubated and sedated SKIN: Warm and dry. Skin integrity intact HEAD: Atraumatic. Normocephalic. EYES: Pupils equal and round. EOMI. No scleral icterus. No injection or drainage. ENT: No nasal bleeding or discharge. Mucous membranes pink and moist. NECK: Trachea midline. No JVD. CARDIOVASCULAR: Irregular rate irregular rhythm. Atrial fibrillation RESPIRATORY: No accessory muscle use. Clear to auscultation. Breath sounds equal bilaterally. GASTROINTESTINAL: Abdomen soft, non-tender, obese nondistended. No guarding. Normoactive bowel sounds MUSCULOSKELETAL: Extremities without clubbing, cyanosis, 1+ peripheral edema No obvious deformities. NEUROLOGICAL: RASS -2 No gross focal/sensory deficits. Follows commands in all 4 extremities. GCS 11T on sedation vacation Assessment and Plan - Problem List (1) Tobacco use disorder Code(s): F17.200 - Nicotine dependence, unspecified, uncomplicated Status: Acute - Assessment and Plan Plan: Plan by systems: Neurologic: Continue Versed and fentanyl infusions currently at 2 mg/hour and 150 mics/hour to maintain ventilator synchrony Daily sedation vacation Neurochecks per ICU protocol 10/19 CT head negative Respiratory: Acute hypercapnic respiratory failure Acute on chronic COPD exacerbation Tobacco use disorder Pneumonia B/L Pleural Effusions Maintain O2 sat greater than 92% Ventilator bundle Currently patient is on FiO2 of 70% with a PEEP of 10, continue to wean as tolerated Reinitiate CPAP trials when clinically indicated and less FiO2 requirement Chest x-rayslight improvement in aeration Vent management Biphasic mode Thi 5.2, PHi 32 T low 0.8 PSV 5 FIO2 40% Duo nebs every 4 hours scheduled and every 2 hours as needed Plan for smoking cessation counseling post extubation Continue Solu-Medrol 40 every 8hrs Patient has home O2 dependency ranging 3-4 LPM, per report of family Pulmonology following Nicotine patch medium dose 10/21 chest right effusion 125cc, left effusion 85cc 10/20- CTA no Pulm Embolus Cardiovascular: Cardiomegaly Chronic atrial fibrillation H/O HTN H/O CABG Continue amiodarone 200 mg/day, aspirin 81 mg/day, metoprolol 25 mg twice daily (with parameters only), and Eliquis 5 mg twice daily Home dosing Lasix 40 mg twice daily, placed on hold Monitor QT interval-patient currently on azithromycin and home dose amiodarone 10/20 ECHO results- EF40-45%, RV mildly dilated Renal: SAMIRA Insert Branch strict I and O-being monitored currently on diuretics -- Strict I/Os FEN/GI: Obesity Protein calorie malnutrition Albumin 3.0 Begin tube feedings Zofran for nausea Famotidine for GI prophylaxis Resume atorvastatin Heme/ID: Pneumonia 10/19 blood, urine, sputum cultures- NGTD influenza A/B- Neg strep pneumo antigen 10/18 respiratory panel- NGTD Monitor CBC Initiate empiric antibiotics cefepime, azithromycin, and vancomycin(day 5) Endocrine: Hyperglycemia of critical illness Glucose monitoring per ICU protocol, increased to high-dose regimen Hemoglobin A1c 7.0 on admission -- SSI Prophylaxis: GI Prophylaxis Famotidine DVT Prophylaxis -- SCDs Patient on Eliquis 5 mg twice daily Lines: Of IVs x2. Central line if indicated My billing statement This patient remains critically ill with one or more organ systems which are or may become a threat to life. I have spent in excess of 35 minutes discontinuously in the care and management of this patient. This time is exclusive of procedures, and includes, but is not limited to, evaluation of the patient, review of the medical record, discussions with family, consultants, nursing staff, or respiratory therapy, and documentation in the medical record. Palliative care has been consulted. Plan per family( and daughter) is for patient to remain DNR status and plan for ventilator withdrawal tentatively on Friday if unable to extubate, due to family's request that the patient never wanted to be intubated. We will follow up recommendations from family and palliative care. Code Status: DNR Discussed Condition With: No family at bedside. TONG HOOKER at bedside.
[2018-10-22] MEDS: Chlorhexidine 0.12% Oral Kit 15 ML UDC OROPHARYNG SCH ×2 (08:16→20:14)
[2018-10-22] MEDS: Famotidine PF Inj 20 MG/2 ML Vial IV.PUSH SCH ×2 (08:16→20:15)
[2018-10-22] MEDS: Amiodarone 200 MG Tablet PO SCH (08:17)
[2018-10-22] MEDS: Metoprolol Tartrate 25 MG Tablet PO SCH ×2 (08:17→20:14)
[2018-10-22] MEDS: Famotidine 20 MG Tablet PO SCH ×2 (08:17→20:15)
[2018-10-22] MEDS: Senna/Docusate Sodium 8.6/50 MG Tablet PO SCH ×2 (08:17→20:15)
--- NOTE | 2018-10-22 10:03 | P.PNPL ---
Subjective Interval history: Patient remains sedated with Versed, Fentnayl and intubated. CXR today improved aeration of lungs. On Biphasic mode with 40% FIO2. Physical Exam Vital signs: Vital Signs 10/21/18 10:00 10/21/18 10:30 10/21/18 11:00 Temperature Pulse Rate 126 H 122 H 124 H Respiratory Rate 10 L 10 L 10 L Blood Pressure 107/65 98/54 L 93/55 L Pulse Oximetry 98 98 98 10/21/18 11:14 10/21/18 11:21 10/21/18 11:30 Temperature Pulse Rate 126 H 121 H Respiratory Rate 10 L 15 10 L Blood Pressure 91/61 L Pulse Oximetry 98 98 10/21/18 12:00 10/21/18 12:11 10/21/18 13:00 Temperature Pulse Rate 122 H 117 H 120 H Respiratory Rate 10 L 10 L 10 L Blood Pressure 116/73 Pulse Oximetry 99 98 98 10/21/18 13:15 10/21/18 13:30 10/21/18 14:00 Temperature Pulse Rate 126 H 125 H 115 H Respiratory Rate 10 L 10 L 10 L Blood Pressure 117/65 99/66 L 99/71 L Pulse Oximetry 97 98 98 10/21/18 15:00 10/21/18 15:15 10/21/18 16:00 Temperature 97.8 F 98 F Pulse Rate 123 H 128 H 119 H Respiratory Rate 10 L 10 L 10 L Blood Pressure 85/59 L 102/62 Pulse Oximetry 98 97 10/21/18 16:30 10/21/18 16:46 10/21/18 17:00 Temperature Pulse Rate 119 H 113 H Respiratory Rate 11 L 10 L 10 L Blood Pressure 108/68 114/67 Pulse Oximetry 98 99 97 10/21/18 17:43 10/21/18 18:00 10/21/18 20:00 Temperature 98.6 F Pulse Rate 120 H 110 H 109 H Respiratory Rate 10 L 10 L 12 Blood Pressure 119/61 89/63 L 121/63 Pulse Oximetry 98 98 98 10/21/18 20:22 10/21/18 21:00 10/21/18 22:00 Temperature Pulse Rate 94 H 122 H 113 H Respiratory Rate 27 H 14 12 Blood Pressure 95/54 L 103/77 Pulse Oximetry 98 99 10/21/18 22:30 10/21/18 23:00 10/21/18 23:30 Temperature Pulse Rate 104 H 118 H 114 H Respiratory Rate 11 L 10 L 10 L Blood Pressure 119/80 115/72 121/67 Pulse Oximetry 98 99 99 10/22/18 00:00 10/22/18 00:20 10/22/18 00:21 Temperature 98.8 F Pulse Rate 99 H 119 H Respiratory Rate 10 L 14 12 Blood Pressure 118/63 Pulse Oximetry 97 98 10/22/18 00:31 10/22/18 01:00 10/22/18 01:30 Temperature Pulse Rate 107 H 113 H 115 H Respiratory Rate 10 L 10 L 10 L Blood Pressure 140/62 116/64 114/59 L Pulse Oximetry 98 97 97 10/22/18 02:00 10/22/18 02:30 10/22/18 03:00 Temperature 99.0 F Pulse Rate 98 H 114 H 92 H Respiratory Rate 10 L 10 L 10 L Blood Pressure 105/63 112/54 L 100/73 Pulse Oximetry 97 97 97 10/22/18 03:30 10/22/18 04:00 10/22/18 04:01 Temperature Pulse Rate 95 H 86 99 H Respiratory Rate 10 L 10 L 13 Blood Pressure 111/59 L 125/62 125/62 Pulse Oximetry 96 100 99 10/22/18 04:30 10/22/18 04:34 10/22/18 05:00 Temperature Pulse Rate 100 H 121 H 99 H Respiratory Rate 10 L 10 L 10 L Blood Pressure 93/67 L 100/61 Pulse Oximetry 97 98 98 10/22/18 05:30 10/22/18 06:00 10/22/18 06:31 Temperature Pulse Rate 104 H 106 H 92 H Respiratory Rate 10 L 10 L 10 L Blood Pressure 108/62 115/71 74/51 L Pulse Oximetry 98 98 99 10/22/18 06:32 10/22/18 07:00 10/22/18 07:01 Temperature Pulse Rate 96 H 100 H 99 H Respiratory Rate 11 L 10 L 10 L Blood Pressure 86/67 L 134/72 Pulse Oximetry 99 99 99 10/22/18 07:28 10/22/18 07:30 10/22/18 08:00 Temperature 98.2 F Pulse Rate 86 91 H 90 Respiratory Rate 10 L 10 L 10 L Blood Pressure 120/68 109/62 Pulse Oximetry 99 99 99 10/22/18 08:30 10/22/18 09:00 10/22/18 09:30 Temperature Pulse Rate 105 H 99 H 96 H Respiratory Rate 10 L 10 L 10 L Blood Pressure 104/58 L 113/58 L 113/68 Pulse Oximetry 99 99 99 Intake & Output 10/21/18 10/22/18 10/22/18 18:59 06:59 18:59 Intake Total 952 / 952 1359.5 / 1359.5 100 / 100 Output Total 125 / 125 275 / 275 Balance 827 / 827 1084.5 / 1084.5 100 / 100 Weight 116.4 kg Intake: IV 800 / 800 752.5 / 752.5 100 / 100 Versed Inj 100 mg In 100 ml @ 2 100 / 100 140 / 140 MG/HR 2 mls/hr IV.CONT TITRATE PRN Rx#:[id number] Azithromycin Inj 500 MG In NS 250 / 250 Inj 250 ML @ 250 mls/hr IV.SIG Q24H MERE Rx#:[id number] Maxipime Inj 1,000 MG In NS Inj 200 / 200 100 / 100 100 / 100 100 ML @ 200 mls/hr IV.SIG Q8H MERE Rx#:[id number] Vancomycin Inj 1,250 MG In NS 262.5 / 262.5 Inj 250 ML @ 250 mls/hr IV.SIG Q24H MERE Rx#:[id number] 10 mcg/mL Premix Drip 250 / 250 250 / 250 2,500 mcg In 250 ml @ 50 MCG/HR 5 mls/hr IV.SIG TITRATE PRN Rx #:[id number] Tube Feeding 92 / 92 507 / 507 Tube Irrigant 60 / 60 100 / 100 Output: Urine Amount (Catheter) 125 / 125 275 / 275 Indwelling Urethral Catheter 125 / 125 275 / 275 - Constitutional no acute distress, obese - Routine HEENT Exam Head: Present: normocephalic, atraumatic Eye: Present: EOMI, PERRL, normal accommodation, conjunctivae pink ENT: Present: mucous membranes moist - Routine Neck Exam Present: supple, full ROM, trachea midline - Routine Respiratory Exam Present: patient mechanically ventilated, CTA bilaterally - Routine Cardiovascular Exam Present: RRR, S1, S2 - Routine Abdominal Exam Present: soft, normoactive bowel sounds - Routine Extremities Exam Present: pulses intact - Routine Neurological Exam Present: altered mental status - Urinary Catheter Management Indwelling Urethral Catheter Cath placed during this visit: yes Reason for continuing: Hourly intake/output Insertion date: 10/18/18 Assessment and Plan - Assessment (1) Tobacco use disorder Code(s): F17.200 - Nicotine dependence, unspecified, uncomplicated Status: Acute - Plan 1. Acute hypoxemic and hypercapnic respiratory failure. 2. Chronic obstructive pulmonary disease. 3. Hypertension. 4. Chronic atrial fibrillation. 5. Obesity. 6. Gastroesophageal reflux disease. 7. Mild left ventricular dysfunction with ejection fraction 40%-45%. Plan On Versed and Fentanyl infusion for sedation. Daily sedation vacation when appropriate. Continue with vent support and maintain sats above 92%. Bronchodilators. Solu-Medrol 40 mg IV every 8 hours. Change vent to PRVC mode RR 18, TV 500, It:1.0, PEEP:5 and FIO2: 40%. Check ABG in 1hr. CXR today- improved aeration of lungs CTA chest 10/20: No PE< bibasilar consolidation with small pleural effusion. Doppler US LE negative for DVT. Echo: 10/19 :moderately decreased RV systolic function with EF of 40%-45% and moderate pulmonary hypertension with a PA pressure of 54 mmHg. Abx- on cefepime, Vanco and azithromycin. Monitor for signs of infection, d/c vanco ( BC 10/18; NGTD) Sputum cx: normal resp dylan, strep pneumonia legionella urinary Ag, Influenza screening, BC all negative Nutrition support- on tube feeds- Glucerna 1.5. GI/DVT prophylaxis. on Pepcid and Eliquis respectively. Continue treatment plan.
[2018-10-22] MEDS: Dexmedetomidine Inj 200 MCG in Sodium Chlor 0.9% Inj 48 ML IV.CONT PRN ×3 (11:31→17:49)
--- NOTE | 2018-10-22 11:58 | P.PNPAL ---
Reason for Visit Reason for visit: a. To assist with evaluation and management of symptoms including: dyspnea, pain. b. To assist medical decision maker(s) with: better understanding of current medical conditions; weighing benefits/burdens of medical treatment options; making medical treatment decisions. Subjective Subjective/Interval History: Mrs. Christianson is a 68-year-old female with past medical history of oxygen dependent COPD, GERD, atrial fibrillation, hypertension, coronary artery disease s/p CABG and stent placements, carotid artery stenosis, prior lung mass nondiagnostic biopsy. Patient was recently admitted to the hospital in [place] in August for respiratory distress, she was discharged to rehab, the day following rehab she and her family came to [place]. Patient seen for follow-up of medically necessary visit to evaluate symptom management dyspnea and pain and provide support to the family for goals of medical treatment. Patient remains on ventilator, followed by radiation safety officer medicine and pulmonary support. Vent was changed from bilevel to PRVC mode today at 18/500/1.0/5/40%. Subsequent blood gas showed pH 7.57, PCO2 31, PaO2 171, bicarbonate 28, base excess +5.2 on 40%, APRV/bi. At this evaluation she is on PRVC/AC mode on settings 18/500/5/40 percent, saturating 88% on pulse ox. RN discussed with respiratory who increased the FiO2 to 50%. Patient saturating 96% at end of visit. She remains on fentanyl 150 mcg/h and Versed 5 mg/h for vent synchrony and patient comfort. Discussed with family and Dr. Grullon the weaning plan to attempt to transition patient to Precedex today with CPAP trial later in the afternoon with possible attempt to medically extubate tomorrow versus withdrawal of life support. As chest x-ray shows improvement today the family is in favor of trying to medically extubate without the possibility of reintubation, should she fail. . Family/Friend Interactions: Spoke with , Dc, and daughter, Eula Lackey RN, at bedside and provided medical update. Discussed with Dr. Grullon the plan for today and held joint meeting with family for update. Family remains committed to withdrawal of life support if she is unable to be medically extubated in the next 24-48 hours. They are, however, in favor of continuing aggressive treatment to attempt medical extubation by tomorrow, but states they will not reintubate if she fails. Discussed the use of Precedex with the daughter, Eula, and provided information regarding the pharmacology. Spoke with Dr. Grullon in room with family to confirm plan and update and provide family support. . Advance Directives Health Care Surrogate Name and Number: Health Care Proxy: spouse, Dc Daviser : [phone] Objective Vital Signs: Vital Signs 10/21/18 12:00 10/21/18 12:11 10/21/18 13:00 Temperature Pulse Rate 122 H 117 H 120 H Respiratory Rate 10 L 10 L 10 L Blood Pressure 116/73 Pulse Oximetry 99 98 98 10/21/18 13:15 10/21/18 13:30 10/21/18 14:00 Temperature Pulse Rate 126 H 125 H 115 H Respiratory Rate 10 L 10 L 10 L Blood Pressure 117/65 99/66 L 99/71 L Pulse Oximetry 97 98 98 10/21/18 15:00 10/21/18 15:15 10/21/18 16:00 Temperature 97.8 F 98 F Pulse Rate 123 H 128 H 119 H Respiratory Rate 10 L 10 L 10 L Blood Pressure 85/59 L 102/62 Pulse Oximetry 98 97 10/21/18 16:30 10/21/18 16:46 10/21/18 17:00 Temperature Pulse Rate 119 H 113 H Respiratory Rate 11 L 10 L 10 L Blood Pressure 108/68 114/67 Pulse Oximetry 98 99 97 10/21/18 17:43 10/21/18 18:00 10/21/18 20:00 Temperature 98.6 F Pulse Rate 120 H 110 H 109 H Respiratory Rate 10 L 10 L 12 Blood Pressure 119/61 89/63 L 121/63 Pulse Oximetry 98 98 98 10/21/18 20:22 10/21/18 21:00 10/21/18 22:00 Temperature Pulse Rate 94 H 122 H 113 H Respiratory Rate 27 H 14 12 Blood Pressure 95/54 L 103/77 Pulse Oximetry 98 99 10/21/18 22:30 10/21/18 23:00 10/21/18 23:30 Temperature Pulse Rate 104 H 118 H 114 H Respiratory Rate 11 L 10 L 10 L Blood Pressure 119/80 115/72 121/67 Pulse Oximetry 98 99 99 10/22/18 00:00 10/22/18 00:20 10/22/18 00:21 Temperature 98.8 F Pulse Rate 99 H 119 H Respiratory Rate 10 L 14 12 Blood Pressure 118/63 Pulse Oximetry 97 98 10/22/18 00:31 10/22/18 01:00 10/22/18 01:30 Temperature Pulse Rate 107 H 113 H 115 H Respiratory Rate 10 L 10 L 10 L Blood Pressure 140/62 116/64 114/59 L Pulse Oximetry 98 97 97 10/22/18 02:00 10/22/18 02:30 10/22/18 03:00 Temperature 99.0 F Pulse Rate 98 H 114 H 92 H Respiratory Rate 10 L 10 L 10 L Blood Pressure 105/63 112/54 L 100/73 Pulse Oximetry 97 97 97 10/22/18 03:30 10/22/18 04:00 10/22/18 04:01 Temperature Pulse Rate 95 H 86 99 H Respiratory Rate 10 L 10 L 13 Blood Pressure 111/59 L 125/62 125/62 Pulse Oximetry 96 100 99 10/22/18 04:30 10/22/18 04:34 10/22/18 05:00 Temperature Pulse Rate 100 H 121 H 99 H Respiratory Rate 10 L 10 L 10 L Blood Pressure 93/67 L 100/61 Pulse Oximetry 97 98 98 10/22/18 05:30 10/22/18 06:00 10/22/18 06:31 Temperature Pulse Rate 104 H 106 H 92 H Respiratory Rate 10 L 10 L 10 L Blood Pressure 108/62 115/71 74/51 L Pulse Oximetry 98 98 99 10/22/18 06:32 10/22/18 07:00 10/22/18 07:01 Temperature Pulse Rate 96 H 100 H 99 H Respiratory Rate 11 L 10 L 10 L Blood Pressure 86/67 L 134/72 Pulse Oximetry 99 99 99 10/22/18 07:28 10/22/18 07:30 10/22/18 08:00 Temperature 98.2 F Pulse Rate 86 91 H 90 Respiratory Rate 10 L 10 L 10 L Blood Pressure 120/68 109/62 Pulse Oximetry 99 99 99 10/22/18 08:30 10/22/18 09:00 10/22/18 09:30 Temperature Pulse Rate 105 H 99 H 96 H Respiratory Rate 10 L 10 L 10 L Blood Pressure 104/58 L 113/58 L 113/68 Pulse Oximetry 99 99 99 10/22/18 10:00 10/22/18 10:30 10/22/18 11:00 Temperature Pulse Rate 97 H 88 79 Respiratory Rate 18 18 18 Blood Pressure 123/60 107/54 L 106/58 L Pulse Oximetry 90 L 93 L 94 L Intake & Output 10/21/18 10/22/18 10/22/18 18:59 06:59 18:59 Intake Total 952 / 952 1359.5 / 1359.5 100 / 100 Output Total 125 / 125 275 / 275 Balance 827 / 827 1084.5 / 1084.5 100 / 100 Weight 256 lb 9.889 oz Intake: IV 800 / 800 752.5 / 752.5 100 / 100 Versed Inj 100 mg In 100 ml @ 2 100 / 100 140 / 140 MG/HR 2 mls/hr IV.CONT TITRATE PRN Rx#:[id number] Azithromycin Inj 500 MG In NS 250 / 250 Inj 250 ML @ 250 mls/hr IV.SIG Q24H MERE Rx#:[id number] Maxipime Inj 1,000 MG In NS Inj 200 / 200 100 / 100 100 / 100 100 ML @ 200 mls/hr IV.SIG Q8H MERE Rx#:[id number] Vancomycin Inj 1,250 MG In NS 262.5 / 262.5 Inj 250 ML @ 250 mls/hr IV.SIG Q24H MERE Rx#:[id number] 10 mcg/mL Premix Drip 250 / 250 250 / 250 2,500 mcg In 250 ml @ 50 MCG/HR 5 mls/hr IV.SIG TITRATE PRN Rx #:[id number] Tube Feeding 92 / 92 507 / 507 Tube Irrigant 60 / 60 100 / 100 Output: Urine Amount (Catheter) 125 / 125 275 / 275 Indwelling Urethral Catheter 125 / 125 275 / 275 Physical Exam: CONSTITUTIONAL/GENERAL: This is a morbidly obese female patient, sedated on [facility] vent. TUBES/LINES/DRAINS:ETT, OG, wrist restaints, IV, SCDs, Branch. SKIN: No jaundice, rashes, or lesions. Ecchymoses on upper extremities. No wounds seen anteriorly. Skin temperature appropriate. Not diaphoretic. HEAD: Atraumatic. Normocephalic. EYES: Pupils equal and round and reactive. ENT: Unable to assess hearing. Nose without bleeding or purulent drainage. Throat difficult to visualize secondary to tubes. NECK: Trachea midline. CARDIOVASCULAR: S1, S2, irregular rhythm, controlled rate, 2/6 systolic ejection murmur, no rub no gallop. RESPIRATORY/CHEST: On mechanical ventilation. Shallow distant breath sounds. No rhonchi or wheezes auscultated. GASTROINTESTINAL: Abdomen soft, protuberant. No guarding. Bowel sounds present. GENITOURINARY: Without palpable bladder distension. Branch catheter in place. MUSCULOSKELETAL: Extremities with edema. No mottling or clubbing. LYMPHATICS: No palpable cervical or supraclavicular adenopathy. NEUROLOGICAL: Sedated. PSYCHIATRIC: Sedated. . Diagnostic Tests Laboratory: Laboratory Results - last 72 hr 10/18/18 10/18/18 10/19/18 14:38 14:45 11:56 CBC w Diff WBC RBC Hgb Hct MCV MCH MCHC RDW Plt Count MPV Neut % (Auto) Lymph % (Auto) Maverick % (Auto) Eos % (Auto) Baso % (Auto) Neut # (Auto) Lymph # (Auto) Maverick # (Auto) Eos # (Auto) Baso # (Auto) WBC Differential Differential Comment Puncture Site Patient Temperature O2 Saturation ABG pH ABG pCO2 ABG pO2 ABG HCO3 ABG O2 Content ABG Base Excess ABG Methemoglobin Josse Test Hemoglobin Carboxyhemoglobin O2 Delivery Device Vent Setting Inspired O2 Critical Value Sodium Potassium Chloride Carbon Dioxide Anion Gap BUN Creatinine Estimated GFR POC Glucose 151 Random Glucose Hemoglobin A1c 7.0 H Calcium Phosphorus Magnesium Triglycerides Cholesterol LDL Cholesterol, Calc HDL Cholesterol Cholesterol/HDL Ratio Vancomycin Trough Adenovirus (PCR) Not detected Bordetella holmesii PCR Not detected B. pertussis DNA (PCR) Not detected B. paraper/bronch (PCR) Not detected Human Metapneumovir PCR Not detected Influenza A (RT-PCR) Not detected Influenza A (H1) PCR Not detected Influenza A (H3) PCR Not detected Influenza B (RT-PCR) Not detected Parainfluenza 1 (PCR) Not detected Parainfluenza 2 (PCR) Not detected Parainfluenza 3 (PCR) Not detected Parainfluenza 4 (PCR) Not detected RSV Type A (PCR) Not detected RSV Type B (PCR) Not detected Rhinovirus (PCR) Not detected 10/19/18 10/20/18 10/20/18 16:39 01:21 04:06 CBC w Diff WBC RBC Hgb Hct MCV MCH MCHC RDW Plt Count MPV Neut % (Auto) Lymph % (Auto) Maverick % (Auto) Eos % (Auto) Baso % (Auto) Neut # (Auto) Lymph # (Auto) Maverick # (Auto) Eos # (Auto) Baso # (Auto) WBC Differential Differential Comment Puncture Site Patient Temperature O2 Saturation ABG pH ABG pCO2 ABG pO2 ABG HCO3 ABG O2 Content ABG Base Excess ABG Methemoglobin Josse Test Hemoglobin Carboxyhemoglobin O2 Delivery Device Vent Setting Inspired O2 Critical Value Sodium Potassium Chloride Carbon Dioxide Anion Gap BUN Creatinine Estimated GFR POC Glucose 171 189 193 Random Glucose Hemoglobin A1c Calcium Phosphorus Magnesium Triglycerides Cholesterol LDL Cholesterol, Calc HDL Cholesterol Cholesterol/HDL Ratio Vancomycin Trough Adenovirus (PCR) Bordetella holmesii PCR B. pertussis DNA (PCR) B. paraper/bronch (PCR) Human Metapneumovir PCR Influenza A (RT-PCR) Influenza A (H1) PCR Influenza A (H3) PCR Influenza B (RT-PCR) Parainfluenza 1 (PCR) Parainfluenza 2 (PCR) Parainfluenza 3 (PCR) Parainfluenza 4 (PCR) RSV Type A (PCR) RSV Type B (PCR) Rhinovirus (PCR) 10/20/18 10/20/18 10/20/18 04:30 04:53 04:53 CBC w Diff Auto diff final WBC 9.0 RBC 3.71 L Hgb 12.0 Hct 37.0 MCV 99.8 MCH 32.4 MCHC 32.5 RDW 17.0 Plt Count 204 MPV 8.6 Neut % (Auto) 90.7 H Lymph % (Auto) 4.9 L Maverick % (Auto) 3.0 Eos % (Auto) 0.0 Baso % (Auto) 1.4 Neut # (Auto) 8.2 H Lymph # (Auto) 0.4 L Maverick # (Auto) 0.3 Eos # (Auto) 0.0 Baso # (Auto) 0.1 WBC Differential . Differential Comment . Puncture Site Right radial Patient Temperature 98.6 O2 Saturation 88 L* ABG pH 7.40 ABG pCO2 52 H* ABG pO2 57 L* ABG HCO3 32 H ABG O2 Content 15.0 ABG Base Excess 6.7 H ABG Methemoglobin 0.6 Josse Test Y Hemoglobin 12.1 Carboxyhemoglobin 1.4 O2 Delivery Device Ventilator Vent Setting Prvc/ac Inspired O2 60 Critical Value Yes Sodium 147 H Potassium 4.0 Chloride 109 H Carbon Dioxide 33.1 H Anion Gap 5 BUN 54 H Creatinine 1.30 H Estimated GFR 40 L POC Glucose Random Glucose 186 H Hemoglobin A1c Calcium 8.5 Phosphorus 2.9 Magnesium 1.9 Triglycerides Cholesterol LDL Cholesterol, Calc HDL Cholesterol Cholesterol/HDL Ratio Vancomycin Trough Adenovirus (PCR) Bordetella holmesii PCR B. pertussis DNA (PCR) B. paraper/bronch (PCR) Human Metapneumovir PCR Influenza A (RT-PCR) Influenza A (H1) PCR Influenza A (H3) PCR Influenza B (RT-PCR) Parainfluenza 1 (PCR) Parainfluenza 2 (PCR) Parainfluenza 3 (PCR) Parainfluenza 4 (PCR) RSV Type A (PCR) RSV Type B (PCR) Rhinovirus (PCR) 10/20/18 10/20/18 10/20/18 04:53 11:08 11:56 CBC w Diff WBC RBC Hgb Hct MCV MCH MCHC RDW Plt Count MPV Neut % (Auto) Lymph % (Auto) Maverick % (Auto) Eos % (Auto) Baso % (Auto) Neut # (Auto) Lymph # (Auto) Maverick # (Auto) Eos # (Auto) Baso # (Auto) WBC Differential Differential Comment Puncture Site Right radial Patient Temperature 98.6 O2 Saturation 92 ABG pH 7.44 H ABG pCO2 49 H ABG pO2 64 ABG HCO3 33 H ABG O2 Content 15.6 ABG Base Excess 8.2 H ABG Methemoglobin 0.3 Josse Test Present Hemoglobin 12.1 Carboxyhemoglobin 1.3 O2 Delivery Device Vent Vent Setting [id number] Inspired O2 80 Critical Value No Sodium Potassium Chloride Carbon Dioxide Anion Gap BUN Creatinine Estimated GFR POC Glucose 173 Random Glucose Hemoglobin A1c Calcium Phosphorus Magnesium Triglycerides 91 Cholesterol 87 L LDL Cholesterol, Calc 31 HDL Cholesterol 37.9 L Cholesterol/HDL Ratio 2.29 Vancomycin Trough Adenovirus (PCR) Bordetella holmesii PCR B. pertussis DNA (PCR) B. paraper/bronch (PCR) Human Metapneumovir PCR Influenza A (RT-PCR) Influenza A (H1) PCR Influenza A (H3) PCR Influenza B (RT-PCR) Parainfluenza 1 (PCR) Parainfluenza 2 (PCR) Parainfluenza 3 (PCR) Parainfluenza 4 (PCR) RSV Type A (PCR) RSV Type B (PCR) Rhinovirus (PCR) 10/20/18 10/21/18 10/21/18 17:49 00:26 03:23 CBC w Diff WBC 10.4 RBC 3.86 L Hgb 12.9 Hct 38.7 MCV 100.2 H MCH 33.4 MCHC 33.4 RDW 17.5 H Plt Count 224 MPV 8.4 Neut % (Auto) 92.4 H Lymph % (Auto) 3.7 L Maverick % (Auto) 3.8 Eos % (Auto) 0.0 Baso % (Auto) 0.1 Neut # (Auto) 9.6 H Lymph # (Auto) 0.4 L Maverick # (Auto) 0.4 Eos # (Auto) 0.0 Baso # (Auto) 0.0 WBC Differential . Differential Comment Auto diff final Puncture Site Patient Temperature O2 Saturation ABG pH ABG pCO2 ABG pO2 ABG HCO3 ABG O2 Content ABG Base Excess ABG Methemoglobin Josse Test Hemoglobin Carboxyhemoglobin O2 Delivery Device Vent Setting Inspired O2 Critical Value Sodium Potassium Chloride Carbon Dioxide Anion Gap BUN Creatinine Estimated GFR POC Glucose 191 H 166 H Random Glucose Hemoglobin A1c Calcium Phosphorus Magnesium Triglycerides Cholesterol LDL Cholesterol, Calc HDL Cholesterol Cholesterol/HDL Ratio Vancomycin Trough Adenovirus (PCR) Bordetella holmesii PCR B. pertussis DNA (PCR) B. paraper/bronch (PCR) Human Metapneumovir PCR Influenza A (RT-PCR) Influenza A (H1) PCR Influenza A (H3) PCR Influenza B (RT-PCR) Parainfluenza 1 (PCR) Parainfluenza 2 (PCR) Parainfluenza 3 (PCR) Parainfluenza 4 (PCR) RSV Type A (PCR) RSV Type B (PCR) Rhinovirus (PCR) 10/21/18 10/21/18 10/21/18 03:23 05:49 12:00 CBC w Diff WBC RBC Hgb Hct MCV MCH MCHC RDW Plt Count MPV Neut % (Auto) Lymph % (Auto) Maverick % (Auto) Eos % (Auto) Baso % (Auto) Neut # (Auto) Lymph # (Auto) Maverick # (Auto) Eos # (Auto) Baso # (Auto) WBC Differential Differential Comment Puncture Site Left radial Right radial Patient Temperature 98.6 98.6 O2 Saturation 97 98 ABG pH 7.46 H 7.58 H* ABG pCO2 46 H 31 L ABG pO2 130 H 226 H ABG HCO3 32 H 29 H ABG O2 Content 17.4 18.0 ABG Base Excess 8.1 H 6.4 H ABG Methemoglobin 1.4 1.2 Josse Test Present Present Hemoglobin 12.7 12.8 Carboxyhemoglobin 0.8 0.9 O2 Delivery Device Ventilator Ventilator Vent Setting Aprv/bi See comments Inspired O2 100 50 Critical Value No Yes Sodium 149 H Potassium 3.7 Chloride 109 H Carbon Dioxide 34.0 H Anion Gap 6 BUN 54 H Creatinine 1.13 H Estimated GFR 48 L POC Glucose Random Glucose 177 H Hemoglobin A1c Calcium 8.6 Phosphorus 2.6 Magnesium 2.0 Triglycerides Cholesterol LDL Cholesterol, Calc HDL Cholesterol Cholesterol/HDL Ratio Vancomycin Trough Adenovirus (PCR) Bordetella holmesii PCR B. pertussis DNA (PCR) B. paraper/bronch (PCR) Human Metapneumovir PCR Influenza A (RT-PCR) Influenza A (H1) PCR Influenza A (H3) PCR Influenza B (RT-PCR) Parainfluenza 1 (PCR) Parainfluenza 2 (PCR) Parainfluenza 3 (PCR) Parainfluenza 4 (PCR) RSV Type A (PCR) RSV Type B (PCR) Rhinovirus (PCR) 10/21/18 10/21/18 10/21/18 12:41 17:04 20:30 CBC w Diff WBC RBC Hgb Hct MCV MCH MCHC RDW Plt Count MPV Neut % (Auto) Lymph % (Auto) Maverick % (Auto) Eos % (Auto) Baso % (Auto) Neut # (Auto) Lymph # (Auto) Maverick # (Auto) Eos # (Auto) Baso # (Auto) WBC Differential Differential Comment Puncture Site Patient Temperature O2 Saturation ABG pH ABG pCO2 ABG pO2 ABG HCO3 ABG O2 Content ABG Base Excess ABG Methemoglobin Josse Test Hemoglobin Carboxyhemoglobin O2 Delivery Device Vent Setting Inspired O2 Critical Value Sodium Potassium Chloride Carbon Dioxide Anion Gap BUN Creatinine Estimated GFR POC Glucose 211 H 223 H Random Glucose Hemoglobin A1c Calcium Phosphorus Magnesium Triglycerides Cholesterol LDL Cholesterol, Calc HDL Cholesterol Cholesterol/HDL Ratio Vancomycin Trough 18.8 H Adenovirus (PCR) Bordetella holmesii PCR B. pertussis DNA (PCR) B. paraper/bronch (PCR) Human Metapneumovir PCR Influenza A (RT-PCR) Influenza A (H1) PCR Influenza A (H3) PCR Influenza B (RT-PCR) Parainfluenza 1 (PCR) Parainfluenza 2 (PCR) Parainfluenza 3 (PCR) Parainfluenza 4 (PCR) RSV Type A (PCR) RSV Type B (PCR) Rhinovirus (PCR) 10/21/18 10/22/18 10/22/18 23:38 03:25 03:25 CBC w Diff WBC 11.3 H RBC 3.95 L Hgb 13.0 Hct 39.4 MCV 99.6 MCH 33.0 MCHC 33.1 RDW 16.9 Plt Count 236 MPV 9.1 Neut % (Auto) 91.3 H Lymph % (Auto) 2.7 L Maverick % (Auto) 6.0 Eos % (Auto) 0.0 Baso % (Auto) 0.0 Neut # (Auto) 10.3 H Lymph # (Auto) 0.3 L Maverick # (Auto) 0.7 Eos # (Auto) 0.0 Baso # (Auto) 0.0 WBC Differential . Differential Comment Auto diff final Puncture Site Patient Temperature O2 Saturation ABG pH ABG pCO2 ABG pO2 ABG HCO3 ABG O2 Content ABG Base Excess ABG Methemoglobin Josse Test Hemoglobin Carboxyhemoglobin O2 Delivery Device Vent Setting Inspired O2 Critical Value Sodium 150 H Potassium 4.0 Chloride 111 H Carbon Dioxide 29.4 Anion Gap 10 BUN 72 H Creatinine 1.67 H Estimated GFR 30 L POC Glucose 214 H Random Glucose 231 H Hemoglobin A1c Calcium 8.7 Phosphorus 2.2 L Magnesium 2.3 Triglycerides Cholesterol LDL Cholesterol, Calc HDL Cholesterol Cholesterol/HDL Ratio Vancomycin Trough Adenovirus (PCR) Bordetella holmesii PCR B. pertussis DNA (PCR) B. paraper/bronch (PCR) Human Metapneumovir PCR Influenza A (RT-PCR) Influenza A (H1) PCR Influenza A (H3) PCR Influenza B (RT-PCR) Parainfluenza 1 (PCR) Parainfluenza 2 (PCR) Parainfluenza 3 (PCR) Parainfluenza 4 (PCR) RSV Type A (PCR) RSV Type B (PCR) Rhinovirus (PCR) 10/22/18 10/22/18 03:53 06:05 CBC w Diff WBC RBC Hgb Hct MCV MCH MCHC RDW Plt Count MPV Neut % (Auto) Lymph % (Auto) Maverick % (Auto) Eos % (Auto) Baso % (Auto) Neut # (Auto) Lymph # (Auto) Maverick # (Auto) Eos # (Auto) Baso # (Auto) WBC Differential Differential Comment Puncture Site Right radial Patient Temperature 98.6 O2 Saturation 97 ABG pH 7.57 H* ABG pCO2 31 L ABG pO2 171 H ABG HCO3 28 H ABG O2 Content 17.9 ABG Base Excess 5.2 H ABG Methemoglobin 1.4 Josse Test Present Hemoglobin 12.9 Carboxyhemoglobin 1.1 O2 Delivery Device Ventilator Vent Setting Aprv/bi Inspired O2 40 Critical Value Yes Sodium Potassium Chloride Carbon Dioxide Anion Gap BUN Creatinine Estimated GFR POC Glucose 212 H Random Glucose Hemoglobin A1c Calcium Phosphorus Magnesium Triglycerides Cholesterol LDL Cholesterol, Calc HDL Cholesterol Cholesterol/HDL Ratio Vancomycin Trough Adenovirus (PCR) Bordetella holmesii PCR B. pertussis DNA (PCR) B. paraper/bronch (PCR) Human Metapneumovir PCR Influenza A (RT-PCR) Influenza A (H1) PCR Influenza A (H3) PCR Influenza B (RT-PCR) Parainfluenza 1 (PCR) Parainfluenza 2 (PCR) Parainfluenza 3 (PCR) Parainfluenza 4 (PCR) RSV Type A (PCR) RSV Type B (PCR) Rhinovirus (PCR) Result Diagrams: 10/22/18 03:25 10/22/18 03:25 Microbiology: Microbiology 10/18/18 09:30 Aerobic Blood Culture - Preliminary Blood - Peripheral No growth in 4 days Anaerobic Blood Culture - Preliminary No growth in 4 days 10/18/18 09:25 Aerobic Blood Culture - Preliminary Blood - Peripheral No growth in 4 days Anaerobic Blood Culture - Preliminary No growth in 4 days 10/18/18 14:30 Gram Stain - Final Sputum - Endotracheal Sputum Culture - Final Heavy growth normal respiratory dylan 10/18/18 13:57 Urine Culture - Final Catheterized Urine No growth in 48 hours 10/18/18 18:30 Streptococcus pneumoniae Antigen (M - Final Urine - Catheterized Urine Presumptive negative for streptococcus pneumoniae antigen, suggesting no current or recent infection. Infection due to Streptococcus pneumoniae cannot be ruled out since the antigen present in the sample may be below the detection limit of the test. Imaging: ITS Impressions Abdomen X-Ray 10/18/18 00:00 CONCLUSION: Tip of the NG tube just past the GE junction. Venous Doppler Study 10/18/18 10:59 CONCLUSION: 1. The study is negative for bilateral lower extremity deep venous thrombosis. Head CT 10/18/18 14:32 CONCLUSION: 1. No acute intracranial abnormality. . Chest CTA 10/20/18 00:00 CONCLUSION: 1. The study is negative for pulmonary embolism. 2. Bilateral lower lung consolidation and pleural effusions, right greater than left. Chest Ultrasound 10/21/18 00:00 CONCLUSION: 1. Trace pleural effusion on the right. Chest X-Ray 10/22/18 04:00 CONCLUSION: Improved aeration Procedures: * 10/18/18 - intubated Assessment and Plan - Disease Oriented Problem List (1) Acute respiratory failure with hypercapnia (2) Pneumonia (3) Tobacco use disorder Pertinent Non-Medical Issues: Psychosocial: to her spouse Dc for 51 years. Supported by her daughter, Eula and son. Grandson and other family members here from [place]. Patient visits [place] yearly during winter season. Spiritual: Spiritual person, welcomes precipitation equipment tender support. Legal:Patient is not capacitated to make her own health care decisions, uncertain if he will regain capacity. According to [place] statutes, health care proxy decision making falls to her spouse, Dc. Ethical issues impacting care: No known concerns at this time. Important Contacts: * Dc Stahl, spouse: [phone] * Eula Lackey, daughter: [phone] Prognosis: Mrs. Avalos is a 68-year-old female with oxygen dependent COPD admitted with respiratory failure who never wanted mechanical ventilation or heroic measures. Family feels patient would want compassionate withdrawal of life support and transition to comfort focused care. Timing to be determined. Patient has end- stage/ terminal COPD. Code Status: No Code DNR Plan: * Patient is not capacitated to make her own health care decisions, uncertain if he will regain capacity. According to [place] statutes, health care proxy decision making falls to her spouse, Dc. * NO CODE * Plan for tentative compassionate withdrawal of life support in the coming day( s), timing to be determined. Plan to meet with family again 10/23/18 around 10am. Anticipatory guidance provided. * Exhibits B & C placed on chart for signatures when family ready. * Discussed with Dr. Grullon and nursing staff. * Helicopter Pilot support offered, family will notify whether or not they wish to have precipitation equipment tender visit on 10/23/18. * Palliative care number provided. * Palliative care will continue to follow throughout hospital course to assist with symptom management further clarification of treatment goals. Attestation Attestation: To help prompt me to consider important information that might be impacting today's encounter and assessment, information from prior notes written by myself or my colleagues may have been "brought forward" into today's note. My signature on this note, however, is an attestation that I personally performed the exam, history, and/or decision-making noted today, and, unless otherwise indicated, the interactions with patient, family, and staff as well as the review of records all occurred today. I also attest that the listed assessment and stated plan reflect my best clinical judgment today based on the combination of historical information, prior notes, and today's exam/ interactions. When time spent is documented, it refers only to time spent today by the signer, or if indicated, combined time spent today by collaborating physician/nurse practitioner. .
[2018-10-22 12:34] LABS: ABG Base Excess 5.7 mmol/L (-2-2); ABG PCO2 51 mmHg (38-42); ABG PO2 77 mmHG (61-120)
[2018-10-22] MEDS: Azithromycin Inj 500 MG in Sodium Chlor 0.9% Inj 250 ML IV.SIG SCH (17:10)
[2018-10-23] MEDS: Oral Hygiene Kit OROPHARYNG SCH ×2 (00:20→03:41)
[2018-10-23] MEDS: Insulin NovoLOG Aspart Correctional Sugar Inj SQ SCH ×2 (00:20→05:30)
[2018-10-23] MEDS: Chlorhexidine Gluconate 2% 1 Pack (2 Cloths) TOPICAL SCH (03:41)
[2018-10-23 04:21] LABS: Baso % (Auto) 0.1 % (0.0-2.0); Hematocrit 41.9 % (35.0-46.0); Hemoglobin 13.5 gm/dL (11.6-15.3); Lymph # (Auto) 0.2 th/mm3 (1.0-4.8); Lymph % (Auto) 1.7 % (9.0-44.0); Mean Corpuscular HGB Conc 32.2 % (32.0-36.0); Mean Corpuscular Hemoglobin 32.1 pg (27.0-34.0); Mean Corpuscular Volume 99.8 fL (80.0-100.0); Mean Platelet Volume 9.4 fL (7.0-11.0); Mono # (Auto) 0.7 th/mm3 (0.0-0.9); Mono % (Auto) 4.5 % (0.0-8.0); Neut # (Auto) 13.8 th/mm3 (1.8-7.7); Neut % (Auto) 93.7 % (16.0-70.0); Platelet Count 218 th/mm3 (150-450); Red Cell Distribution Width 17.5 % (11.6-17.2); White Blood Count 14.7 th/mm3 (4.0-11.0)
[2018-10-23 04:37] LABS: ABG Base Excess 7.5 mmol/L (-2-2); ABG PCO2 54 mmHg (38-42); ABG PO2 71 mmHG (61-120)
[2018-10-23 04:50] LABS: Calcium 8.6 mg/dL (8.5-10.1); Magnesium 2.6 mg/dL (1.5-2.5); Potassium 4.7 meq/L (3.5-5.1)
[2018-10-23 04:53] LABS: Phosphorus 3.1 mg/dL (2.5-4.9); Vancomycin,Random 17.7 Comment
[2018-10-23] MEDS: MethylPREDNISolone Sod Succinate Inj 40 MG/ML Vial IV.PUSH SCH (05:30)
--- NOTE | 2018-10-23 06:20 | XR ---
EXAM DATE: 10/23/2018 6:13 AM EST AGE/SEX: 68 years / Female INDICATIONS: Shortness of breath, possible pulmonary disease. CLINICAL DATA: This is the patient's subsequent encounter. Patient reports that signs and symptoms h ave been present for 1 week and indicates a pain score of Nonresponsive. MEDICAL/SURGICAL HISTORY: . Chronic obstructive pulmonary disease. Gastroesophageal reflux dise ase. Hypertension. A-fib. None. COMPARISON: [facility] [place] 1V SINGLE AP, 10/22/2018. . FINDINGS: Endotracheal tube tip is present for centimeter above the prince. Nasogastric tube descends into the stomach. Hazy diffuse bilateral primarily basilar pleural-parenchymal opacity is slightly worse than on previous exam. Cardiac silhouette remains enlarged. CONCLUSION: Worsening aeration Electronically signed by: Satya Garcia MD Board Certified Radiologist 10/23/2018 6:18 AM EST
[2018-10-23] MEDS: Metoprolol Tartrate 25 MG Tablet PO SCH (08:09)
[2018-10-23] MEDS: Amiodarone 200 MG Tablet PO SCH (08:09)
[2018-10-23] MEDS: Famotidine PF Inj 20 MG/2 ML Vial IV.PUSH SCH (08:13)
[2018-10-23] MEDS: Chlorhexidine 0.12% Oral Kit 15 ML UDC OROPHARYNG SCH (08:16)
--- NOTE | 2018-10-23 08:22 | P.PNCC ---
Subjective Subjective Remarks/Hospital Course: 10/19: FiO2 requirements decreased to 50%. CPAP trials initiated early this a.m.. ETT retracted 2cm, due to chest x-ray results ,to 21cm. On daily sedation vacation GCS 11 T. She has periods of agitation she remains on low- dose Versed at 1 mg fentanyl at 100 mics currently on CPAP trials. 10/20: Afebrile .GCS 11 T off sedation. Methylprednisolone initiated yesterday chest x-ray revealing slight improvement in irrigation today. Pulmonology consult pending appreciate recommendations . Patient normally utilizes home O2 3-4 L via nasal cannula . IV fluids discontinued last night noted rales in lung bases. Tube feeds to be initiated today. The patient continues on empiric antibiotics, influenza A/B pending. FiO2 requirements increased last night to 70% with noted ABG PaO2 of 57. Patient failed CPAP trials yesterday. 10/21: The patient's respiratory status continued to deteriorate. The patient was transferred to [facility], FIO2 75%. Overnight the patient ventilator management changed to Biphasic mode.Repeat ABG pending this afternoon. Tube feeds reinitiated. CTA noted no PE, US chest showed minimal pleural effusions. Eliquis restarted. 10/22: Noted decrease FiO2 requirements in the last 24hrs. Patient's chest x- ray shows improvement patient continues on biphasic mode , FiO2 now down to 40% . The patient converted into A. fib RVR yesterday heart rate in the 120s patient continued on metoprolol and amiodarone home medications digoxin 250 mics x1 dose was given. Patient now rate controlled. A family meeting was convened yesterday midmorning discussion with family and daughter and grandchildren request made to change CODE STATUS to DNR. Palliative care was consulted and case was discussed with Ms. Ivelisse Perez. Per family's reporting the patient was a DNR in the [facility] visiting [place], and has been was not able to make that decision emergently and proceeded with intubation in the ED. the patient's CODE STATUS was changed to DNR. Creatinine noted to be elevated most likely secondary to CTA and Lasix for diuresis. Lasix now placed on hold. 10/23: Afebrile. Overnight the patient had increased FiO2 requirements to 70%. Chest x-ray worsening. All sedation discontinued last evening, requested by family, and daughter to have patient awake this a.m. for possible communication prior to tentative ventilator withdrawal. This patient is noted to have spontaneous eye opening, and tracking, but is not following my commands this am. Continued elevation in WBC count, possible leukemoid reaction secondary to methylprednisolone, ID consulted. All cultures remain negative at this time. Objective Vital Signs / I&O: Vital Signs 10/22/18 08:30 10/22/18 09:00 10/22/18 09:30 Temperature Pulse Rate 105 H 99 H 96 H Respiratory Rate 10 L 10 L 10 L Blood Pressure 104/58 L 113/58 L 113/68 Pulse Oximetry 99 99 99 10/22/18 10:00 10/22/18 10:30 10/22/18 11:00 Temperature Pulse Rate 97 H 88 79 Respiratory Rate 18 18 18 Blood Pressure 123/60 107/54 L 106/58 L Pulse Oximetry 90 L 93 L 94 L 10/22/18 11:30 10/22/18 11:52 10/22/18 12:00 Temperature 98.5 F Pulse Rate 80 78 78 Respiratory Rate 18 19 18 Blood Pressure 115/58 L 125/65 Pulse Oximetry 95 95 97 10/22/18 12:30 10/22/18 13:00 10/22/18 13:30 Temperature Pulse Rate 79 85 80 Respiratory Rate 18 18 18 Blood Pressure 127/59 L 122/58 L 124/72 Pulse Oximetry 93 L 92 L 93 L 10/22/18 14:00 10/22/18 14:30 10/22/18 14:58 Temperature Pulse Rate 78 75 Respiratory Rate 18 18 18 Blood Pressure 128/62 132/63 Pulse Oximetry 93 L 93 L 94 L 10/22/18 15:00 10/22/18 15:30 10/22/18 16:00 Temperature 97.8 F Pulse Rate 80 78 77 Respiratory Rate 18 18 18 Blood Pressure 129/76 140/67 137/66 Pulse Oximetry 94 L 93 L 93 L 10/22/18 16:30 10/22/18 16:56 10/22/18 17:00 Temperature Pulse Rate 79 77 71 Respiratory Rate 18 18 Blood Pressure 139/85 127/66 Pulse Oximetry 93 L 92 L 10/22/18 17:31 10/22/18 17:34 10/22/18 18:00 Temperature Pulse Rate 78 72 71 Respiratory Rate 18 18 18 Blood Pressure 113/59 L 116/57 L 118/58 L Pulse Oximetry 91 L 91 L 91 L 10/22/18 19:00 10/22/18 19:35 10/22/18 20:00 Temperature 96.9 F L Pulse Rate 74 76 Respiratory Rate 18 19 18 Blood Pressure 120/57 L 128/57 L Pulse Oximetry 91 L 95 93 L 10/22/18 21:00 10/22/18 22:00 10/22/18 23:00 Temperature Pulse Rate 79 74 73 Respiratory Rate 18 18 18 Blood Pressure 110/55 L 119/57 L 122/60 Pulse Oximetry 93 L 92 L 91 L 10/23/18 00:00 10/23/18 00:02 10/23/18 01:00 Temperature 97.9 F Pulse Rate 71 76 Respiratory Rate 18 18 18 Blood Pressure 120/58 L 112/54 L Pulse Oximetry 93 L 94 L 92 L 10/23/18 02:00 10/23/18 03:00 10/23/18 03:55 Temperature Pulse Rate 76 76 Respiratory Rate 18 18 18 Blood Pressure 121/58 L 117/59 L Pulse Oximetry 90 L 92 L 94 L 10/23/18 04:00 10/23/18 05:00 10/23/18 06:00 Temperature 98 F Pulse Rate 89 77 79 Respiratory Rate 31 H 18 18 Blood Pressure 128/75 122/61 Pulse Oximetry 94 L 93 L 93 L 10/23/18 06:07 10/23/18 06:58 Temperature Pulse Rate 74 Respiratory Rate 18 18 Blood Pressure 139/67 Pulse Oximetry 93 L 95 Intake & Output 10/22/18 10/23/18 10/23/18 18:59 06:59 18:59 Intake Total 1122 / 1122 856 / 856 Output Total 500 / 500 650 / 650 Balance 622 / 622 206 / 206 Weight 115 kg Intake: IV 550 / 550 290 / 290 Precedex Inj 200 MCG In NS Inj 100 / 100 0 / 0 48 ML @ 0.2 MCG/KG/HR 5.82 mls/ hr IV.CONT TITRATE PRN Rx#: [id number] Versed Inj 100 mg In 100 ml @ 2 15 / 15 MG/HR 2 mls/hr IV.CONT TITRATE PRN Rx#:[id number] Neosynephrine Inj 40 MG In NS 75 / 75 Inj 496 ML @ 40 MCG/MIN 30 mls/ hr IV.CONT TITRATE PRN Rx#: [id number] Azithromycin Inj 500 MG In NS 250 / 250 Inj 250 ML @ 250 mls/hr IV.SIG Q24H MERE Rx#:[id number] Maxipime Inj 1,000 MG In NS Inj 200 / 200 200 / 200 100 ML @ 200 mls/hr IV.SIG Q8H MERE Rx#:[id number] Oral 0 / 0 Tube Feeding 512 / 512 506 / 506 Tube Irrigant 60 / 60 Water Bolus Amount 60 / 60 Output: Urine Amount (Catheter) 500 / 500 650 / 650 Indwelling Urethral Catheter 500 / 500 650 / 650 Other: # Bowel Movements 0 0 Result Diagrams: 10/23/18 03:26 10/23/18 03:26 Other Results: Laboratory Results CBC w Diff Auto diff final 10/20/18 04:53 WBC 14.7 th/mm3 (4.0-11.0) H 10/23/18 03:26 RBC 4.20 mil/mm3 (4.00-5.30) 10/23/18 03:26 Hgb 13.5 gm/dL (11.6-15.3) 10/23/18 03:26 Hct 41.9 % (35.0-46.0) 10/23/18 03:26 MCV 99.8 fL (80.0-100.0) 10/23/18 03:26 MCH 32.1 pg (27.0-34.0) 10/23/18 03:26 MCHC 32.2 % (32.0-36.0) 10/23/18 03:26 RDW 17.5 % (11.6-17.2) H 10/23/18 03:26 Plt Count 218 th/mm3 (150-450) 10/23/18 03:26 MPV 9.4 fL (7.0-11.0) 10/23/18 03:26 Neut % (Auto) 93.7 % (16.0-70.0) H 10/23/18 03:26 Lymph % (Auto) 1.7 % (9.0-44.0) L 10/23/18 03:26 [place] % (Auto) 4.5 % (0.0-8.0) 10/23/18 03:26 Eos % (Auto) 0.0 % (0.0-4.0) 10/23/18 03:26 Baso % (Auto) 0.1 % (0.0-2.0) 10/23/18 03:26 Neut # (Auto) 13.8 th/mm3 (1.8-7.7) H 10/23/18 03:26 Lymph # (Auto) 0.2 th/mm3 (1.0-4.8) L 10/23/18 03:26 [place] # (Auto) 0.7 th/mm3 (0.0-0.9) 10/23/18 03:26 Eos # (Auto) 0.0 th/mm3 (0.0-0.4) 10/23/18 03:26 Baso # (Auto) 0.0 th/mm3 (0.0-0.2) 10/23/18 03:26 WBC Differential . 10/23/18 03:26 Differential Comment Auto diff final 10/23/18 03:26 PT 13.0 sec (9.8-11.6) H 10/19/18 04:35 INR 1.3 Ratio 10/19/18 04:35 APTT 26.1 sec (23.4-31.7) 10/18/18 09:30 Puncture Site Right radial 10/23/18 04:25 Patient Temperature 98.6 10/23/18 04:25 O2 Saturation 91 % (90-100) 10/23/18 04:25 ABG pH 7.39 (7.380-7.420) 10/23/18 04:25 ABG pCO2 54 mmHg (38-42) H* 10/23/18 04:25 ABG pO2 71 mmHG (61-120) 10/23/18 04:25 ABG HCO3 32 mmol/L (22-26) H 10/23/18 04:25 ABG O2 Content 17.2 Vol % (12.0-20.0) 10/23/18 04:25 ABG Base Excess 7.5 mmol/L (-2-2) H 10/23/18 04:25 ABG Methemoglobin 1.4 % (0-2) 10/23/18 04:25 Josse Test Present 10/23/18 04:25 Hemoglobin 13.5 G/DL (12.0-16.0) 10/23/18 04:25 Carboxyhemoglobin 0.9 % (0-4) 10/23/18 04:25 O2 Delivery Device Ventilator 10/23/18 04:25 Liter Flow 3.00 L/M 10/18/18 10:00 Vent Setting Prvc18/500/1.0/+5 10/23/18 04:25 Inspired O2 65 % 10/23/18 04:25 Critical Value Yes 10/23/18 04:25 Sodium 153 meq/L (136-145) H 10/23/18 03:26 Potassium 4.7 meq/L (3.5-5.1) 10/23/18 03:26 Chloride 115 meq/L (98-107) H 10/23/18 03:26 Carbon Dioxide 34.0 meq/L (21.0-32.0) H 10/23/18 03:26 Anion Gap 4 meq/L (5-15) L 10/23/18 03:26 BUN 78 mg/dL (7-18) H 10/23/18 03:26 Creatinine 1.33 mg/dL (0.50-1.00) H 10/23/18 03:26 Estimated GFR 39 mL/min (>89) L 10/23/18 03:26 POC Glucose 193 mg/dl (68-110) H 10/22/18 22:57 Random Glucose 205 mg/dL (74-106) H 10/23/18 03:26 Hemoglobin A1c 7.0 % (4.3-6.0) H 10/18/18 14:38 Lactic Acid 1.7 mmol/L (0.4-2.0) 10/19/18 04:35 Calcium 8.6 mg/dL (8.5-10.1) 10/23/18 03:26 Phosphorus 3.1 mg/dL (2.5-4.9) 10/23/18 03:26 Magnesium 2.6 mg/dL (1.5-2.5) H 10/23/18 03:26 Total Bilirubin 0.7 mg/dL (0.2-1.0) 10/19/18 04:35 Direct Bilirubin 0.3 mg/dL (0.0-0.2) H 10/18/18 14:38 Indirect Bilirubin 0.4 mg/dL (0.0-0.8) 10/18/18 14:38 AST 27 U/L (15-37) 10/19/18 04:35 ALT 33 U/L (10-53) 10/19/18 04:35 Alkaline Phosphatase 113 U/L (45-117) 10/19/18 04:35 Ammonia 44 mcmol/L (11-32) H 10/18/18 14:38 Total Creatine Kinase 51 U/L (26-192) 10/18/18 14:38 Troponin I 0.03 ng/mL (0.02-0.05) 10/18/18 09:30 Total Protein 7.0 g/dL (6.4-8.2) 10/19/18 04:35 Albumin 2.6 g/dL (3.4-5.0) L 10/19/18 04:35 Triglycerides 91 mg/dL (42-150) 10/20/18 04:53 Cholesterol 87 mg/dL (120-200) L 10/20/18 04:53 LDL Cholesterol, Calc 31 mg/dL (0-99) 10/20/18 04:53 HDL Cholesterol 37.9 mg/dL (40.0-60.0) L 10/20/18 04:53 Cholesterol/HDL Ratio 2.29 Ratio 10/20/18 04:53 TSH 1.420 uIU/mL (0.358-3.740) 10/18/18 14:38 Thyroxine (T4) 10.7 mcg/dL (4.8-13.9) 10/18/18 14:38 Urine Color Yellow (Yellw/Straw) 10/18/18 13:57 Urine Clarity Clear (Clear) 10/18/18 13:57 Urine pH 6.0 (5.0-8.5) 10/18/18 13:57 Ur Specific [place] 1.020 (1.002-1.035) 10/18/18 13:57 Urine Protein Negative mg/dL (Neg-Trace) 10/18/18 13:57 Urine Glucose (UA) Negative mg/dL (Negative) 10/18/18 13:57 Urine Ketones Negative mg/dL (Negative) 10/18/18 13:57 Urine Occult Blood Negative (Negative) 10/18/18 13:57 Urine Nitrate Negative (Negative) 10/18/18 13:57 Urine Bilirubin Negative (Negative) 10/18/18 13:57 Urine Urobilinogen 0.2 mg/dL (Less than 2) 10/18/18 13:57 Ur Leukocyte Esterase Negative (Negative) 10/18/18 13:57 Urine RBC 0-3 /hpf (0-3) 10/18/18 13:57 Urine WBC 0-5 /hpf (0-5) 10/18/18 13:57 Ur Squamous Epith Cells 0-5 /hpf (0-5) 10/18/18 13:57 Hyaline Casts 0-3 /lpf (0-3) 10/18/18 13:57 Micro UA Comment Culture not ind 10/18/18 13:57 Ur Microscopic Review Microscopic reviewed 10/18/18 13:57 Urine Culture Comments Culture not ind 10/18/18 13:57 Nasal Screen MRSA (PCR) Not detected (Negative) 10/18/18 13:49 Vancomycin Trough 18.8 mcg/mL (5.0-10.0) H 10/21/18 20:30 Random Vancomycin 17.7 Comment 10/23/18 03:26 Adenovirus (PCR) Not detected (Not Detect) 10/18/18 14:45 Bordetella holmesii PCR Not detected (Not Detect) 10/18/18 14:45 B. pertussis DNA (PCR) Not detected (Not Detect) 10/18/18 14:45 B. paraper/bronch (PCR) Not detected (Not Detect) 10/18/18 14:45 Human Metapneumovir PCR Not detected (Not Detect) 10/18/18 14:45 Influenza A (RT-PCR) Not detected (Not Detect) 10/18/18 14:45 Influenza A (H1) PCR Not detected (Not Detect) 10/18/18 14:45 Influenza A (H3) PCR Not detected (Not Detect) 10/18/18 14:45 Influenza B (RT-PCR) Not detected (Not Detect) 10/18/18 14:45 Parainfluenza 1 (PCR) Not detected (Not Detect) 10/18/18 14:45 Parainfluenza 2 (PCR) Not detected (Not Detect) 10/18/18 14:45 Parainfluenza 3 (PCR) Not detected (Not Detect) 10/18/18 14:45 Parainfluenza 4 (PCR) Not detected (Not Detect) 10/18/18 14:45 RSV Type A (PCR) Not detected (Not Detect) 10/18/18 14:45 RSV Type B (PCR) Not detected (Not Detect) 10/18/18 14:45 Rhinovirus (PCR) Not detected (Not Detect) 10/18/18 14:45 Impressions Abdomen X-Ray 10/18/18 00:00 CONCLUSION: Tip of the NG tube just past the GE junction. Venous Doppler Study 10/18/18 10:59 CONCLUSION: 1. The study is negative for bilateral lower extremity deep venous thrombosis. Head CT 10/18/18 14:32 CONCLUSION: 1. No acute intracranial abnormality. . Chest CTA 10/20/18 00:00 CONCLUSION: 1. The study is negative for pulmonary embolism. 2. Bilateral lower lung consolidation and pleural effusions, right greater than left. Chest Ultrasound 10/21/18 00:00 CONCLUSION: 1. Trace pleural effusion on the right. Chest X-Ray 10/23/18 04:00 CONCLUSION: Worsening aeration Objective Remarks: GENERAL: This is a well-developed well-nourished morbidly obese female currently intubated , spontaneous eye opening and visual tracking SKIN: Warm and dry. Skin integrity intact HEAD: Atraumatic. Normocephalic. EYES: Pupils equal and round. EOMI. No scleral icterus. No injection or drainage. ENT: No nasal bleeding or discharge. Mucous membranes pink and moist. NECK: Trachea midline. No JVD. CARDIOVASCULAR: Irregular rate irregular rhythm. Atrial fibrillation RESPIRATORY: No accessory muscle use. Clear to auscultation. Breath sounds equal bilaterally. GASTROINTESTINAL: Abdomen soft, non-tender, obese nondistended. No guarding. Normoactive bowel sounds MUSCULOSKELETAL: Extremities without clubbing, cyanosis, 1+ peripheral edema No obvious deformities. NEUROLOGICAL: Currently on no sedation . RASS -1 No gross focal/sensory deficits. Not following commands this a.m.. But spontaneous movement of extremities x4. Assessment and Plan - Problem List (1) Tobacco use disorder Code(s): F17.200 - Nicotine dependence, unspecified, uncomplicated Status: Acute - Assessment and Plan Plan: Plan by systems: Neurologic: Versed and fentanyl infusions discontinued on 10/22. Precedex infusion was initiated for ventilator synchrony, which was discontinued at 1800 last p.m.. Patient awake visually tracking but not following my commands Family request this a.m. that patient be completely await for communication with family planned for this a.m. Neurochecks per ICU protocol 10/19 CT head negative Respiratory: Acute hypercapnic respiratory failure Acute on chronic COPD exacerbation Tobacco use disorder Pneumonia B/L Pleural Effusions Maintain O2 sat greater than 92% Ventilator bundle Currently patient is on FiO2 of 70% with a PEEP of 10, continue to wean as tolerated Reinitiate CPAP trials when clinically indicated and less FiO2 requirement Chest x-rayslight improvement in aeration Vent management per pulmonology, biphasic discontinued, placed on PRVC yesterday 18/500/5/60%, ventilator requirements increased to 70% Duo nebs every 4 hours scheduled and every 2 hours as needed Plan for smoking cessation counseling post extubation Continue Solu-Medrol 40 every 8hrs Patient has home O2 dependency ranging 3-4 LPM, per report of family Pulmonology following Nicotine patch medium dose 10/21 US chest right effusion 125cc, left effusion 85cc 10/20- CTA no Pulm Embolus Cardiovascular: Cardiomegaly Chronic atrial fibrillation H/O HTN H/O CABG Continue amiodarone 200 mg/day, aspirin 81 mg/day, metoprolol 25 mg twice daily (with parameters only), and Eliquis 5 mg twice daily Home dosing Lasix 40 mg decreased to daily at this time noted creatinine improving Monitor QT interval-patient currently on azithromycin and home dose amiodarone 10/20 ECHO results- EF40-45%, RV mildly dilated Renal: SAMIRA Insert Branch strict I and O-being monitored currently on diuretics -- Strict I/Os FEN/GI: Obesity Protein calorie malnutrition Albumin 3.0 Continue tube feedings- Glucerna 1.5 Zofran for nausea Famotidine for GI prophylaxis atorvastatin Heme/ID: Pneumonia 10/19 blood, urine, sputum cultures- NGTD influenza A/B- Neg Blood culture -NGTD strep pneumo antigen 10/18 respiratory panel- NGTD Monitor CBC Initiate empiric antibiotics cefepime, azithromycin, and vancomycin(day 6) Endocrine: Hyperglycemia of critical illness Glucose monitoring per ICU protocol, increased to high-dose regimen Hemoglobin A1c 7.0 on admission -- SSI Prophylaxis: GI Prophylaxis Famotidine DVT Prophylaxis -- SCDs Patient on Eliquis 5 mg twice daily Lines: Of IVs x2. Central line if indicated My billing statement This patient remains critically ill with one or more organ systems which are or may become a threat to life. I have spent in excess of 30 minutes discontinuously in the care and management of this patient. This time is exclusive of procedures, and includes, but is not limited to, evaluation of the patient, review of the medical record, discussions with family, consultants, nursing staff, or respiratory therapy, and documentation in the medical record. Palliative care has been consulted. Plan per family( and daughter) is for patient to remain DNR status and plan for ventilator withdrawal tentatively on today if unable to extubate, due to family's request that the patient never wanted to be intubated. Family requests that sedation be discontinued in order to communicate with the patient this a.m.. We will follow up recommendations from family and palliative care. Code Status: DNR Discussed Condition With: No family at bedside at this time . Discussed with BEVERAGE DISTILLER at bedside
[2018-10-23] MEDS ORDERED: Morphine Inj 4 MG/ML Vial IV.PUSH PRN (09:42)
[2018-10-23] MEDS ORDERED: Morphine Sulfate Inj 8 MG/ML Vial IV.PUSH ONE ×2 (09:42)
[2018-10-23] MEDS ORDERED: Acetaminophen 650 MG Supp RECTAL PRN (09:42)
[2018-10-23] MEDS ORDERED: Hyoscyamine Inj 0.5 MG/ML Ampul IV.PUSH PRN (09:42)
--- NOTE | 2018-10-23 09:53 | P.PNPL ---
Subjective Interval history: Patient remains intubated and sedated on PRVC with FIO2 increased 65%. Family requested withdrawal life support and transition to comfort care. Physical Exam Vital signs: Vital Signs 10/22/18 10:00 10/22/18 10:30 10/22/18 11:00 Temperature Pulse Rate 97 H 88 79 Respiratory Rate 18 18 18 Blood Pressure 123/60 107/54 L 106/58 L Pulse Oximetry 90 L 93 L 94 L 10/22/18 11:30 10/22/18 11:52 10/22/18 12:00 Temperature 98.5 F Pulse Rate 80 78 78 Respiratory Rate 18 19 18 Blood Pressure 115/58 L 125/65 Pulse Oximetry 95 95 97 10/22/18 12:30 10/22/18 13:00 10/22/18 13:30 Temperature Pulse Rate 79 85 80 Respiratory Rate 18 18 18 Blood Pressure 127/59 L 122/58 L 124/72 Pulse Oximetry 93 L 92 L 93 L 10/22/18 14:00 10/22/18 14:30 10/22/18 14:58 Temperature Pulse Rate 78 75 Respiratory Rate 18 18 18 Blood Pressure 128/62 132/63 Pulse Oximetry 93 L 93 L 94 L 10/22/18 15:00 10/22/18 15:30 10/22/18 16:00 Temperature 97.8 F Pulse Rate 80 78 77 Respiratory Rate 18 18 18 Blood Pressure 129/76 140/67 137/66 Pulse Oximetry 94 L 93 L 93 L 10/22/18 16:30 10/22/18 16:56 10/22/18 17:00 Temperature Pulse Rate 79 77 71 Respiratory Rate 18 18 Blood Pressure 139/85 127/66 Pulse Oximetry 93 L 92 L 10/22/18 17:31 10/22/18 17:34 10/22/18 18:00 Temperature Pulse Rate 78 72 71 Respiratory Rate 18 18 18 Blood Pressure 113/59 L 116/57 L 118/58 L Pulse Oximetry 91 L 91 L 91 L 10/22/18 19:00 10/22/18 19:35 10/22/18 20:00 Temperature 96.9 F L Pulse Rate 74 76 Respiratory Rate 18 19 18 Blood Pressure 120/57 L 128/57 L Pulse Oximetry 91 L 95 93 L 10/22/18 21:00 10/22/18 22:00 10/22/18 23:00 Temperature Pulse Rate 79 74 73 Respiratory Rate 18 18 18 Blood Pressure 110/55 L 119/57 L 122/60 Pulse Oximetry 93 L 92 L 91 L 10/23/18 00:00 10/23/18 00:02 10/23/18 01:00 Temperature 97.9 F Pulse Rate 71 76 Respiratory Rate 18 18 18 Blood Pressure 120/58 L 112/54 L Pulse Oximetry 93 L 94 L 92 L 10/23/18 02:00 10/23/18 03:00 10/23/18 03:55 Temperature Pulse Rate 76 76 Respiratory Rate 18 18 18 Blood Pressure 121/58 L 117/59 L Pulse Oximetry 90 L 92 L 94 L 10/23/18 04:00 10/23/18 05:00 10/23/18 06:00 Temperature 98 F Pulse Rate 89 77 79 Respiratory Rate 31 H 18 18 Blood Pressure 128/75 122/61 Pulse Oximetry 94 L 93 L 93 L 10/23/18 06:07 10/23/18 06:58 Temperature Pulse Rate 74 Respiratory Rate 18 18 Blood Pressure 139/67 Pulse Oximetry 93 L 95 Intake & Output 10/22/18 10/23/18 10/23/18 18:59 06:59 18:59 Intake Total 1122 / 1122 856 / 856 Output Total 500 / 500 650 / 650 Balance 622 / 622 206 / 206 Weight 115 kg Intake: IV 550 / 550 290 / 290 Precedex Inj 200 MCG In NS Inj 100 / 100 0 / 0 48 ML @ 0.2 MCG/KG/HR 5.82 mls/ hr IV.CONT TITRATE PRN Rx#: [id number] Versed Inj 100 mg In 100 ml @ 2 15 / 15 MG/HR 2 mls/hr IV.CONT TITRATE PRN Rx#:[id number] Neosynephrine Inj 40 MG In NS 75 / 75 Inj 496 ML @ 40 MCG/MIN 30 mls/ hr IV.CONT TITRATE PRN Rx#: [id number] Azithromycin Inj 500 MG In NS 250 / 250 Inj 250 ML @ 250 mls/hr IV.SIG Q24H MERE Rx#:[id number] Maxipime Inj 1,000 MG In NS Inj 200 / 200 200 / 200 100 ML @ 200 mls/hr IV.SIG Q8H MERE Rx#:[id number] Oral 0 / 0 Tube Feeding 512 / 512 506 / 506 Tube Irrigant 60 / 60 Water Bolus Amount 60 / 60 Output: Urine Amount (Catheter) 500 / 500 650 / 650 Indwelling Urethral Catheter 500 / 500 650 / 650 Other: # Bowel Movements 0 0 - Constitutional no acute distress, obese - Routine HEENT Exam Head: Present: normocephalic, atraumatic Eye: Present: EOMI, PERRL, conjunctivae pink ENT: Present: mucous membranes moist - Routine Neck Exam Present: supple, full ROM, trachea midline - Routine Respiratory Exam Present: patient mechanically ventilated, CTA bilaterally - Routine Cardiovascular Exam Present: RRR, S1, S2 - Routine Abdominal Exam Present: soft, normoactive bowel sounds - Routine Extremities Exam Present: pulses intact - Routine Neurological Exam Present: alert - Urinary Catheter Management Indwelling Urethral Catheter Cath placed during this visit: yes Reason for continuing: Hourly intake/output Insertion date: 10/18/18 Assessment and Plan - Assessment (1) Tobacco use disorder Code(s): F17.200 - Nicotine dependence, unspecified, uncomplicated Status: Acute - Plan 1. Acute hypoxemic and hypercapnic respiratory failure. 2. Chronic obstructive pulmonary disease. 3. Hypertension. 4. Chronic atrial fibrillation. 5. Obesity. 6. Gastroesophageal reflux disease. 7. Mild left ventricular dysfunction with ejection fraction 40%-45%. Plan On Versed and Fentanyl infusion for sedation. Daily sedation vacation when appropriate. Continue with vent support and maintain sats above 92%. Bronchodilators. Solu-Medrol 40 mg IV every 8 hours. CXR 10/22- improved aeration of lungs CTA chest 10/20: No PE< bibasilar consolidation with small pleural effusion. Doppler US LE negative for DVT. Echo: 10/19 :moderately decreased RV systolic function with EF of 40%-45% and moderate pulmonary hypertension with a PA pressure of 54 mmHg. Abx- on cefepime, Vanco and azithromycin. Monitor for signs of infection, d/c vanco ( BC 10/18; NGTD) Sputum cx: normal resp dylan, strep pneumonia legionella urinary Ag, Influenza screening, BC all negative Nutrition support- on tube feeds- Glucerna 1.5. GI/DVT prophylaxis. on Pepcid and Eliquis respectively. Family elected to proceed with withdrawal life support today. Discussed with Dr. Grullon and nursing staff. Continue treatment plan.
[2018-10-23] MEDS: fentaNYL 10 mcg/mL Premix Drip 2,500 MCG/250 ML BAG IV.SIG PRN (10:00)
--- NOTE | 2018-10-23 12:57 | P.PNPAL ---
Reason for Visit Reason for visit: a. To assist with evaluation and management of symptoms including: dyspnea, pain. b. To assist medical decision maker(s) with: better understanding of current medical conditions; weighing benefits/burdens of medical treatment options; making medical treatment decisions. Subjective Subjective/Interval History: Call from nurse to report family is ready to proceed with compassionate withdrawal of life support. Dr. Grullon has already signed exhibits per nursing staff. Overnight patient had increasing FiO2 needs on mech vent, FiO2 70%. Chest x-ray worsening. Upon my arrival family at bedside, saying their good-byes to patient. Family indicates they asked her if she wanted the tubes removed and she agreed. Family again indicates she "never wanted to be put on a machine." They hope for her peace and comfort now. Dr. Grullon put in orders for transition to comfort prior to my arrival. Again reviewed anticipatory guidance and questions answered. Pottery Decoration Designer at bedside. . Family/Friend Interactions: See interval note. Advance Directives Living Will: Never completed Health Care Surrogate: Never completed Durable Power of Metal Bed Assembler: Never completed Health Care Surrogate Name and Number: Health Care Proxy: spouse, Dc Daviser : [phone] Significant change in goals:: NO CODE. Family has decided to proceed with compassionate withdrawal of life support and transition to comfort. Will consider hospice in AM if patient survives. Objective Vital Signs: Vital Signs 10/22/18 13:00 10/22/18 13:30 10/22/18 14:00 Temperature Pulse Rate 85 80 78 Respiratory Rate 18 18 18 Blood Pressure 122/58 L 124/72 128/62 Pulse Oximetry 92 L 93 L 93 L 10/22/18 14:30 10/22/18 14:58 10/22/18 15:00 Temperature Pulse Rate 75 80 Respiratory Rate 18 18 18 Blood Pressure 132/63 129/76 Pulse Oximetry 93 L 94 L 94 L 10/22/18 15:30 10/22/18 16:00 10/22/18 16:30 Temperature 97.8 F Pulse Rate 78 77 79 Respiratory Rate 18 18 18 Blood Pressure 140/67 137/66 139/85 Pulse Oximetry 93 L 93 L 93 L 10/22/18 16:56 10/22/18 17:00 10/22/18 17:31 Temperature Pulse Rate 77 71 78 Respiratory Rate 18 18 Blood Pressure 127/66 113/59 L Pulse Oximetry 92 L 91 L 10/22/18 17:34 10/22/18 18:00 10/22/18 19:00 Temperature Pulse Rate 72 71 74 Respiratory Rate 18 18 18 Blood Pressure 116/57 L 118/58 L 120/57 L Pulse Oximetry 91 L 91 L 91 L 10/22/18 19:35 10/22/18 20:00 10/22/18 21:00 Temperature 96.9 F L Pulse Rate 76 79 Respiratory Rate 19 18 18 Blood Pressure 128/57 L 110/55 L Pulse Oximetry 95 93 L 93 L 10/22/18 22:00 10/22/18 23:00 10/23/18 00:00 Temperature 97.9 F Pulse Rate 74 73 71 Respiratory Rate 18 18 18 Blood Pressure 119/57 L 122/60 120/58 L Pulse Oximetry 92 L 91 L 93 L 10/23/18 00:02 10/23/18 01:00 10/23/18 02:00 Temperature Pulse Rate 76 76 Respiratory Rate 18 18 18 Blood Pressure 112/54 L 121/58 L Pulse Oximetry 94 L 92 L 90 L 10/23/18 03:00 10/23/18 03:55 10/23/18 04:00 Temperature 98 F Pulse Rate 76 89 Respiratory Rate 18 18 31 H Blood Pressure 117/59 L 128/75 Pulse Oximetry 92 L 94 L 94 L 10/23/18 05:00 10/23/18 06:00 10/23/18 06:07 Temperature Pulse Rate 77 79 74 Respiratory Rate 18 18 18 Blood Pressure 122/61 139/67 Pulse Oximetry 93 L 93 L 93 L 10/23/18 06:58 10/23/18 07:00 10/23/18 07:01 Temperature Pulse Rate 87 89 Respiratory Rate 18 18 18 Blood Pressure 129/88 Pulse Oximetry 95 95 95 10/23/18 08:00 10/23/18 09:00 10/23/18 10:00 Temperature 97.9 F Pulse Rate 90 90 82 Respiratory Rate 21 18 18 Blood Pressure 139/64 132/67 144/101 H Pulse Oximetry 97 93 L 94 L Intake & Output 10/22/18 10/23/18 10/23/18 18:59 06:59 18:59 Intake Total 1122 / 1122 856 / 856 Output Total 500 / 500 650 / 650 Balance 622 / 622 206 / 206 Weight 115 kg Intake: IV 550 / 550 290 / 290 Precedex Inj 200 MCG In NS Inj 100 / 100 0 / 0 48 ML @ 0.2 MCG/KG/HR 5.82 mls/ hr IV.CONT TITRATE PRN Rx#: [id number] Versed Inj 100 mg In 100 ml @ 2 15 / 15 MG/HR 2 mls/hr IV.CONT TITRATE PRN Rx#:[id number] Neosynephrine Inj 40 MG In NS 75 / 75 Inj 496 ML @ 40 MCG/MIN 30 mls/ hr IV.CONT TITRATE PRN Rx#: [id number] Azithromycin Inj 500 MG In NS 250 / 250 Inj 250 ML @ 250 mls/hr IV.SIG Q24H MERE Rx#:[id number] Maxipime Inj 1,000 MG In NS Inj 200 / 200 200 / 200 100 ML @ 200 mls/hr IV.SIG Q8H MERE Rx#:[id number] Oral 0 / 0 Tube Feeding 512 / 512 506 / 506 Tube Irrigant 60 / 60 Water Bolus Amount 60 / 60 Output: Urine Amount (Catheter) 500 / 500 650 / 650 Indwelling Urethral Catheter 500 / 500 650 / 650 Other: # Bowel Movements 0 0 Physical Exam: CONSTITUTIONAL/GENERAL: This is a morbidly obese female patient, sedated on mech vent. TUBES/LINES/DRAINS:ETT, OG, wrist restraints, IV, SCDs, Branch. SKIN: No jaundice, rashes, or lesions. Ecchymoses on upper extremities. No wounds seen anteriorly. Skin temperature appropriate. Not diaphoretic. HEAD: Atraumatic. Normocephalic. EYES: Pupils equal and round and reactive. ENT: Unable to assess hearing. Nose without bleeding or purulent drainage. CARDIOVASCULAR: S1, S2, irregular rhythm, controlled rate, 2/6 systolic ejection murmur. RESPIRATORY/CHEST: Shallow distant breath sounds on vent. GASTROINTESTINAL: Abdomen soft, protuberant. No guarding. Bowel sounds present. GENITOURINARY: Without palpable bladder distension. Branch catheter in place. MUSCULOSKELETAL: Extremities with edema. No mottling or clubbing. NEUROLOGICAL: Awake. . Diagnostic Tests Laboratory: Laboratory Results - last 72 hr 10/20/18 10/21/18 10/21/18 17:49 00:26 03:23 WBC 10.4 RBC 3.86 L Hgb 12.9 Hct 38.7 MCV 100.2 H MCH 33.4 MCHC 33.4 RDW 17.5 H Plt Count 224 MPV 8.4 Neut % (Auto) 92.4 H Lymph % (Auto) 3.7 L [place] % (Auto) 3.8 Eos % (Auto) 0.0 Baso % (Auto) 0.1 Neut # (Auto) 9.6 H Lymph # (Auto) 0.4 L [place] # (Auto) 0.4 Eos # (Auto) 0.0 Baso # (Auto) 0.0 WBC Differential . Differential Comment Auto diff final Puncture Site Patient Temperature O2 Saturation ABG pH ABG pCO2 ABG pO2 ABG HCO3 ABG O2 Content ABG Base Excess ABG Methemoglobin Josse Test Hemoglobin Carboxyhemoglobin O2 Delivery Device Vent Setting Inspired O2 Critical Value Sodium Potassium Chloride Carbon Dioxide Anion Gap BUN Creatinine Estimated GFR POC Glucose 191 H 166 H Random Glucose Calcium Phosphorus Magnesium Vancomycin Trough Random Vancomycin 10/21/18 10/21/18 10/21/18 03:23 05:49 12:00 WBC RBC Hgb Hct MCV MCH MCHC RDW Plt Count MPV Neut % (Auto) Lymph % (Auto) [place] % (Auto) Eos % (Auto) Baso % (Auto) Neut # (Auto) Lymph # (Auto) [place] # (Auto) Eos # (Auto) Baso # (Auto) WBC Differential Differential Comment Puncture Site Left radial Right radial Patient Temperature 98.6 98.6 O2 Saturation 97 98 ABG pH 7.46 H 7.58 H* ABG pCO2 46 H 31 L ABG pO2 130 H 226 H ABG HCO3 32 H 29 H ABG O2 Content 17.4 18.0 ABG Base Excess 8.1 H 6.4 H ABG Methemoglobin 1.4 1.2 Josse Test Present Present Hemoglobin 12.7 12.8 Carboxyhemoglobin 0.8 0.9 O2 Delivery Device Ventilator Ventilator Vent Setting Aprv/bi See comments Inspired O2 100 50 Critical Value No Yes Sodium 149 H Potassium 3.7 Chloride 109 H Carbon Dioxide 34.0 H Anion Gap 6 BUN 54 H Creatinine 1.13 H Estimated GFR 48 L POC Glucose Random Glucose 177 H Calcium 8.6 Phosphorus 2.6 Magnesium 2.0 Vancomycin Trough Random Vancomycin 02/13/19 02/13/19 02/13/19 12:41 17:04 20:30 WBC RBC Hgb Hct MCV MCH MCHC RDW Plt Count MPV Neut % (Auto) Lymph % (Auto) [place] % (Auto) Eos % (Auto) Baso % (Auto) Neut # (Auto) Lymph # (Auto) [place] # (Auto) Eos # (Auto) Baso # (Auto) WBC Differential Differential Comment Puncture Site Patient Temperature O2 Saturation ABG pH ABG pCO2 ABG pO2 ABG HCO3 ABG O2 Content ABG Base Excess ABG Methemoglobin Josse Test Hemoglobin Carboxyhemoglobin O2 Delivery Device Vent Setting Inspired O2 Critical Value Sodium Potassium Chloride Carbon Dioxide Anion Gap BUN Creatinine Estimated GFR POC Glucose 211 H 223 H Random Glucose Calcium Phosphorus Magnesium Vancomycin Trough 18.8 H Random Vancomycin 10/21/18 10/22/18 10/22/18 23:38 03:25 03:25 WBC 11.3 H RBC 3.95 L Hgb 13.0 Hct 39.4 MCV 99.6 MCH 33.0 MCHC 33.1 RDW 16.9 Plt Count 236 MPV 9.1 Neut % (Auto) 91.3 H Lymph % (Auto) 2.7 L [place] % (Auto) 6.0 Eos % (Auto) 0.0 Baso % (Auto) 0.0 Neut # (Auto) 10.3 H Lymph # (Auto) 0.3 L [place] # (Auto) 0.7 Eos # (Auto) 0.0 Baso # (Auto) 0.0 WBC Differential . Differential Comment Auto diff final Puncture Site Patient Temperature O2 Saturation ABG pH ABG pCO2 ABG pO2 ABG HCO3 ABG O2 Content ABG Base Excess ABG Methemoglobin Josse Test Hemoglobin Carboxyhemoglobin O2 Delivery Device Vent Setting Inspired O2 Critical Value Sodium 150 H Potassium 4.0 Chloride 111 H Carbon Dioxide 29.4 Anion Gap 10 BUN 72 H Creatinine 1.67 H Estimated GFR 30 L POC Glucose 214 H Random Glucose 231 H Calcium 8.7 Phosphorus 2.2 L Magnesium 2.3 Vancomycin Trough Random Vancomycin 10/22/18 10/22/18 10/22/18 03:53 06:05 12:22 WBC RBC Hgb Hct MCV MCH MCHC RDW Plt Count MPV Neut % (Auto) Lymph % (Auto) [place] % (Auto) Eos % (Auto) Baso % (Auto) Neut # (Auto) Lymph # (Auto) [place] # (Auto) Eos # (Auto) Baso # (Auto) WBC Differential Differential Comment Puncture Site Right radial Right radial Patient Temperature 98.6 98.6 O2 Saturation 97 92 ABG pH 7.57 H* 7.39 ABG pCO2 31 L 51 H* ABG pO2 171 H 77 ABG HCO3 28 H 31 H ABG O2 Content 17.9 16.7 ABG Base Excess 5.2 H 5.7 H ABG Methemoglobin 1.4 1.5 Josse Test Present Present Hemoglobin 12.9 12.9 Carboxyhemoglobin 1.1 0.9 O2 Delivery Device Ventilator Ventilator Vent Setting Aprv/bi Prvc/ac Inspired O2 40 50 Critical Value Yes Yes Sodium Potassium Chloride Carbon Dioxide Anion Gap BUN Creatinine Estimated GFR POC Glucose 212 H Random Glucose Calcium Phosphorus Magnesium Vancomycin Trough Random Vancomycin 10/22/18 10/22/18 10/22/18 14:45 17:34 22:57 WBC RBC Hgb Hct MCV MCH MCHC RDW Plt Count MPV Neut % (Auto) Lymph % (Auto) [place] % (Auto) Eos % (Auto) Baso % (Auto) Neut # (Auto) Lymph # (Auto) [place] # (Auto) Eos # (Auto) Baso # (Auto) WBC Differential Differential Comment Puncture Site Patient Temperature O2 Saturation ABG pH ABG pCO2 ABG pO2 ABG HCO3 ABG O2 Content ABG Base Excess ABG Methemoglobin Josse Test Hemoglobin Carboxyhemoglobin O2 Delivery Device Vent Setting Inspired O2 Critical Value Sodium Potassium Chloride Carbon Dioxide Anion Gap BUN Creatinine Estimated GFR POC Glucose 213 H 239 H 193 H Random Glucose Calcium Phosphorus Magnesium Vancomycin Trough Random Vancomycin 10/23/18 10/23/18 10/23/18 03:26 03:26 04:25 WBC 14.7 H RBC 4.20 Hgb 13.5 Hct 41.9 MCV 99.8 MCH 32.1 MCHC 32.2 RDW 17.5 H Plt Count 218 MPV 9.4 Neut % (Auto) 93.7 H Lymph % (Auto) 1.7 L [place] % (Auto) 4.5 Eos % (Auto) 0.0 Baso % (Auto) 0.1 Neut # (Auto) 13.8 H Lymph # (Auto) 0.2 L [place] # (Auto) 0.7 Eos # (Auto) 0.0 Baso # (Auto) 0.0 WBC Differential . Differential Comment Auto diff final Puncture Site Right radial Patient Temperature 98.6 O2 Saturation 91 ABG pH 7.39 ABG pCO2 54 H* ABG pO2 71 ABG HCO3 32 H ABG O2 Content 17.2 ABG Base Excess 7.5 H ABG Methemoglobin 1.4 Josse Test Present Hemoglobin 13.5 Carboxyhemoglobin 0.9 O2 Delivery Device Ventilator Vent Setting Prvc18/500/1.0/+5 Inspired O2 65 Critical Value Yes Sodium 153 H Potassium 4.7 Chloride 115 H Carbon Dioxide 34.0 H Anion Gap 4 L BUN 78 H Creatinine 1.33 H Estimated GFR 39 L POC Glucose Random Glucose 205 H Calcium 8.6 Phosphorus 3.1 Magnesium 2.6 H Vancomycin Trough Random Vancomycin 17.7 Result Diagrams: 10/23/18 03:26 10/23/18 03:26 Microbiology: Microbiology 10/18/18 09:30 Aerobic Blood Culture - Final Blood - Peripheral No growth in 5 days Anaerobic Blood Culture - Final No growth in 5 days 10/18/18 09:25 Aerobic Blood Culture - Final Blood - Peripheral No growth in 5 days Anaerobic Blood Culture - Final No growth in 5 days 10/18/18 14:30 Gram Stain - Final Sputum - Endotracheal Sputum Culture - Final Heavy growth normal respiratory dylan 10/18/18 13:57 Urine Culture - Final Catheterized Urine No growth in 48 hours Imaging: Abdomen X-Ray 10/18/18 00:00 CONCLUSION: Tip of the NG tube just past the GE junction. Venous Doppler Study 10/18/18 10:59 CONCLUSION: 1. The study is negative for bilateral lower extremity deep venous thrombosis. Head CT 10/18/18 14:32 CONCLUSION: 1. No acute intracranial abnormality. . Chest CTA 10/20/18 00:00 CONCLUSION: 1. The study is negative for pulmonary embolism. 2. Bilateral lower lung consolidation and pleural effusions, right greater than left. Chest Ultrasound 10/21/18 00:00 CONCLUSION: 1. Trace pleural effusion on the right. Chest X-Ray 10/23/18 04:00 CONCLUSION: Worsening aeration Procedures: * 10/18/18 - intubated Assessment and Plan - Disease Oriented Problem List (1) Acute respiratory failure with hypercapnia (2) Pneumonia (3) Tobacco use disorder Pertinent Non-Medical Issues: Psychosocial: to her spouse Dc for 51 years. Supported by her daughter, Eula and son. Grandson and other family members here from [place]. Patient visits [place] yearly during winter season. Spiritual: Spiritual person, welcomes sole blacker support. Legal:Patient is not capacitated to make her own health care decisions, uncertain if he will regain capacity. According to [place] statutes, health care proxy decision making falls to her spouse, Dc. Ethical issues impacting care: No known concerns at this time. Important Contacts: * Dc Stahl, spouse: [phone] * Eula Lackey, daughter: [phone] Prognosis: Mrs. Avalos is a 68-year-old female with oxygen dependent COPD admitted with respiratory failure who never wanted mechanical ventilation or heroic measures. Family feels patient would want compassionate withdrawal of life support and transition to comfort focused care. Timing to be determined. Patient has end- stage/ terminal COPD. Code Status: No Code DNR Plan: * Patient is not capacitated to make her own health care decisions, uncertain if he will regain capacity. According to [place] statutes, health care proxy decision making falls to her spouse, Dc. * NO CODE * Plan for compassionate withdrawal of life support today. Anticipatory guidance provided. * Exhibits B & C chart signed. * Discussed with Dr. Grullon and nursing staff. * Pottery Decoration Designer at bedside. * Palliative care will continue to follow throughout hospital course to assist with symptom management further clarification of treatment goals. Attestation Attestation: To help prompt me to consider important information that might be impacting today's encounter and assessment, information from prior notes written by myself or my colleagues may have been "brought forward" into today's note. My signature on this note, however, is an attestation that I personally performed the exam, history, and/or decision-making noted today, and, unless otherwise indicated, the interactions with patient, family, and staff as well as the review of records all occurred today. I also attest that the listed assessment and stated plan reflect my best clinical judgment today based on the combination of historical information, prior notes, and today's exam/ interactions. When time spent is documented, it refers only to time spent today by the signer, or if indicated, combined time spent today by collaborating physician/nurse practitioner.
--- NOTE | 2018-10-23 15:05 | P.DN ---
- Provider Primary care physician: Talha Maguire Admitting clinician: Farhana Temple Attending physician on admission: Hue Grullon Consults: 10/20/18 07:18 Consult to Pulmonology Routine Consulting Provider: Jackie Christopher Preferred Manufacturing Inspector:: Jackie Christopher Reason for Consultation: Active smoker, O2 dependency at home 3-4 LPM/N/C. Presented with Acute on Chronic COPD exacerbation , intubated Notified:: Service Spoke with:: agus Date Notified:: 10/20/18 Time Notified:: 07:38 Ordering Provider: LOREN 10/21/18 10:45 Consult to Palliative Care Stat Consulting Provider: Xochilt Araiza For STAT consult, spoke directly to:: IVELISSE Reason for Consultation: GOAL OF CARE Notified:: Service Spoke with:: [place] Date Notified:: 10/21/18 Time Notified:: 10:58 Ordering Provider: LOREN 10/23/18 08:34 Consult to Infectious Diseases Routine Consulting Provider: Merry Carvajal Preferred Manufacturing Inspector:: Merry Carvajal Reason for Consultation: Leukocytosis in the setting of acute on chronic COPD exacerbation Notified:: Service Spoke with:: javi Date Notified:: 10/23/18 Time Notified:: 08:45 Ordering Provider: LOREN - Date and Time Date of admission: 10/18/18 11:02 Date of : 10/23/18 Time of : 12:07 - Summary Brief History: This is a 68-year-old female that presented to the ED, with increased lethargy. Patient has a known history of COPD. Laboratory and imaging studies revealed the patient had a CO2 of 111 noted to be in hypercapnic respiratory failure and was emergently intubated in the ED. the patient was noted to have right basilar consolidation empiric antibiotics for H CAP was initiated secondary to the fact the patient had recently been in a shelter facility for approximately 1 month. Patient's past medical history is significant for atrial fibrillation, COPD, morbid obesity, and tobacco use disorder. Result Diagrams: 10/23/18 03:26 10/23/18 03:26 Significant Findings: Abnormal Lab Results 10/22/18 10/22/18 10/23/18 17:34 22:57 03:26 WBC 14.7 H RBC 4.20 Hgb 13.5 Hct 41.9 MCV 99.8 MCH 32.1 MCHC 32.2 RDW 17.5 H Plt Count 218 MPV 9.4 Neut % (Auto) 93.7 H Lymph % (Auto) 1.7 L [place] % (Auto) 4.5 Eos % (Auto) 0.0 Baso % (Auto) 0.1 Neut # (Auto) 13.8 H Lymph # (Auto) 0.2 L [place] # (Auto) 0.7 Eos # (Auto) 0.0 Baso # (Auto) 0.0 WBC Differential . Differential Comment Auto diff final Puncture Site Patient Temperature O2 Saturation ABG pH ABG pCO2 ABG pO2 ABG HCO3 ABG O2 Content ABG Base Excess ABG Methemoglobin Josse Test Hemoglobin Carboxyhemoglobin O2 Delivery Device Vent Setting Inspired O2 Critical Value Sodium Potassium Chloride Carbon Dioxide Anion Gap BUN Creatinine Estimated GFR POC Glucose 239 H 193 H Random Glucose Calcium Phosphorus Magnesium Random Vancomycin 10/23/18 10/23/18 03:26 04:25 WBC RBC Hgb Hct MCV MCH MCHC RDW Plt Count MPV Neut % (Auto) Lymph % (Auto) [place] % (Auto) Eos % (Auto) Baso % (Auto) Neut # (Auto) Lymph # (Auto) [place] # (Auto) Eos # (Auto) Baso # (Auto) WBC Differential Differential Comment Puncture Site Right radial Patient Temperature 98.6 O2 Saturation 91 ABG pH 7.39 ABG pCO2 54 H* ABG pO2 71 ABG HCO3 32 H ABG O2 Content 17.2 ABG Base Excess 7.5 H ABG Methemoglobin 1.4 Josse Test Present Hemoglobin 13.5 Carboxyhemoglobin 0.9 O2 Delivery Device Ventilator Vent Setting Prvc18/500/1.0/+5 Inspired O2 65 Critical Value Yes Sodium 153 H Potassium 4.7 Chloride 115 H Carbon Dioxide 34.0 H Anion Gap 4 L BUN 78 H Creatinine 1.33 H Estimated GFR 39 L POC Glucose Random Glucose 205 H Calcium 8.6 Phosphorus 3.1 Magnesium 2.6 H Random Vancomycin 17.7 Hospital Course: 10/19: FiO2 requirements decreased to 50%. CPAP trials initiated early this a.m.. ETT retracted 2cm, due to chest x-ray results ,to 21cm. On daily sedation vacation GCS 11 T. She has periods of agitation she remains on low- dose Versed at 1 mg fentanyl at 100 mics currently on CPAP trials. 10/20: Afebrile .GCS 11 T off sedation. Methylprednisolone initiated yesterday chest x-ray revealing slight improvement in irrigation today. Pulmonology consult pending appreciate recommendations . Patient normally utilizes home O2 3-4 L via nasal cannula . IV fluids discontinued last night noted rales in lung bases. Tube feeds to be initiated today. The patient continues on empiric antibiotics, influenza A/B pending. FiO2 requirements increased last night to 70% with noted ABG PaO2 of 57. Patient failed CPAP trials yesterday. 10/21: The patient's respiratory status continued to deteriorate. The patient was transferred to [facility], FIO2 75%. Overnight the patient ventilator management changed to Biphasic mode.Repeat ABG pending this afternoon. Tube feeds reinitiated. CTA noted no PE, US chest showed minimal pleural effusions. Eliquis restarted. 10/22: Noted decrease FiO2 requirements in the last 24hrs. Patient's chest x- ray shows improvement patient continues on biphasic mode , FiO2 now down to 40% . The patient converted into A. fib RVR yesterday heart rate in the 120s patient continued on metoprolol and amiodarone home medications digoxin 250 mics x1 dose was given. Patient now rate controlled. A family meeting was convened yesterday midmorning discussion with family and daughter and grandchildren request made to change CODE STATUS to DNR. Palliative care was consulted and case was discussed with Ms. Ivelisse Perez. Per family's reporting the patient was a DNR in the [facility] visiting [place], and has been was not able to make that decision emergently and proceeded with intubation in the ED. the patient's CODE STATUS was changed to DNR. Creatinine noted to be elevated most likely secondary to CTA and Lasix for diuresis. Lasix now placed on hold. 10/23: Afebrile. Overnight the patient had increased FiO2 requirements to 70%. Chest x-ray worsening. All sedation discontinued last evening, requested by family, and daughter to have patient awake this a.m. for possible communication prior to tentative ventilator withdrawal. This patient is noted to have spontaneous eye opening, and tracking, but is not following my commands this am. Continued elevation in WBC count, possible leukemoid reaction secondary to methylprednisolone, ID consulted. All cultures remain negative at this time. 10/23: Family and clergy at bedside with the request of the patient ventilator withdrawal/comfort care measures initiated. The patient at 12:07 PM
== END 2018-10-23 12:07 | disposition expired | DRG 207 ==
LOC: PHED 09:12 → PHEDA 11:02 → PHICU 13:09 → HIMC 10-20 17:15
PROVIDERS: ADMIT Anesthesiology; ATTEND Anesthesiology
CPT/HCPCS: 31500; 36600; 70450; 71010; 71045; 71275; 74000; 74018; 76604; 76937; 80048; 80053; 80061; 80076; 80202; 81001; 82140; 82550; 82805; 82948; 82962; 83036; 83605; 83735; 84100; 84436; 84443; 84484; 85025; 85610; 85730; 87040; 87070; 87086; 87205; 87275; 87276; 87449; 87633; 87641; 87804; 90765; 90775; 93005; 93306; 93970; 94002; 94003; 94640; 94656; 94657; 94664; 94665; 96365; 96375; 99291; J0330; J0456; J0692; J1160; J1815; J1940; J1980; J2060; J2250; J2270; J2370; J2704; J2920; J2930; J3010; J3370; J7030; J7040; J7050; Q9967